=== PATIENT | male | born 1960 | race Caucasian/White ===

== ENCOUNTER → 2016-07-30 | Outpatient (CLI) | payer OTHER ==
[2016-07-30 16:19] LABS: Bilirubin, Delta 0.3 mg/dL (0.0-0.2); Total Bilirubin 0.5 mg/dL (0.2-1.3); Total Protein 7.7 g/dL (6.3-8.2)
== END | disposition home or self-care (01) ==
LOC: LABWHC1 15:23
PROVIDERS: ATTEND Internal Medicine
DX: R94.5 Abnormal results of liver function studies (principal)
CPT/HCPCS: 36415; 80076

== ENCOUNTER 2016-08-09 18:14 | Inpatient (IN) | payer OTHER ==
[2016-08-09] MEDS ORDERED: SODIUM CHLORIDE 0.9% 1,000 ML IV STA (18:54)
[2016-08-09] MEDS ORDERED: HYDROmorphone 1 MG/ML 1 ML SYRINGE IVP STA (18:54)
[2016-08-09] MEDS ORDERED: SODIUM CHLORIDE 0.9% 500 ML IV STA (18:54)
[2016-08-09] MEDS ORDERED: PANTOPRAZOLE 40 MG/10 ML VIAL IVP STA (18:54)
[2016-08-09] MEDS ORDERED: ONDANSETRON 4 MG/2 ML VIAL IVP STA (18:54)
--- NOTE | 2016-08-09 19:02 | ED ---
General Adult HPI - General Chief complaint: Abdominal Pain Stated complaint: vomiting Time Seen by Provider: 08/09/16 18:41 Source: patient, family, RN notes reviewed Mode of arrival: ambulatory Limitations: no limitations - History of Present Illness Initial comments: Chief complaint and history of present illness; this is a 55-year-old male here with his . Patient reports having abdominal cramping and pain for 3 or 4 days. Initially had nausea vomiting 2 days ago and no nausea vomiting for the last 2 days. But decreased appetite he has not had a bowel movement for 4 days. He has been taking medications to help him go but nothing is happened he has had cramps he has passed some gas. Patient normally has 1-2 bowel movements per day typically loose. - Related Data Home Medications Medication Instructions Recorded Confirmed Hydrochlorothiazide [Hydrodiuril] 25 mg PO DAILY 12/08/13 08/09/16 ALPRAZolam [ALPRAZolam] 0.25 mg PO TID PRN 07/17/14 08/09/16 Ondansetron Odt [Zofran ODT] 4 mg PO Q4H PRN 07/17/14 08/09/16 Cyclobenzaprine [Flexeril] 10 mg PO TID PRN 08/09/16 08/09/16 Ibuprofen [Motrin] 200 - 400 mg PO Q6HR PRN 08/09/16 08/09/16 Ketorolac [Toradol] 1 dose IM ONCE PRN 08/09/16 08/09/16 Allergies Allergy/AdvReac Type Severity Reaction Status Date / Time acetaminophen [From [place]] AdvReac Nausea Verified 08/09/16 19:07 hydrocodone [From [place]] AdvReac Nausea Verified 08/09/16 19:07 Review of Systems ROS Statement: Those systems with pertinent positive or pertinent negative responses have been documented in the HPI. Review of systems no visual acuity changes headache chest pain or shortness of breath. The patient has crampy abdominal pain. No back pain. Nausea vomiting 2 days ago and none since then. No bowel movement for the past 4 days. No trouble urinating but decreased input as D decreased output. No complaints of any weaknesses or neuro deficits. All systems reviewed. Past medical problems significant for hypertension. He had 14 inches of his colon removed 3 years ago for colon cancer. He was followed by 6 months of chemotherapy. No recurrence to date. Also history of kidney stones. No back pain difficulty urinating. Surgeries include partial colon resection, abdominal hernia repair, and appendectomy. Patient's family history sister had tongue cancer. Patient has ALLERGIES to hydrocodone. Nonsmoker nondrinker. ROS Other: All systems not noted in ROS Statement are negative. Past Medical History Past Medical History: Cancer, Hypertension Additional Past Medical History / Comment(s): HX COLON CA, INCISIONAL HERNIA, History of Any Multi-Drug Resistant Organisms: None Reported Past Surgical History: Appendectomy, Bowel Resection Additional Past Surgical History / Comment(s): RIGHT SIDE PORT A CATH Past Anesthesia/Blood Transfusion Reactions: No Reported Reaction Past Psychological History: Anxiety Smoking Status: Never smoker Past Alcohol Use History: None Reported Past Drug Use History: None Reported - Past Family History Sister(s) Family Medical History: Cancer Additional Family Medical History / Comment(s): TONGUE General Exam - General Exam Comments Initial Comments: General: The patient is awake and alert, complaining of on again off again abdominal cramping no bowel movement for 4 days. Vital signs show temperature 97.4 pulse 98 history rate 16 pulse ox 96% room air blood pressure 140/82. Mildly elevated systolic diastolic noted patient will be seen by his family doctor in the next week. Eye: Pupils are equal, round and reactive to light, extra-ocular movements are intact ; there is normal conjunctiva bilaterally. No signs of icterus. Ears, nose, mouth and throat: There are moist mucous membranes and no oral lesions. Neck: The neck is supple, there is no tenderness. Cardiovascular: There is a regular rate and rhythm. No murmur, rub or gallop is appreciated. Respiratory: Lungs are clear to auscultation, respirations are non-labored, breath sounds are equal. No wheezes, stridor, rales, or rhonchi. Gastrointestinal: Evidence of a surgical scar ventrally. 2 palpable hernias to the abdominal wall. Hypoactive bowel sounds. No masses palpable. Back: There is no tenderness to palpation in the midline. There is no obvious deformity. No rashes noted. Musculoskeletal: Normal ROM, no tenderness, There is no pedal edema. There is no calf tenderness or swelling. Sensation intact. Pulses equal bilaterally 2+. Neurological: No neuro deficits Skin: Skin is warm and dry and no rashes or lesions are noted. Psychiatric: Cooperative, appropriate mood & affect, normal judgment. Limitations: no limitations Course Vital Signs 08/09/16 08/09/16 08/09/16 18:27 20:35 22:00 Temperature 97.4 F L Pulse Rate 98 81 72 Respiratory 16 16 16 Rate Blood Pressure 140/82 136/74 134/71 O2 Sat by Pulse 96 96 96 Oximetry 08/09/16 23:51 Temperature Pulse Rate 80 Respiratory 16 Rate Blood Pressure 149/85 O2 Sat by Pulse 95 Oximetry Medical Decision Making - Medical Decision Making Medical decision making the patient's white count 9.2 hemoglobin 14 hematocrit of 43, urine clean no signs of infection. Amylase and lipase are normal limits. Potassium is 4.3 to BUN 19 creatinine 1.22 with a GFR greater than 60. Total bilirubin is elevated 1.6, AST ALT both elevated twice normal reports he has had elevated liver enzymes in the past. X-ray of the abdomen was done and reviewed by radiologist his impression is there is some mildly dilated loops of small bowel in the mid abdomen with fluid levels. Large bowel gas pattern is normal. There is no sign of free air. Lung bases are clear. There are no pathologic calcifications over the kidneys. Impression; mildly dilated small bowel is nonspecific and could relate partial mechanical obstruction or small bowel ileus. No free air. As read by Dr. Solares Ultrasound of the right upper quadrant was done and reviewed by radiologist his final impression is negative right upper quadrant abdominal sonogram. No gallstones or dilated ducts. No hydronephrosis seen in the right kidney. As read by Dr. Solares Labs and CAT scan report were read and reviewed with Dr. Dr. Robins on-call for Dr. Woods. Patient be admitted Dr. Woods with consultation from Dr. Garcia. Patient will be kept nothing by mouth this evening kept comfortable with analgesics as needed. And hydrated. - Lab Data Result diagrams: 08/09/16 19:10 08/09/16 19:10 Lab Results 08/09/16 08/09/16 08/09/16 Range/Units 19:10 19:10 19:10 WBC 9.7 (3.8-10.6) k/uL RBC 5.50 (4.30-5.90) m/uL Hgb 14.7 (13.0-17.5) gm/dL Hct 43.5 (39.0-53.0) % MCV 79.0 L (80.0-100.0) fL MCH 26.8 (25.0-35.0) pg MCHC 33.9 (31.0-37.0) g/dL RDW 14.0 (11.5-15.5) % Plt Count 181 (150-450) k/uL Neutrophils % 78 % Lymphocytes % 12 % Monocytes % 7 % Eosinophils % 3 % Basophils % 0 % Neutrophils # 7.5 (1.3-7.7) k/uL Lymphocytes # 1.1 (1.0-4.8) k/uL Monocytes # 0.6 (0-1.0) k/uL Eosinophils # 0.3 (0-0.7) k/uL Basophils # 0.0 (0-0.2) k/uL Sodium 141 (137-145) mmol/L Potassium 4.3 (3.5-5.1) mmol/L Chloride 101 (98-107) mmol/L Carbon Dioxide 27 (22-30) mmol/L Anion Gap 13 mmol/L BUN 19 (9-20) mg/dL Creatinine 1.22 (0.66-1.25) mg/dL Est GFR (MDRD) Af Amer >60 (>60 ml/min/1.73 sqM) Est GFR (MDRD) Non-Af >60 (>60 ml/min/1.73 sqM) Glucose 104 H (74-99) mg/dL Plasma Lactic Acid Amandeep 1.4 (0.7-2.0) mmol/L Calcium 9.1 (8.4-10.2) mg/dL Total Bilirubin 1.4 H (0.2-1.3) mg/dL AST 127 H (17-59) U/L ALT 140 H (21-72) U/L Alkaline Phosphatase 89 (38-126) U/L Total Protein 7.5 (6.3-8.2) g/dL Albumin 4.2 (3.5-5.0) g/dL Amylase <30 L (30-110) U/L Lipase 42 (23-300) U/L Urine Color Urine Appearance (Clear) Urine pH (5.0-8.0) Ur Specific [place] (1.001-1.035) Urine Protein (Negative) Urine Glucose (UA) (Negative) Urine Ketones (Negative) Urine Blood (Negative) Urine Nitrate (Negative) Urine Bilirubin (Negative) Urine Urobilinogen (<2.0) mg/dL Ur Leukocyte Esterase (Negative) 08/09/16 Range/Units 19:19 WBC (3.8-10.6) k/uL RBC (4.30-5.90) m/uL Hgb (13.0-17.5) gm/dL Hct (39.0-53.0) % MCV (80.0-100.0) fL MCH (25.0-35.0) pg MCHC (31.0-37.0) g/dL RDW (11.5-15.5) % Plt Count (150-450) k/uL Neutrophils % % Lymphocytes % % Monocytes % % Eosinophils % % Basophils % % Neutrophils # (1.3-7.7) k/uL Lymphocytes # (1.0-4.8) k/uL Monocytes # (0-1.0) k/uL Eosinophils # (0-0.7) k/uL Basophils # (0-0.2) k/uL Sodium (137-145) mmol/L Potassium (3.5-5.1) mmol/L Chloride (98-107) mmol/L Carbon Dioxide (22-30) mmol/L Anion Gap mmol/L BUN (9-20) mg/dL Creatinine (0.66-1.25) mg/dL Est GFR (MDRD) Af Amer (>60 ml/min/1.73 sqM) Est GFR (MDRD) Non-Af (>60 ml/min/1.73 sqM) Glucose (74-99) mg/dL Plasma Lactic Acid Amandeep (0.7-2.0) mmol/L Calcium (8.4-10.2) mg/dL Total Bilirubin (0.2-1.3) mg/dL AST (17-59) U/L ALT (21-72) U/L Alkaline Phosphatase (38-126) U/L Total Protein (6.3-8.2) g/dL Albumin (3.5-5.0) g/dL Amylase (30-110) U/L Lipase (23-300) U/L Urine Color Yellow Urine Appearance Clear (Clear) Urine pH 5.5 (5.0-8.0) Ur Specific [place] 1.006 (1.001-1.035) Urine Protein Negative (Negative) Urine Glucose (UA) Negative (Negative) Urine Ketones Negative (Negative) Urine Blood Negative (Negative) Urine Nitrate Negative (Negative) Urine Bilirubin Negative (Negative) Urine Urobilinogen 2.0 (<2.0) mg/dL Ur Leukocyte Esterase Negative (Negative) Disposition Clinical Impression: Incarcerated umbilical hernia Disposition: ADMITTED IP TO THIS HOSP Condition: Stable
[2016-08-09 19:29] LABS: Basophils % (A) 0 %; CH 27.5; Eosinophils # (A) 0.3 k/uL (0-0.7); Eosinophils % (A) 3 %; HCT 43.5 % (39.0-53.0); HDW 3.12; HGB 14.7 gm/dL (13.0-17.5); Luc # (Auto) 0.09; Luc % (Auto) 1; Lymphocytes # (A) 1.1 k/uL (1.0-4.8); Lymphocytes % (A) 12 %; MCH 26.8 pg (25.0-35.0); MCHC 33.9 g/dL (31.0-37.0); Mean Platelet Volume 7.5; Monocytes # (A) 0.6 k/uL (0-1.0); Monocytes % (A) 7 %; Neutrophils # (A) 7.5 k/uL (1.3-7.7); Neutrophils % (A) 78 %; WBC 9.7 k/uL (3.8-10.6); WBC (Perox) 9.76
[2016-08-09 19:39] LABS: Appearance,Urine Clear (Clear); Bilirubin,Urine Negative (Negative); Glucose,Urine (UA) Negative (Negative); Ketones,Urine Negative (Negative); Leukocyte Esterase,Urine Negative (Negative); Nitrite,Urine Negative (Negative); PH, Urine 5.5 (5.0-8.0); Protein,Urine Negative (Negative); Specific Gravity,Urine 1.006 (1.001-1.035); UA Billing (MACRO vs. MICRO) CHEM
[2016-08-09 19:43] LABS: ALT 140 U/L (21-72); AST 127 U/L (17-59); Alkaline Phosphatase 89 U/L (38-126); Amylase <30 U/L (30-110); Anion Gap 13 mmol/L; Blood Urea Nitrogen 19 mg/dL (9-20); Calcium 9.1 mg/dL (8.4-10.2); Carbon Dioxide 27 mmol/L (22-30); Chloride 101 mmol/L (98-107); Glucose 104 mg/dL (74-99); Non-African American GFR(MDRD) >60 (>60 ml/min/1.73 sqM); Potassium 4.3 mmol/L (3.5-5.1); Sodium 141 mmol/L (137-145); Total Bilirubin 1.4 mg/dL (0.2-1.3); Total Protein 7.5 g/dL (6.3-8.2)
--- NOTE | 2016-08-09 20:00 | XR ---
EXAMINATION TYPE: XR abdomen 2V DATE OF EXAM: 08/09/2016 7:45 PM COMPARISON: 10/19/2014 HISTORY: Vomiting TECHNIQUE: 2 views FINDINGS: There are some mildly dilated loops of small bowel in the mid abdomen with fluid levels. La rge bowel gas pattern is normal. There is no sign of free air. Lung bases are clear. There are no pat hologic calcifications over the kidneys. IMPRESSION: Mildly dilated small bowel is nonspecific and could relate to partial mechanical obstruct ion or small bowel ileus. No free air.
[2016-08-09] MEDS ORDERED: IOHEXOL 350 MG/ML 25 ML BOTTLE (ORAL USE) PO PRN (20:52)
[2016-08-09] MEDS ORDERED: RX INFO: IV CONTRAST WAS GIVEN 1 EACH MISC MISCELLANE PRN (20:52)
--- NOTE | 2016-08-09 21:16 | US ---
EXAMINATION TYPE: US abdomen limited DATE OF EXAM: 08/09/2016 8:40 PM COMPARISON: CT in pacs CLINICAL HISTORY: nausea vomiting, elevated bilirubin and liver enzy. Abdomen pain and N/V/D x 4 days , obese patient EXAM MEASUREMENTS: Liver Length: 20.0 cm Gallbladder Wall: 0.3 cm CBD: 0.3 cm Right Kidney: 12.5 x 6.2 x 6.6 cm TECHNOLOGIST IMPRESSION: Pancreas: obscured by overlying bowel gas Liver: enlarged at 20.0cm, visualized portions appear slightly heterogeneous with increased echogeni city throughout, scanned intercostally, limited by rib shadowing Gallbladder: visualized portions appear wnl, scanned intercostally, limited by rib shadowing Evidence for sonographic Aceves's sign: no CBD: visualized portions wnl, limited by overlying bowel gas Right Kidney: visualized portions wnl, limited by rib shadowing and overlying bowel gas IMPRESSION: Negative right upper quadrant abdominal sonogram. No gallstones or dilated ducts. No hydr onephrosis seen in the right kidney.
--- NOTE | 2016-08-09 23:37 | CT ---
EXAMINATION TYPE: CT abdomen pelvis w con DATE OF EXAM: 08/09/2016 10:53 PM COMPARISON: 10/22/2015 HISTORY: abd pain and constipation, history of colon CA CT DLP: 2018.80 mGycm Automated exposure control for dose reduction was used. TECHNIQUE: Helical acquisition of images was performed from the lung bases through the pelvis. CONTRAST: Performed with Oral Contrast and with IV Contrast, patient injected with 100 mL of Omnipaque 300. FINDINGS: The lung bases are clear. There is no pleural effusion. The liver spleen pancreas gallbladder appear normal. Bile ducts are not dilated. There is no adrenal mass. Kidneys show satisfactory contrast opac ification. There is no hydronephrosis. There is a 2 mm calcification in the lower pole right kidney. There is no retroperitoneal adenopathy. There is an umbilical hernia that contains omental fat and also a loop of small bowel. There are mult iple dilated small bowel loops with fluid. These measure up to 3.4 cm. The hernia appears to be the t ransition point. Large bowel appears normal without sign of obstruction. The bladder distends smoothly. There is no evidence of a pelvic mass. There are prostatic calcificati ons. I see no bony destructive process. IMPRESSION: THERE IS AN INCARCERATED LOOP OF SMALL BOWEL WITH DILATED SMALL BOWEL CONSISTENT WITH A MECHANICAL SM ALL BOWEL OBSTRUCTION THAT IS NEW COMPARED TO LAST CT SCAN. VENTRAL HERNIA.
[2016-08-10] MEDS ORDERED: KETOROLAC 30 MG/ML 1 ML VIAL IVP STA (00:06)
[2016-08-10] MEDS ORDERED: NALOXONE 0.4 MG/ML 1 ML VIAL IV PRN (00:26)
[2016-08-10] MEDS ORDERED: HYDROmorphone 1 MG/ML 1 ML SYRINGE IVP STA (00:40)
[2016-08-10] MEDS: SODIUM CHLORIDE 0.9% 1,000 ML IV SCH ×2 (00:50→08:05)
[2016-08-10] MEDS: KETOROLAC 30 MG/ML 1 ML VIAL IVP PRN (04:20)
[2016-08-10] MEDS: HYDROmorphone 1 MG/ML 1 ML SYRINGE IVP PRN ×5 (04:47→23:04)
[2016-08-10] MEDS: PANTOPRAZOLE 40 MG/10 ML VIAL IV SCH (08:58)
[2016-08-10] MEDS: POTASSIUM CHLORIDE IV SCH ×4 (12:34→23:04)
[2016-08-10] MEDS: NACL IV SCH ×4 (12:34→23:04)
[2016-08-10] MEDS: DEXTROSE IV SCH ×4 (12:34→23:04)
--- NOTE | 2016-08-10 12:42 | CONS ---
DATE OF CONSULTATION: This is a 55-year-old white male who was admitted by Dr. Robins and Dr. Razo was asked to see the patient in consultation as he is the patient's primary care physician. I saw the patient for Dr. Razo as I am covering him this weekend. The patient was brought to the emergency room with complains of nausea, vomiting, and abdominal pain and constipation for the past 3 days and this was progressively getting worse. Patient was getting abdominal cramps and there was no blood in the vomitus. He was able to pass gas, but was constipated for about 3 days. In the emergency room, his CBC showed a WBC count of 9.7 and hemoglobin 14.7, and platelet count on 181,000. Sodium 141, potassium 4.3, creatinine 1.22 and BUN 19, glucose 104. AST was slightly elevated, which was 127. ALT also slightly elevated, which was 140. Serum amylase and lipase are within normal limits. Urinalysis was negative. X-ray of the abdomen showed a mild dilated bowel small bowel loops and a CT of the abdomen showed incarcerated ventral hernia. Ultrasound of the abdomen was essentially negative. Patient was admitted to the hospital for further evaluation and treatment. His past medical history reveals that he is known to have hypertensive cardiovascular disease and also has a history of carcinoma of the colon and he has had partial colon resection about 14 inches of colon removed 3 years ago and following this he has had adjuvant chemotherapy for about 6 months. He also has history of incisional hernia repair in the past. He hypertensive cardiovascular disease and also history of kidney stones. His current medications include: 1. HydroDIURIL 25 mg daily. 2. Xanax 0.25 mg p.o. t.i.d. p.r.n. 3. Also he has been on Motrin p.r.n. 4. Flexeril 10 mg t.i.d. p.r.n. HE IS ALLERGIC TO [place], WHICH MAKES HIM NAUSEATED. He does not smoke and he does not drink alcohol. FAMILY HISTORY: On sister had a cancer of the tongue otherwise family history noncontributory. REVIEW OF SYSTEMS: Patient denies any headache. Appetite has been poor lately and also he has nausea, vomiting, and constipation and abdominal cramps. He denies any chest pain. He has no cough. He has no polyuria or dysuria. He has no neurological symptoms. Physical examination reveals a 55-year-old white male moderately obese. He is alert and oriented. He is in no acute distress. He is receiving IV Dilaudid on a p.r.n. basis for pain control. There is no jaundice. There is no generalized lymphadenopathy. There are no petechiae or bruises. His temperature 97.4, pulse 88 per minute and respiration 16, blood pressure 148/84. Examination of the ENT negative. Neck is supple. There is no jugular venous distention. There is no goiter. There is no carotid bruit. Heart is in sinus rhythm. Lungs are clear to auscultation and percussion. ABDOMEN: Soft and slightly distended. There is evidence of ventral hernia and there is bowel sounds hyperactive in the hernia site. There is no mass palpable. Examination of the lower extremities revealed no pitting edema. Neurologic examination does not reveal any localizing signs IMPRESSION: 1. Nausea, vomiting, abdominal cramps and constipation. 2. Incarcerated ventral hernia. 3. Past history of colon cancer status post partial colon resection and postop postoperative adjuvant chemotherapy. 4. Hypertensive cardiovascular disease. Patient's vital signs are stable. There are no acute cardiorespiratory problems. CBC and CMP and EKG unremarkable. He is medically cleared for surgery. Thank you for asking me to see this patient in consultation. Dr. Razo will be back to work tomorrow and he will resume care of the patient for his medical problems.
--- NOTE | 2016-08-10 16:38 | P.GSHP ---
History of Present Illness H&P Date: 08/10/16 Chief Complaint: Abdominal pain and constipation The patient states she's developed some midabdominal discomfort crampy in nature associated with nausea and vomiting and a lot of which resolved about 2 days ago. However he hadn't had a bowel movement for about 5 days. I took laxatives without improvement. She really did not felt any definite lump or mass. ventral incisional hernia. Had colon resection for malignancy several years ago followed by chemotherapy. He had a computed tomography scan which showed an incarcerated ventral incisional hernia with a loop of small bowel in it. Not particularly edematous. Ultrasound was negative for gallstones. Past history: As above. Hypertension. Appendectomy. Social history patient is . Alcohol socially. Review of systems otherwise negative. No chest pain no urinary symptoms no blood in the stool. No OUTREACH SPECIALIST problems. Physical exam the patient is awake alert in no distress comfortable cheerful. States his abdominal discomfort is markedly improved. His temperature is normal. Vitals are normal. Color and hydration are good. Heart regular rhythm no murmurs. Lungs are clear. Abdomen is soft. Not distended. Has a midline scar. His ventral incisional hernia just above the umbilicus. Soft tissue fullness and swelling mild tenderness but no guarding or rebound. Irreducible. Fairly nontender now. Extremities normal. OUTREACH SPECIALIST intact. Impression incarcerated ventral incisional hernia stable. No evidence of acute obstruction or strangulation at this time. Recommendation. Recommend a off the incarcerated ventral incisional hernia which will be scheduled for tomorrow with Dr. Woods patient understands and agrees. Past Medical History Past Medical History: Cancer, Hypertension Additional Past Medical History / Comment(s): HX COLON CA, INCISIONAL HERNIA, History of Any Multi-Drug Resistant Organisms: None Reported Past Surgical History: Appendectomy, Bowel Resection Additional Past Surgical History / Comment(s): RIGHT SIDE PORT A CATH. Removed Past Anesthesia/Blood Transfusion Reactions: No Reported Reaction Past Psychological History: Anxiety Smoking Status: Never smoker Past Alcohol Use History: None Reported Past Drug Use History: None Reported - Past Family History Father History Unknown: Yes Mother History Unknown: Yes Sister(s) Family Medical History: Cancer Additional Family Medical History / Comment(s): TONGUE Medications and Allergies Home Medications Medication Instructions Recorded Confirmed Type Hydrochlorothiazide [Hydrodiuril] 25 mg PO DAILY 12/08/13 08/09/16 History ALPRAZolam [ALPRAZolam] 0.25 mg PO TID PRN 07/17/14 08/09/16 History Ondansetron Odt [Zofran ODT] 4 mg PO Q4H PRN 07/17/14 08/09/16 History Allergies Allergy/AdvReac Type Severity Reaction Status Date / Time hydrocodone [From [place]] AdvReac Nausea Verified 08/09/16 19:07 Surgical - Exam Vital Signs Temp Pulse Resp BP Pulse Ox 97.4 F L 98 16 140/82 96 08/09/16 18:27 08/09/16 18:27 08/09/16 18:27 08/09/16 18:27 08/09/16 18:27 Results - Labs 08/09/16 19:10 08/09/16 19:10
[2016-08-10] MEDS: ONDANSETRON 4 MG/2 ML VIAL IVP PRN (18:27)
[2016-08-10] MEDS: HEPARIN SODIUM,PORCINE 5,000 UNIT/ML 1 ML VIAL SQ SCH (21:40)
[2016-08-11] MEDS: HYDROmorphone 1 MG/ML 1 ML SYRINGE IVP PRN ×5 (02:37→23:55)
[2016-08-11 07:56] LABS: Basophils % (A) 1 %; CH 27.2; CHCM 33.2; Eosinophils # (A) 0.2 k/uL (0-0.7); Eosinophils % (A) 3 %; HCT 40.5 % (39.0-53.0); HDW 3.13; HGB 13.1 gm/dL (13.0-17.5); Luc # (Auto) 0.09; Luc % (Auto) 2; Lymphocytes # (A) 1.4 k/uL (1.0-4.8); Lymphocytes % (A) 25 %; MCH 26.7 pg (25.0-35.0); MCHC 32.5 g/dL (31.0-37.0); MCV 82.2 fL (80.0-100.0); Mean Platelet Volume 6.7; Monocytes # (A) 0.4 k/uL (0-1.0); Monocytes % (A) 6 %; Neutrophils # (A) 3.7 k/uL (1.3-7.7); Neutrophils % (A) 64 %; RBC 4.92 m/uL (4.30-5.90); RDW 14.4 % (11.5-15.5); WBC 5.8 k/uL (3.8-10.6); WBC (Perox) 5.96
--- NOTE | 2016-08-11 08:05 | P.PN ---
Progress Note - Text The patient is a 55-year-old gentleman who presented 2 days ago to the emergency room with continued abdominal discomfort and nausea and vomiting along with lack of bowel movements. Patient is had a previous colon cancer resection in the past several years and CAT scan revealed an incarcerated ventral incisional hernia with a loop of bowel present. Patient does have history as stated above of previous colon cancer treated with chemotherapy along with a history of hypertension and obesity. Also hyperlipidemia. Patient has been evaluated by surgery. This morning he is still having some intermittent abdominal discomfort but generally controlled with analgesics. Still has not had any bowel movements. Intermittent nausea. Vital signs reveal a alert and cooperative gentleman in no acute distress. Temperature was 97.9 with a pulse of 74 and respirations nonlabored at 18. Blood pressure 115/75 and he is 97% saturated on room air. No carotid bruits. Lung and heart examination is clear and regular. Abdomen is generally soft without rebound guarding or masses detected. No edema. No neurological deficits noted. Laboratory values CBC was for the most part unremarkable with a white count of 9.7 and hemoglobin 14.7 and platelet count of 181. Chemistries did reveal elevated AST and ALTs of 127 and 140 respectively. Amylase and lipase were unremarkable. Glucose 104. Bilirubin slightly elevated at 1.4. Urinalysis negative. Urine culture no growth. Impressions and plans: Overall this 55-year-old gentleman with underlying history of hypertension and obesity generally appears cardiovascular-kaur stable for likely surgery for an incarcerated hernia. Discussed with patient and family at bedside this morning. Will await further surgical recommendations.
[2016-08-11 08:13] LABS: Anion Gap 10 mmol/L; Blood Urea Nitrogen 14 mg/dL (9-20); Calcium 8.4 mg/dL (8.4-10.2); Carbon Dioxide 25 mmol/L (22-30); Chloride 105 mmol/L (98-107); Glucose 97 mg/dL (74-99); Non-African American GFR(MDRD) >60 (>60 ml/min/1.73 sqM); Potassium 4.2 mmol/L (3.5-5.1); Sodium 140 mmol/L (137-145)
[2016-08-11] MEDS: HEPARIN SODIUM,PORCINE 5,000 UNIT/ML 1 ML VIAL SQ SCH ×2 (09:09→23:57)
[2016-08-11] MEDS: PANTOPRAZOLE 40 MG/10 ML VIAL IV SCH (09:09)
[2016-08-11] MEDS: NACL IV SCH ×4 (09:10→22:39)
[2016-08-11] MEDS: DEXTROSE IV SCH ×4 (09:10→22:39)
[2016-08-11] MEDS: POTASSIUM CHLORIDE IV SCH ×4 (09:10→22:39)
[2016-08-11] MEDS ORDERED: IV FLUID CONTINUATION 1,000 ML IV ONE (16:15)
[2016-08-11] MEDS ORDERED: ONDANSETRON 4 MG/2 ML VIAL IVP ONE (16:16)
[2016-08-11] MEDS ORDERED: DEXAMETHASONE SOD PHOS (MDV) 100 MG/10 ML VIAL IVP ONE (16:17)
--- NOTE | 2016-08-11 16:17 | P.PN ---
Subjective Principal diagnosis: Abdominal wall hernia Patient says his pain is improved. Per the H&P pain began last week. This was crampy in nature. Appetite is diminished. No bowel function. CAT scan shows bowel loops within the abdominal wall hernia. Objective - Vital Signs Vital signs: Vital Signs Temp 97.5 F L 08/11/16 15:46 Pulse 72 08/11/16 15:46 Resp 16 08/11/16 15:46 BP 148/90 08/11/16 15:46 Pulse Ox 92 L 08/11/16 15:46 Intake & Output 08/10/16 08/11/16 08/11/16 18:59 06:59 18:59 Other: Voiding Method Toilet Toilet # Voids 1 - Exam Abdomen: Soft, slightly obese, minimally tender, mildly distended, multiple fascial defects present from the mid epigastric down to the umbilical region. The site of previous incisional herniorrhaphy appears free of fascial defect at this time. There is a palpable mass within one of these hernias that I believe represents the bowel loops seen on CAT scan. This appears to be incarcerated. - Labs CBC & Chem 7: 08/11/16 07:31 08/11/16 07:28 Assessment and Plan (1) Incarcerated incisional hernia Narrative/Plan: Clinical scenario was discussed in detail with the patient. At this time would advise operative repair of this incarcerated incisional hernia. The potential for bowel resection and mesh placement was discussed. The risks of bleeding, infection, bowel injury, recurrence, wound infection, anesthesia-related comp locations were discussed. He understands and wishes to proceed. Status: Acute
[2016-08-11] MEDS ORDERED: PROPOFOL 10 MG/ML 20 ML VIAL IV ONE (16:32)
[2016-08-11] MEDS ORDERED: SUCCINYLCHOLINE CHLORIDE 100 MG/5 ML SYR IV ONE (16:32)
[2016-08-11] MEDS ORDERED: VECURONIUM 10 MG VIAL IV ONE (16:32)
[2016-08-11] MEDS ORDERED: LIDOCAINE 1% INJ 10MG/ML (20 ML MDV) ONE (16:32)
[2016-08-11] MEDS ORDERED: MIDAZOLAM 2 MG/2 ML VIAL ONE (16:32)
[2016-08-11] MEDS ORDERED: KETOROLAC 30 MG/ML 1 ML VIAL ONE (16:32)
[2016-08-11] MEDS ORDERED: fentaNYL (PF) 50 MCG/ML 2 ML AMP ONE (16:32)
[2016-08-11] MEDS ORDERED: HYDROmorphone (PF) 1 MG/ML ONE (16:32)
[2016-08-11] MEDS ORDERED: SODIUM CHLORIDE 0.9% 50 ML with ceFAZolin 3,000 MG IV ONE ×2 (17:00)
[2016-08-11] MEDS ORDERED: BUPIVACAINE (PF) 0.25% 30 ML VIAL SQ ONE (17:16)
[2016-08-11] MEDS ORDERED: LACTATED RINGERS 1,000 ML IV ONE (18:37)
[2016-08-11] MEDS: HYDROmorphone 1 MG/ML 1 ML SYRINGE IVP ONE ×3 (19:24→19:38)
--- NOTE | 2016-08-11 20:35 | P.OP ---
Date of Procedure: 08/11/16 Procedure(s) Performed: PREOPERATIVE DIAGNOSIS: Incarcerated incisional hernia POSTOPERATIVE DIAGNOSIS: Same PROCEDURE: 1. Repair incarcerated incisional hernia with mesh 2. Lysis of adhesions 3. Partial omentectomy SURGEON: Chuck EBL: 50 mL ANESTHESIA: General COMPLICATIONS: None OPERATIVE PROCEDURE: Patient place never table in supine position. The patient was placed under general anesthesia. A Paez catheter and oral gastric tube were placed. The abdomen was prepped and draped in the usual sterile fashion. The patient's midline incision was re-incised. Dissection through the subcutaneous fat took place using electrocautery. The patient's hernia defects were identified. The fascia was circumferentially dissected. The patient had 4 fairly large hernia defects with the largest measuring about 4 cm in diameter. These were all included into one large fascial opening. In doing so the hernia sacs were excised. A portion of the omentum required excision as well. Extensive lysis of adhesions to the undersurface of the abdominal wall took place. At the site of the incarcerated hernia there was a portion of bowel present as well as omentum that revealed chronic inflammatory changes. The hernia sac here was quite thickened. The bowel thankfully was viable. No serosal tears were identified. The omentum present was excised. I did later extend the incision into the infraumbilical location because of a defect there as well. A Ventrio 18 cm mesh was utilized. This was circumferentially secured to the fascia using trans-fascial 2-0 Nurolon and 0 Ethibond sutures. The secure strap open device was also utilized circumferentially. Exquisite care was taken to avoid injury to the adjacent small bowel loops. Once the mesh was securely in place the midline fascia was reapproximated using interrupted 0 Ethibond sutures. The subcutaneous tissues were closed using interrupted 20 and 3-0 Vicryl sutures after a drain was placed anterior to the fascial closure. This drain was brought out through a separate stab incision in the left lower quadrant. The skin was then reapproximated using kamilla. A sterile dressing was applied. DISPOSITION: Stable to recovery room
[2016-08-12] MEDS: PIPERACILLIN-TAZOBACTAM 3.375 GM in DEXTROSE/WATER 1 50ML.BAG IVPB SCH ×4 (00:03→23:40)
[2016-08-12] MEDS: HYDROmorphone 1 MG/ML 1 ML SYRINGE IVP PRN ×8 (02:27→19:36)
[2016-08-12] MEDS: DEXTROSE IV SCH ×4 (06:35→20:27)
[2016-08-12] MEDS: NACL IV SCH ×4 (06:35→20:27)
[2016-08-12] MEDS: POTASSIUM CHLORIDE IV SCH ×4 (06:35→20:27)
[2016-08-12] MEDS: PANTOPRAZOLE 40 MG/10 ML VIAL IV SCH (07:18)
[2016-08-12] MEDS: HEPARIN SODIUM,PORCINE 5,000 UNIT/ML 1 ML VIAL SQ SCH ×3 (07:18→23:40)
--- NOTE | 2016-08-12 08:27 | P.PN ---
Progress Note - Text The patient is a 55-year-old woman who underwent repair of his incarcerated incisional hernia with mesh placement along with lysis of adhesions and partial omentectomy by surgery yesterday, Dr. Woods. Presently he is resting in bed and appears overall comfortable. Alert and oriented. Denies any nausea or vomiting. No shortness of breath or chest pain. Vital signs reveal temperature 98.3 with a pulse of 96 and respirations 16. Blood pressure 128/79 and he is 96% saturated on 2 L. Lung and heart examination is clear and regular. No unusual distal edema. No focal neurological deficits. Lab values: White count is 5.8 with a hemoglobin 13.1 and a platelet count of 161. A basic metabolic panel was unremarkable with a normal potassium 4.2 and a GFR greater than 60. BUN of 14 and creatinine 1.08. Impressions and plan: Patient overall is doing well post surgery and at this point can be advanced as per surgery with activities and diet.
--- NOTE | 2016-08-12 14:11 | P.PN ---
Subjective Principal diagnosis: Abdominal wall hernia Patient doing a mild discomfort. Denies nausea vomiting. He is thirsty. No flatus. Objective - Vital Signs Vital signs: Vital Signs Temp 98.3 F 08/12/16 02:24 Pulse 96 08/12/16 02:24 Resp 16 08/12/16 04:00 BP 128/79 08/12/16 02:24 Pulse Ox 96 08/12/16 02:24 Intake & Output 08/11/16 08/12/16 08/12/16 18:59 06:59 18:59 Intake Total 2150 800 Output Total 850 1500 Balance 1300 -700 Intake: IV 1350 800 Dextrose 5%-0.45% NaCl 1, 300 000 ml @ 100 mls/hr IV . Q10H5M HARPREET with Potassium Chloride 15 meq Rx#: [id number] Intake, IV Titration 800 Amount Dextrose 5%-0.45% NaCl 1, 800 000 ml @ 100 mls/hr IV . Q10H5M HARPREET with Potassium Chloride 15 meq Rx#: [id number] Output: Drainage 50 Abdomen 50 Urine 800 1450 Uretheral (Paez) 1200 Estimated Blood Loss 50 Other: Voiding Method Toilet Indwelling Catheter Indwelling Catheter # Voids 2 - Exam Abdomen: Soft, nondistended, mild tenderness dressing intact - Labs CBC & Chem 7: 08/11/16 07:31 08/11/16 07:28 Assessment and Plan (1) Incarcerated incisional hernia Narrative/Plan: Gradually increase activity. Begin clear liquid diet. Remove Paez catheter. Status: Acute
[2016-08-12] MEDS: KETOROLAC 30 MG/ML 1 ML VIAL IVP PRN ×2 (15:00→21:14)
[2016-08-13] MEDS: HYDROmorphone 1 MG/ML 1 ML SYRINGE IVP PRN ×3 (01:13→18:58)
[2016-08-13] MEDS: NACL IV SCH ×6 (04:38→21:45)
[2016-08-13] MEDS: POTASSIUM CHLORIDE IV SCH ×6 (04:38→21:45)
[2016-08-13] MEDS: DEXTROSE IV SCH ×6 (04:38→21:45)
[2016-08-13] MEDS: ONDANSETRON 4 MG/2 ML VIAL IVP PRN (04:44)
[2016-08-13] MEDS: KETOROLAC 30 MG/ML 1 ML VIAL IVP PRN ×3 (05:24→18:58)
[2016-08-13 07:14] LABS: Basophils % (A) 0 %; CH 27.1; CHCM 33.4; Eosinophils # (A) 0.2 k/uL (0-0.7); Eosinophils % (A) 2 %; HCT 44.1 % (39.0-53.0); HDW 3.04; HGB 14.5 gm/dL (13.0-17.5); Luc # (Auto) 0.09; Luc % (Auto) 1; Lymphocytes # (A) 0.8 k/uL (1.0-4.8); Lymphocytes % (A) 9 %; MCH 26.7 pg (25.0-35.0); MCHC 32.8 g/dL (31.0-37.0); MCV 81.6 fL (80.0-100.0); Mean Platelet Volume 7.1; Monocytes # (A) 0.4 k/uL (0-1.0); Monocytes % (A) 5 %; Neutrophils # (A) 7.2 k/uL (1.3-7.7); Neutrophils % (A) 83 %; RBC 5.41 m/uL (4.30-5.90); RDW 14.1 % (11.5-15.5); WBC 8.7 k/uL (3.8-10.6); WBC (Perox) 9.55
--- NOTE | 2016-08-13 07:27 | P.PN ---
Progress Note - Text The patient is a 55-year-old gentleman who has undergone repair of incarcerated incisional hernia with mesh placement along with lysis of adhesions and partial omentectomy by Dr. Woods 2 days previous. Patient is alert lying up in bed. Denies any nausea or vomiting. No chest pain or shortness of breath. He has not had a bowel movement but is passing flatus. States he was up walking the halls yesterday. Vital signs reveal temperature of 97.7 with a pulse of 92 and respirations nonlabored at 16. Blood pressure 136/89 and he is 94% saturated on room air. Lung and heart exam was clear and regular. Abdomen has some incisional discomfort. Extremities have no unusual edema and compression pneumatic stockings in place. No neurological deficits. Laboratory values: CBC was basically unremarkable. White count 8.7 hemoglobin 14.5 and platelet count 189. Impressions and plans: Once again patient can be advanced as per surgery. Discharge to home when ready per surgery. Please call if any questions concerns or problems. He may resume his home medications upon discharge. Routine office follow-up. Patient likely has appointment.
[2016-08-13 07:35] LABS: Anion Gap 12 mmol/L; Blood Urea Nitrogen 14 mg/dL (9-20); Calcium 8.4 mg/dL (8.4-10.2); Carbon Dioxide 22 mmol/L (22-30); Chloride 104 mmol/L (98-107); Glucose 141 mg/dL (74-99); Non-African American GFR(MDRD) >60 (>60 ml/min/1.73 sqM); Potassium 4.3 mmol/L (3.5-5.1); Sodium 138 mmol/L (137-145)
[2016-08-13] MEDS: PIPERACILLIN-TAZOBACTAM 3.375 GM in DEXTROSE/WATER 1 50ML.BAG IVPB SCH ×3 (09:11→23:15)
[2016-08-13] MEDS: HEPARIN SODIUM,PORCINE 5,000 UNIT/ML 1 ML VIAL SQ SCH ×3 (09:11→23:15)
[2016-08-13] MEDS: PANTOPRAZOLE 40 MG/10 ML VIAL IV SCH (09:11)
[2016-08-13] MEDS ORDERED: ONDANSETRON 4 MG/2 ML VIAL IVP PRN (11:33)
--- NOTE | 2016-08-13 12:08 | P.PN ---
Subjective Principal diagnosis: Abdominal wall hernia Patient more nauseous today. Pain is improved. He was able to ambulate quite a bit yesterday and has been in the chair from that time. He had some flatus this morning. He is able to void on his own. No bowel movement yet. Labs appear normal. No tachycardia. Objective - Vital Signs Vital signs: Vital Signs Temp 97.3 F L 08/13/16 07:30 Pulse 95 08/13/16 07:30 Resp 16 08/13/16 07:30 BP 143/86 08/13/16 07:30 Pulse Ox 94 L 08/13/16 07:30 Intake & Output 08/12/16 08/13/16 08/13/16 18:59 06:59 18:59 Intake Total 800 800 Output Total 450 1150 Balance 350 -350 Weight 99.79 kg Intake: IV 800 800 Dextrose 5%-0.45% NaCl 1, 800 800 000 ml @ 100 mls/hr IV . Q10H5M HARPREET with Potassium Chloride 15 meq Rx#: [id number] Output: Drainage 40 Abdomen 40 Urine 450 1110 Uretheral (Paez) 450 Other: Voiding Method Indwelling Catheter Urinal - Exam Abdomen: Soft, mild distention, mild mid abdominal tenderness, incision clean and dry and - Labs CBC & Chem 7: 08/13/16 06:57 08/13/16 06:57 Labs: Abnormal Lab Results - Last 24 Hours (Table) 08/13/16 08/13/16 Range/Units 06:57 06:57 Lymphocytes # 0.8 L (1.0-4.8) k/uL Glucose 141 H (74-99) mg/dL Assessment and Plan (1) Incarcerated incisional hernia Narrative/Plan: Add Reglan for nausea. His frequency of Zofran. Continue Toradol for pain control. Continue ambulation. Sips of clears only at this time. Status: Acute
[2016-08-13] MEDS ORDERED: METOCLOPRAMIDE 5 MG/ML 2 ML VIAL ONE (12:38)
[2016-08-13] MEDS: BACITRACIN 500 UNIT/GM OINT 28.4 GM TUBE TOPICAL SCH (14:15)
[2016-08-13] MEDS: METOCLOPRAMIDE 5 MG/ML 2 ML VIAL IVP SCH ×2 (17:37→23:15)
[2016-08-14] MEDS: METOCLOPRAMIDE 5 MG/ML 2 ML VIAL IVP SCH ×4 (05:08→23:16)
[2016-08-14] MEDS: HYDROmorphone 1 MG/ML 1 ML SYRINGE IVP PRN ×6 (05:17→18:09)
[2016-08-14 08:11] LABS: Basophils % (A) 1 %; CH 27.1; CHCM 32.9; Eosinophils # (A) 0.3 k/uL (0-0.7); Eosinophils % (A) 4 %; HCT 40.7 % (39.0-53.0); HDW 3.02; HGB 13.1 gm/dL (13.0-17.5); Luc # (Auto) 0.15; Luc % (Auto) 2; Lymphocytes # (A) 1.3 k/uL (1.0-4.8); Lymphocytes % (A) 19 %; MCH 26.7 pg (25.0-35.0); MCHC 32.2 g/dL (31.0-37.0); MCV 82.7 fL (80.0-100.0); Mean Platelet Volume 7.9; Monocytes # (A) 0.4 k/uL (0-1.0); Monocytes % (A) 6 %; Neutrophils % (A) 69 %; RBC 4.92 m/uL (4.30-5.90); RDW 14.2 % (11.5-15.5); WBC 7.2 k/uL (3.8-10.6); WBC (Perox) 7.64
[2016-08-14 08:20] LABS: Anion Gap 14 mmol/L; Blood Urea Nitrogen 11 mg/dL (9-20); Calcium 8.6 mg/dL (8.4-10.2); Carbon Dioxide 23 mmol/L (22-30); Chloride 105 mmol/L (98-107); Glucose 111 mg/dL (74-99); Non-African American GFR(MDRD) >60 (>60 ml/min/1.73 sqM); Potassium 3.9 mmol/L (3.5-5.1); Sodium 142 mmol/L (137-145)
[2016-08-14] MEDS: PIPERACILLIN-TAZOBACTAM 3.375 GM in DEXTROSE/WATER 1 50ML.BAG IVPB SCH ×3 (08:25→23:21)
[2016-08-14] MEDS: PANTOPRAZOLE 40 MG/10 ML VIAL IV SCH (08:29)
[2016-08-14] MEDS: HEPARIN SODIUM,PORCINE 5,000 UNIT/ML 1 ML VIAL SQ SCH ×3 (08:29→23:17)
[2016-08-14] MEDS: BACITRACIN 500 UNIT/GM OINT 28.4 GM TUBE TOPICAL SCH (08:29)
[2016-08-14 11:59] VITALS: BMI 29.7
[2016-08-14] MEDS: NACL IV SCH ×4 (12:34→20:08)
[2016-08-14] MEDS: DEXTROSE IV SCH ×4 (12:34→20:08)
[2016-08-14] MEDS: POTASSIUM CHLORIDE IV SCH ×4 (12:34→20:08)
--- NOTE | 2016-08-14 14:49 | P.PN ---
Subjective Principal diagnosis: Abdominal wall hernia Patient doing much better today. His nausea has resolved. He is tolerating a clear liquid diet. He is still having flatus. No bowel movement. Pain is improved as well. Labs and vital signs are normal. Objective - Vital Signs Vital signs: Vital Signs Temp 97.6 F 08/14/16 08:00 Pulse 84 08/14/16 08:00 Resp 16 08/14/16 08:00 BP 138/92 08/14/16 08:00 Pulse Ox 96 08/14/16 08:00 Intake & Output 08/13/16 08/14/16 08/14/16 18:59 06:59 18:59 Intake Total 1040 600 740 Output Total 500 20 500 Balance 540 580 240 Weight 99.5 kg 99.5 kg Intake: IV 650 600 500 Dextrose 5%-0.45% NaCl 1, 650 600 500 000 ml @ 100 mls/hr IV . Q10H5M HARPREET with Potassium Chloride 15 meq Rx#: [id number] Intake, IV Titration 50 Amount Piperacillin-Tazobactam 3 50 .375 gm In Dextrose/Water 1 50ml.bag @ 12.5 mls/hr IVPB Q8HR HARPREET Rx#: [id number] Oral 340 240 Output: Drainage 20 Abdomen 20 Urine 500 500 Other: Voiding Method Urinal # Voids 1 1 - Exam Abdomen: Soft, nondistended, mild incisional tenderness - Labs CBC & Chem 7: 08/14/16 07:46 08/14/16 07:46 Labs: Abnormal Lab Results - Last 24 Hours (Table) 08/14/16 Range/Units 07:46 Glucose 111 H (74-99) mg/dL Assessment and Plan (1) Incarcerated incisional hernia Narrative/Plan: Advance diet. Continue ambulation. Possible discharge tomorrow afternoon. Status: Acute
[2016-08-14 18:34] VITALS: RESP 16
[2016-08-14] MEDS: KETOROLAC 30 MG/ML 1 ML VIAL IVP PRN (19:58)
[2016-08-15] MEDS: HYDROmorphone 1 MG/ML 1 ML SYRINGE IVP PRN (01:31)
[2016-08-15] MEDS: METOCLOPRAMIDE 5 MG/ML 2 ML VIAL IVP SCH ×2 (05:02→11:22)
[2016-08-15] MEDS: NACL IV SCH ×4 (05:14→06:24)
[2016-08-15] MEDS: POTASSIUM CHLORIDE IV SCH ×4 (05:14→06:24)
[2016-08-15] MEDS: DEXTROSE IV SCH ×4 (05:14→06:24)
[2016-08-15 07:06] LABS: Basophils # (A) 0.1 k/uL (0-0.2); Basophils % (A) 1 %; CH 26.9; CHCM 32.8; Eosinophils # (A) 0.4 k/uL (0-0.7); Eosinophils % (A) 6 %; HCT 40.3 % (39.0-53.0); HDW 3.05; HGB 12.9 gm/dL (13.0-17.5); Luc # (Auto) 0.13; Luc % (Auto) 2; Lymphocytes # (A) 1.5 k/uL (1.0-4.8); Lymphocytes % (A) 23 %; MCH 26.4 pg (25.0-35.0); MCV 82.5 fL (80.0-100.0); Mean Platelet Volume 6.8; Monocytes # (A) 0.3 k/uL (0-1.0); Monocytes % (A) 5 %; Neutrophils # (A) 4.1 k/uL (1.3-7.7); Neutrophils % (A) 64 %; RBC 4.89 m/uL (4.30-5.90); RDW 14.2 % (11.5-15.5); WBC 6.4 k/uL (3.8-10.6)
[2016-08-15 07:18] VITALS: BP 142/87; TEMP 97.6
[2016-08-15 07:21] LABS: Anion Gap 12 mmol/L; Blood Urea Nitrogen 11 mg/dL (9-20); Calcium 8.9 mg/dL (8.4-10.2); Carbon Dioxide 27 mmol/L (22-30); Chloride 103 mmol/L (98-107); Glucose 101 mg/dL (74-99); Non-African American GFR(MDRD) >60 (>60 ml/min/1.73 sqM); Potassium 4.6 mmol/L (3.5-5.1); Sodium 142 mmol/L (137-145)
[2016-08-15] MEDS: PANTOPRAZOLE 40 MG/10 ML VIAL IV SCH (09:44)
[2016-08-15] MEDS: HEPARIN SODIUM,PORCINE 5,000 UNIT/ML 1 ML VIAL SQ SCH (09:44)
[2016-08-15] MEDS: BACITRACIN 500 UNIT/GM OINT 28.4 GM TUBE TOPICAL SCH (09:44)
[2016-08-15] MEDS: PIPERACILLIN-TAZOBACTAM 3.375 GM in DEXTROSE/WATER 1 50ML.BAG IVPB SCH (09:45)
[2016-08-15 11:43] VITALS: PULSE 78
[2016-08-15] MEDS ORDERED: traMADol 50 MG TAB PO PRN (11:58)
--- NOTE | 2016-08-15 17:29 | P.DS ---
Providers Date of admission: 08/10/16 08:42 Expected date of discharge: 08/15/16 Attending physician: Sukumar Woods Primary care physician: Rodrigue Razo - Discharge Diagnosis(es) (1) Incarcerated incisional hernia Patient was admitted through the emergency department with abdominal pain. He had a history consistent with bowel obstruction. He was taken to the operative room after a CAT scan showed a incarcerated incisional hernia. The patient's found have mostly omental fat present within the hernia however the small bowel beneath the fascia was being twisted in such a fashion as to created partial obstruction. He underwent operative repair. He has done fairly well postop. His diet has been gradually advancing. He is now tolerating his diet. He is passing flatus. Pain is well-controlled. SWETHA drain is draining serosanguineous fluid. Plan is for the patient be discharged home today. Patient follow up me in the office in one week. Current Visit: Yes Status: Acute Patient Condition at Discharge: Stable Plan - Discharge Summary New Discharge Prescriptions: traMADol HCl [Ultram] 50 mg PO Q6H PRN #40 tab PRN Reason: Pain Discharge Medication List Hydrochlorothiazide [Hydrodiuril] 25 mg PO DAILY 12/08/13 [History] ALPRAZolam [ALPRAZolam] 0.25 mg PO TID PRN 07/17/14 [History] Ondansetron Odt [Zofran ODT] 4 mg PO Q4H PRN 07/17/14 [History] Prochlorperazine [Compazine] 10 mg PO Q6H PRN 08/10/16 [History] traMADol HCl [Ultram] 50 mg PO Q6H PRN #40 tab 08/15/16 [Rx] Follow up Appointment(s)/Referral(s): Rodrigue Razo MD [Primary Care Provider] - 1-2 days Sukumar Woods MD [Medical Doctor] - 08/20/16
== END 2016-08-15 19:26 | disposition home or self-care (01) | DRG 355 ==
LOC: EC 18:14 → 3OBS 08-10 00:26 → OBSVTOIN 08-10 08:42 → 3SUR 08-10 10:04
PROVIDERS: ADMIT Surgery; ATTEND Surgery
PROC: 0JN80ZZ Release Abdomen Subcutaneous Tissue and Fascia, Open Approach (ICD-10-PCS; principal; 2016-08-10)
PROC: 0DBS0ZZ (ICD-10-PCS; principal; 2016-08-10)
PROC: 0WUF0JZ Supplement Abdominal Wall with Synthetic Substitute, Open Approach (ICD-10-PCS; principal; 2016-08-10)
DX: K43.0 Incisional hernia with obstruction, without gangrene (principal); I11.9 Hypertensive heart disease without heart failure; K66.0 Peritoneal adhesions (postprocedural) (postinfection); F41.9 Anxiety disorder, unspecified; E78.5 Hyperlipidemia, unspecified; E66.9 Obesity, unspecified; Z68.29 Body mass index [BMI] 29.0-29.9, adult; Z79.899 Other long term (current) drug therapy; Z85.038 Personal history of other malignant neoplasm of large intestine; Z92.21 Personal history of antineoplastic chemotherapy; Z87.442 Personal history of urinary calculi; Z80.8 Family history of malignant neoplasm of other organs or systems; Z90.49 Acquired absence of other specified parts of digestive tract; Z88.5 Allergy status to narcotic agent; Z98.890 Other specified postprocedural states
CPT/HCPCS: 36415; 74020; 74177; 76705; 80048; 80053; 81003; 82150; 83605; 83690; 85025; 87086; 88302; 88305; 96361; 96374; 96375; 96376; 99285

== ENCOUNTER → 2016-09-18 | Outpatient (CLI) | payer OTHER ==
[2016-09-18 09:47] LABS: CH 27.5; CHCM 34.8; HCT 40.1 % (39.0-53.0); HDW 3.43; HGB 14.1 gm/dL (13.0-17.5); MCH 27.8 pg (25.0-35.0); MCHC 35.1 g/dL (31.0-37.0); MCV 79.2 fL (80.0-100.0); Mean Platelet Volume 7.9; Poikilocytosis Slight; RBC 5.07 m/uL (4.30-5.90); RDW 14.2 % (11.5-15.5); WBC 7.9 k/uL (3.8-10.6)
[2016-09-18 13:14] LABS: ALT 50 U/L (21-72); AST 39 U/L (17-59); Alkaline Phosphatase 88 U/L (38-126); Anion Gap 11 mmol/L; Blood Urea Nitrogen 12 mg/dL (9-20); Carbon Dioxide 26 mmol/L (22-30); Chloride 106 mmol/L (98-107); Cholesterol 177 mg/dL (<200); Glucose 98 mg/dL (74-99); HDL Cholesterol 26 mg/dL (40-60); Non-African American GFR(MDRD) >60 (>60 ml/min/1.73 sqM); Potassium 4.4 mmol/L (3.5-5.1); Sodium 143 mmol/L (137-145); Total Bilirubin 0.6 mg/dL (0.2-1.3); Total Protein 7.6 g/dL (6.3-8.2); Triglycerides 392 mg/dL (<150)
[2016-09-18 13:15] LABS: Prostate Specific Antigen 0.69 ng/mL (0.00-4.00)
== END | disposition home or self-care (01) ==
LOC: LABWHC1 09:14
PROVIDERS: ATTEND Internal Medicine
DX: E87.8 Other disorders of electrolyte and fluid balance, not elsewhere classified (principal); R53.83 Other fatigue; E87.4 Mixed disorder of acid-base balance; N40.0 Benign prostatic hyperplasia without lower urinary tract symptoms
CPT/HCPCS: 36415; 80053; 80061; 82378; 84153; 85027

== ENCOUNTER → 2016-10-22 | Outpatient (CLI) | payer OTHER ==
--- NOTE | 2016-10-22 12:18 | CT ---
EXAMINATION TYPE: CT ChestAbdPelvis w con DATE OF EXAM: 10/22/2016 11:46 AM COMPARISON: CT abdomen and pelvis August 09, 2016. HISTORY: Colon CA CT DLP: 2739.9 mGycm. Automated Exposure Control for Dose Reduction was Utilized. CONTRAST: CT scan of the thorax, abdomen and pelvis is performed with IV Contrast, patient injected with 100 mL of Omnipaque 300. FINDINGS: LUNGS: The lungs are grossly clear, there is no concerning parenchymal mass or nodule identified. T here is no pleural effusion or pneumothorax seen. The tracheobronchial tree is patent. MEDIASTINUM: There are no greater than 1 cm hilar or mediastinal lymph nodes. No cardiomegaly or pe ricardial effusion is seen. OTHER: No additional significant abnormality is seen. LIVER/GB: Liver remains low dense suggesting diffuse fatty infiltration. PANCREAS: No significant abnormality is seen. SPLEEN: No significant abnormality is seen. ADRENALS: No significant abnormality is seen. KIDNEYS: No significant abnormality is seen. BOWEL: Oral contrast reaches level of the cecum. There is no suspicious small or large bowel dilatati on. GENITAL ORGANS: Central zone calcifications are seen in normal size prostate gland. LYMPH NODES: No greater than 1cm abdominal or pelvic lymph nodes are appreciated. There are subcentim eter prominent right lower quadrant mesenteric lymph nodes. OSSEOUS STRUCTURES: Multilevel spurring in the thoracolumbar spine is present. OTHER: Linear density over anterior abdominal wall is suspected product of prior ventral wall hernia repair surgery in interval since prior. Vertical scarring is present. IMPRESSION: No suspicious mass or adenopathy is seen to suggest metastatic malignancy.
== END | disposition home or self-care (01) ==
LOC: RADCTMAIN 09:47
PROVIDERS: ATTEND Internal Medicine Hematology & Oncology
DX: C18.9 Malignant neoplasm of colon, unspecified (principal)
CPT/HCPCS: 71260; 74177; Q9967

== ENCOUNTER → 2017-01-02 | Outpatient (CLI) | payer OTHER ==
[2017-01-02 10:32] LABS: ALT 77 U/L (21-72); AST 45 U/L (17-59); Alkaline Phosphatase 81 U/L (38-126); Anion Gap 12 mmol/L; Blood Urea Nitrogen 14 mg/dL (9-20); Calcium 9.4 mg/dL (8.4-10.2); Carbon Dioxide 26 mmol/L (22-30); Chloride 102 mmol/L (98-107); Glucose 90 mg/dL (74-99); Non-African American GFR(MDRD) >60 (>60 ml/min/1.73 sqM); Potassium 4.7 mmol/L (3.5-5.1); Sodium 140 mmol/L (137-145); Total Bilirubin 0.5 mg/dL (0.2-1.3); Total Protein 7.4 g/dL (6.3-8.2); Uric Acid 7.4 mg/dL (3.5-8.5)
[2017-01-02 11:52] LABS: Hepatitis C Virus IgG Ab Negative (Negative); Hepatitis C Virus IgG Index 0.05
[2017-01-02 12:31] LABS: Mis test result (Blood) Not Indicated
[2017-01-02 12:32] LABS: Mis test requested (Blood) Hep C Reflex Testing
== END | disposition home or self-care (01) ==
LOC: LABWHC1 08:13
PROVIDERS: ATTEND Internal Medicine
DX: D64.9 Anemia, unspecified (principal); E87.8 Other disorders of electrolyte and fluid balance, not elsewhere classified
CPT/HCPCS: 36415; 80053; 84550; 86803

== ENCOUNTER → 2017-04-04 | Outpatient (CLI) | payer OTHER ==
[2017-04-04 09:49] LABS: ALT 110 U/L (21-72); AST 88 U/L (17-59); Alkaline Phosphatase 88 U/L (38-126); Anion Gap 11 mmol/L; Blood Urea Nitrogen 18 mg/dL (9-20); Calcium 9.5 mg/dL (8.4-10.2); Carbon Dioxide 28 mmol/L (22-30); Chloride 103 mmol/L (98-107); Cholesterol 223 mg/dL (<200); Glucose 101 mg/dL (74-99); HDL Cholesterol 39 mg/dL (40-60); Non-African American GFR(MDRD) >60 (>60 ml/min/1.73 sqM); Potassium 4.4 mmol/L (3.5-5.1); Sodium 142 mmol/L (137-145); Total Bilirubin 0.6 mg/dL (0.2-1.3); Total Protein 7.8 g/dL (6.3-8.2)
== END | disposition home or self-care (01) ==
LOC: LABWHC1 08:58
PROVIDERS: ATTEND Internal Medicine
DX: Z13.220 Encounter for screening for lipoid disorders (principal); Z13.9 Encounter for screening, unspecified
CPT/HCPCS: 36415; 80053; 80061

== ENCOUNTER → 2017-10-09 | Outpatient (CLI) | payer BC ==
[2017-10-09 09:27] LABS: HCT 43.8 % (39.0-53.0); HGB 14.4 gm/dL (13.0-17.5); MCHC 32.8 g/dL (31.0-37.0); MCV 79.1 fL (80.0-100.0); Mean Platelet Volume 7.6; Platelet Count 213 k/uL (150-450); RBC 5.54 m/uL (4.30-5.90); RDW 14.3 % (11.5-15.5); WBC 7.3 k/uL (3.8-10.6)
[2017-10-09 11:15] LABS: ALT 49 U/L (21-72); AST 33 U/L (17-59); Albumin 4.1 g/dL (3.5-5.0); Alkaline Phosphatase 84 U/L (38-126); Anion Gap 13 mmol/L; Blood Urea Nitrogen 14 mg/dL (9-20); Calcium 9.5 mg/dL (8.4-10.2); Carbon Dioxide 29 mmol/L (22-30); Chloride 102 mmol/L (98-107); Cholesterol 179 mg/dL (<200); Glucose 94 mg/dL (74-99); HDL Cholesterol 31 mg/dL (40-60); LDL Cholesterol,Calculated 96 mg/dL (0-99); Potassium 5.1 mmol/L (3.5-5.1); Sodium 144 mmol/L (137-145); Total Bilirubin 0.5 mg/dL (0.2-1.3); Total Protein 7.7 g/dL (6.3-8.2); Triglycerides 262 mg/dL (<150)
[2017-10-09 11:42] LABS: Prostate Specific Antigen 0.87 ng/mL (0.00-4.00)
== END | disposition home or self-care (01) ==
LOC: LABWHC1 08:35
PROVIDERS: ATTEND Internal Medicine
DX: E78.4 Other hyperlipidemia (principal); E87.8 Other disorders of electrolyte and fluid balance, not elsewhere classified; N40.0 Benign prostatic hyperplasia without lower urinary tract symptoms; R53.83 Other fatigue; Z12.5 Encounter for screening for malignant neoplasm of prostate
CPT/HCPCS: 36415; 80053; 80061; 84153; 85027

== ENCOUNTER 2018-01-08 11:32 | Day surgery (SDC) | payer BC ==
[2018-01-05 13:24] VITALS: BMI 35.2
[~2018-01-08 11:32] MED LIST: LACTATED RINGERS 1,000 ML IV SCH
[2018-01-08] MEDS ORDERED: LIDOCAINE 1% 20 ML VIAL (10MG/ML) FOR IV START INTRADERMA ONE (12:17)
[2018-01-08 12:22] VITALS: TEMP 97.8
[2018-01-08] MEDS ORDERED: KETAMINE 10 MG/ML 20 ML VIAL ONE (12:32)
[2018-01-08] MEDS ORDERED: PROPOFOL 10 MG/ML 20 ML VIAL IV ONE (12:32)
--- NOTE | 2018-01-08 12:35 | P.GSHP ---
History of Present Illness H&P Date: 01/08/18 Chief Complaint: Colon cancer screening Patient here today for colonoscopy. Last colonoscopy 3-1/2 years ago. Patient has a personal history of colon cancer involving the descending colon. He is asymptomatic at this time. Past Medical History Past Medical History: Cancer, GERD/Reflux, Hypertension Additional Past Medical History / Comment(s): HX COLON Cancer, gout, History of Any Multi-Drug Resistant Organisms: None Reported Past Surgical History: Appendectomy, Bowel Resection Additional Past Surgical History / Comment(s): PORT A CATH/later removed Past Anesthesia/Blood Transfusion Reactions: No Reported Reaction Smoking Status: Never smoker - Past Family History Father History Unknown: Yes Mother History Unknown: Yes Sister(s) Family Medical History: Cancer Additional Family Medical History / Comment(s): TONGUE Medications and Allergies Home Medications Medication Instructions Recorded Confirmed Type Hydrochlorothiazide [Hydrodiuril] 25 mg PO DAILY 12/08/13 01/08/18 History ALPRAZolam 0.25 mg PO TID PRN 07/17/14 01/08/18 History traMADol HCl [Ultram] 50 mg PO Q6H PRN #40 tab 08/15/16 01/08/18 Rx Lisinopril [Zestril] 5 mg PO DAILY 01/05/18 01/08/18 History Allergies Allergy/AdvReac Type Severity Reaction Status Date / Time hydrocodone [From [place]] AdvReac constipatio Verified 01/08/18 12:11 n Surgical - Exam Vital Signs Temp Pulse Resp BP Pulse Ox 97.8 F 83 16 145/97 97 01/08/18 12:20 01/08/18 12:20 01/08/18 12:20 01/08/18 12:20 01/08/18 12:20 Physical exam: General: Well-developed, well-nourished HEENT: Normocephalic, sclerae nonicteric Abdomen: Nontender, nondistended Extremities: No edema Neuro: Alert and oriented Assessment and Plan (1) Colon cancer screening Narrative/Plan: Will proceed with colonoscopy at this time. Current Visit: Yes Status: Acute Code(s): Z12.11 - ENCOUNTER FOR SCREENING FOR MALIGNANT NEOPLASM OF COLON SNOMED Code(s): 237429821
--- NOTE | 2018-01-08 12:58 | P.PCN ---
Date of Procedure: 01/08/18 Procedure(s) Performed: PREOPERATIVE DIAGNOSIS: Colon cancer screening POSTOPERATIVE DIAGNOSIS: Sigmoid colon polyp, ascending colon polyp PROCEDURE: Colonoscopy with snare polypectomy ANESTHESIA: MAC SURGEON: Sukumar Woods M.D. SPECIMENS: Polyps ENDOSCOPIC PROCEDURE: The patient was placed on the endoscopy table in the left decubitus position. The Olympus colonoscope was inserted into the anus and passed under direct visualization to the base of the cecum. The appendiceal orifice was visualized. From that point the scope was slowly withdrawn inspecting all surfaces carefully. There were no neoplastic inflammatory or polypoid lesions throughout the cecum. In the ascending colon a small polyp was removed using the snare with cautery technique. The remainder of the ascending transverse and descending colon appeared normal. The anastomosis appeared widely patent at a proximally 40 cm. At 18 cm a 1-1.5 cm pedunculated polyp was identified and removed using the snare with cautery technique. The remainder of the sigmoid and rectum appeared normal. There was no visible diverticulosis. Digital rectal examination was normal. The patient was taken to the recovery room in stable condition per anesthesia guidelines. RECOMMENDATIONS: Await biopsy results. Recommend follow-up colonoscopy 3 years.
[2018-01-08 13:04] VITALS: RESP 18
[2018-01-08 13:22] VITALS: BP 139/87; PULSE 80
== END 2018-01-08 13:40 | disposition home or self-care (01) ==
LOC: ORWHC2ENDO 11:32
PROVIDERS: ATTEND Surgery
DX: Z12.11 Encounter for screening for malignant neoplasm of colon (principal); D12.5 Benign neoplasm of sigmoid colon; K63.5 Polyp of colon; I10 Essential (primary) hypertension; K21.9 Gastro-esophageal reflux disease without esophagitis; F39 Unspecified mood [affective] disorder; Z88.5 Allergy status to narcotic agent; Z79.899 Other long term (current) drug therapy; Z85.038 Personal history of other malignant neoplasm of large intestine; Z90.49 Acquired absence of other specified parts of digestive tract; Z98.0 Intestinal bypass and anastomosis status; Z80.8 Family history of malignant neoplasm of other organs or systems
CPT/HCPCS: 45385; 88305; J2704

== ENCOUNTER → 2018-04-05 | Outpatient (CLI) | payer BC ==
[2018-04-05 10:16] LABS: ALT 158 U/L (21-72); AST 119 U/L (17-59); Albumin 4.3 g/dL (3.5-5.0); Alkaline Phosphatase 78 U/L (38-126); Anion Gap 10 mmol/L; Blood Urea Nitrogen 17 mg/dL (9-20); Carbon Dioxide 26 mmol/L (22-30); Chloride 102 mmol/L (98-107); Cholesterol 213 mg/dL (<200); Glucose 99 mg/dL (74-99); HDL Cholesterol 33 mg/dL (40-60); LDL Cholesterol,Calculated 139 mg/dL (0-99); Potassium 4.4 mmol/L (3.5-5.1); Sodium 138 mmol/L (137-145); Total Bilirubin 0.4 mg/dL (0.2-1.3); Total Protein 7.7 g/dL (6.3-8.2); Triglycerides 203 mg/dL (<150)
[2018-04-05 10:23] LABS: HCT 45.7 % (39.0-53.0); HGB 14.8 gm/dL (13.0-17.5); MCH 26.1 pg (25.0-35.0); MCHC 32.4 g/dL (31.0-37.0); MCV 80.5 fL (80.0-100.0); Mean Platelet Volume 7.6; Platelet Count 192 k/uL (150-450); RBC 5.68 m/uL (4.30-5.90); RDW 14.6 % (11.5-15.5); WBC 5.4 k/uL (3.8-10.6)
== END | disposition home or self-care (01) ==
LOC: LABWHC1 08:56
PROVIDERS: ATTEND Internal Medicine
DX: C18.9 Malignant neoplasm of colon, unspecified (principal); E87.8 Other disorders of electrolyte and fluid balance, not elsewhere classified; E78.4 Other hyperlipidemia
CPT/HCPCS: 36415; 80053; 80061; 85027

== ENCOUNTER → 2018-10-16 | Outpatient (CLI) | payer BC ==
[2018-10-16 09:41] LABS: HCT 42.3 % (39.0-53.0); HGB 14.5 gm/dL (13.0-17.5); MCH 26.6 pg (25.0-35.0); MCHC 34.2 g/dL (31.0-37.0); MCV 77.8 fL (80.0-100.0); Mean Platelet Volume 7.7; Platelet Count 199 k/uL (150-450); RBC 5.44 m/uL (4.30-5.90); WBC 6.6 k/uL (3.8-10.6)
[2018-10-16 16:58] LABS: Albumin 4.4 g/dL (3.80-4.90); Albumin/Globulin Ratio 1.83 (1.60-3.17); Anion Gap 10.2 mmol/L (4.00-12.00); Calcium 9.4 mg/dL (8.7-10.3); Carbon Dioxide 25.8 mmol/L (21.6-31.8); Globulin 2.4 g/dL (1.6-3.3); Potassium 4.3 mmol/L (3.5-5.5); Total Bilirubin 0.5 mg/dL (0.2-1.2); Total Protein 6.8 g/dL (6.2-8.2)
== END | disposition home or self-care (01) ==
LOC: LABWHC1 09:09
PROVIDERS: ATTEND Internal Medicine
DX: E87.8 Other disorders of electrolyte and fluid balance, not elsewhere classified (principal); R53.83 Other fatigue; C18.9 Malignant neoplasm of colon, unspecified; E78.41 Elevated Lipoprotein(a); N40.0 Benign prostatic hyperplasia without lower urinary tract symptoms
CPT/HCPCS: 36415; 80053; 80061; 82378; 84153; 85027

== ENCOUNTER 2018-10-29 20:39 | Emergency (ER) | payer BC ==
[2018-10-29 20:46] VITALS: BP 138/89; PULSE 102; RESP 18; TEMP 97.5
[2018-10-29] MEDS ORDERED: LIDOCAINE 1% INJ 10MG/ML (20 ML MDV) SQ ONE (20:59)
[2018-10-29] MEDS ORDERED: AMOXIC-POT CLAV 875MG STARTER 2 EACH TABLET PO STA (20:59)
[2018-10-29] MEDS ORDERED: DIPH,PERTUS(ACELL)TETVAC-LF 0.5 ML VIAL IM ONE (20:59)
--- NOTE | 2018-10-29 21:16 | ED ---
Animal Bite HPI - General Chief Complaint: Animal Bite Stated Complaint: Dog Bite to face Time Seen by Provider: 10/29/18 20:47 Source: patient, family Mode of arrival: ambulatory Limitations: no limitations - History of Present Illness Initial Comments: 57-year-old male presenting today for chief complaint of right upper lip laceration. Patient states she was bit by his 12 pound dog in the face. Patient has a small skin tear of the lower right side of the lip, but complains of laceration of the upper lip. Denies through and through injury. Patient denies any falls head injury or other areas of biting or scratching. Patient is unsure of his last tetanus. Patient denies any antibiotic ALLERGIES. Patient states that the dog's vaccinations are up-to-date. Denies any abnormal behaviors. Remaining review of systems negative. - Related Data Home Medications Medication Instructions Recorded Confirmed Hydrochlorothiazide [Hydrodiuril] 25 mg PO DAILY 12/08/13 01/08/18 Lisinopril [Zestril] 5 mg PO DAILY 01/05/18 01/08/18 Allergies Allergy/AdvReac Type Severity Reaction Status Date / Time hydrocodone [From [place]] AdvReac constipatio Verified 10/29/18 21:15 n Review of Systems ROS Statement: Those systems with pertinent positive or pertinent negative responses have been documented in the HPI. ROS Other: All systems not noted in ROS Statement are negative. Past Medical History Past Medical History: Cancer, GERD/Reflux, Hypertension Additional Past Medical History / Comment(s): HX COLON Cancer, gout, History of Any Multi-Drug Resistant Organisms: None Reported Past Surgical History: Appendectomy, Bowel Resection, Hernia Repair Additional Past Surgical History / Comment(s): PORT A CATH/later removed Past Anesthesia/Blood Transfusion Reactions: No Reported Reaction Past Psychological History: No Psychological Hx Reported Smoking Status: Never smoker Past Alcohol Use History: None Reported Past Drug Use History: None Reported - Past Family History Father History Unknown: Yes Mother History Unknown: Yes Sister(s) Family Medical History: Cancer Additional Family Medical History / Comment(s): TONGUE General Exam - General Exam Comments Initial Comments: General: The patient is awake and alert, in no distress, and does not appear acutely ill. Eye: Pupils are equal, round and reactive to light, extra-ocular movements are intact. No nystagmus. There is normal conjunctiva bilaterally. No signs of icterus. Ears, nose, mouth and throat: There are moist mucous membranes and no oral lesions. Cardiovascular: There is a regular rate and rhythm. No murmur, rub or gallop is appreciated. Respiratory: Lungs are clear to auscultation, respirations are non-labored, breath sounds are equal. No wheezes, stridor, rales, or rhonchi. Musculoskeletal: Normal ROM, no tenderness. Strength 5/5. Sensation intact. Pulses equal bilaterally 2+. Neurological: A&O x 3. CN II-XII intact, There are no obvious motor or sensory deficits. Coordination appears grossly intact. Speech is normal. Skin: Skin is warm and dry and no rashes. 1cm laceration involving slightly the butch border of the right upper lip, no through and through injury. Small abrasion/skin tear of the right lower lip ~2cm. Psychiatric: Cooperative, appropriate mood & affect, normal judgment. Limitations: no limitations Course Vital Signs 10/29/18 20:42 Temperature 97.5 F L Pulse Rate 102 H Respiratory 18 Rate Blood Pressure 138/89 O2 Sat by Pulse 95 Oximetry Procedures - Laceration Laceration #1 Consent Obtained: verbal consent Indication: laceration Site: face, lip Size (cm): 1 Description: linear, involves butch border Depth: simple, single layer Anesthetic Used: lidocaine 1% Anesthesia Technique: local infiltration Amount (mls): 1 Pre-repair: wound explored, irrigated extensively, deep structures intact Type of Sutures: nylon Size of Sutures: 6-0 Number of Sutures: 3 Technique: simple, interrupted Patient Tolerated Procedure: well, no complications Medical Decision Making - Medical Decision Making 57-year-old male presenting for an oblique to face. Given facial involvement involvement of the vermilion border decision was made to close wound. Wound edges were approximated using 3 6. 0 nylon sutures. Wound edges approximate well and vermilion border was aligned. No through and through injury. Patient is small superficial skin tear of the right lower lip. There is ecchymosis and mild soft tissue swelling of the upper and lower portion of the right side of lips. Patient tetanus is updated. Patient was educated on the importance of antibiotic compliance, sinus symptoms of infection and return parameters. I instructed patient to return in 4 days given facial laceration near mucous membranes--healing anticipated to be rapid. Patient is agreeable with all care plan instruction as well as discharge. All questions were answered to the best my ability. Patient is discharged appeared well after discussed the case with him provider Dr. Lopez Disposition Clinical Impression: Dog bite, Facial laceration Disposition: HOME SELF-CARE Condition: Good Instructions (If sedation given, give patient instructions): Animal Bite (ED), Care For Your Stitches (ED) Additional Instructions: Please use oral and topical medication as discussed. Please follow-up in 4 days for suture removal, here in the ER. Please return to emergency room if the symptoms increase or worsen or for any other concerns, drainage, redness, fever. Is patient prescribed a controlled substance at d/c from ED?: No Referrals: Rodrigue Razo MD [Primary Care Provider] - 1-2 days Time of Disposition: 21:15
== END 2018-10-29 21:44 | disposition home or self-care (01) ==
LOC: EC 20:39
DX: S01.511A Laceration without foreign body of lip, initial encounter (principal); S00.531A Contusion of lip, initial encounter; I10 Essential (primary) hypertension; Z88.5 Allergy status to narcotic agent; Z79.899 Other long term (current) drug therapy; Z85.038 Personal history of other malignant neoplasm of large intestine; Z90.49 Acquired absence of other specified parts of digestive tract; Z23 Encounter for immunization; W54.0XXA Bitten by dog, initial encounter
CPT/HCPCS: 90715; 99283; 90471; 12011; J2001

== ENCOUNTER → 2019-04-23 | Outpatient (CLI) | payer BC ==
[2019-04-23 09:11] LABS: Basophils # (A) 0.1 k/uL (0-0.2); Basophils % (A) 1 %; Eosinophils # (A) 0.2 k/uL (0-0.7); Eosinophils % (A) 3 %; HCT 43.8 % (39.0-53.0); HGB 14.7 gm/dL (13.0-17.5); Lymphocytes # (A) 1.7 k/uL (1.0-4.8); Lymphocytes % (A) 24 %; MCH 27.2 pg (25.0-35.0); MCHC 33.5 g/dL (31.0-37.0); MCV 81.2 fL (80.0-100.0); Mean Platelet Volume 6.5; Monocytes # (A) 0.4 k/uL (0-1.0); Monocytes % (A) 5 %; Neutrophils # (A) 4.9 k/uL (1.3-7.7); Neutrophils % (A) 66 %; Platelet Count 217 k/uL (150-450); RDW 13.8 % (11.5-15.5); WBC 7.4 k/uL (3.8-10.6)
[2019-04-23 16:45] LABS: African American GFR (CKD) 110.3 (60.0-200.0); Albumin 4.4 g/dL (3.80-4.90); Albumin/Globulin Ratio 1.76 (1.60-3.17); Anion Gap 6.2 mmol/L (4.00-12.00); BUN/Creat Ratio 18.89 Ratio (12.00-20.00); Calcium 9.4 mg/dL (8.7-10.3); Carbon Dioxide 28.8 mmol/L (21.6-31.8); Globulin 2.5 g/dL (1.6-3.3); LDL Cholesterol,Calculated 107.4 mg/dL (0.0-131.0); Potassium 4.4 mmol/L (3.5-5.5); Total Bilirubin 0.4 mg/dL (0.2-1.2); Total Protein 6.9 g/dL (6.2-8.2); Uric Acid 8.6 mg/dL (3.7-8.7); VLDL Calculation 56.6 mg/dL (5.00-40.00)
== END | disposition home or self-care (01) ==
LOC: LABWHC1 08:36
PROVIDERS: ATTEND Nurse Practitioner Family
DX: I10 Essential (primary) hypertension (principal); E78.5 Hyperlipidemia, unspecified; E87.8 Other disorders of electrolyte and fluid balance, not elsewhere classified; D64.9 Anemia, unspecified; M10.9 Gout, unspecified; R79.9 Abnormal finding of blood chemistry, unspecified
CPT/HCPCS: 36415; 80053; 80061; 82306; 84443; 84550; 85025

== ENCOUNTER → 2019-08-06 | Outpatient (CLI) | payer BC ==
[2019-08-06 09:21] LABS: Basophils # (A) 0.1 k/uL (0-0.2); Basophils % (A) 1 %; Eosinophils # (A) 0.2 k/uL (0-0.7); Eosinophils % (A) 2 %; HCT 45.4 % (39.0-53.0); HGB 14.8 gm/dL (13.0-17.5); Lymphocytes # (A) 1.9 k/uL (1.0-4.8); Lymphocytes % (A) 24 %; MCH 26.2 pg (25.0-35.0); MCHC 32.5 g/dL (31.0-37.0); MCV 80.4 fL (80.0-100.0); Mean Platelet Volume 7.6; Monocytes # (A) 0.4 k/uL (0-1.0); Monocytes % (A) 5 %; Neutrophils # (A) 5.3 k/uL (1.3-7.7); Neutrophils % (A) 66 %; Platelet Count 225 k/uL (150-450); RBC 5.65 m/uL (4.30-5.90); RDW 13.9 % (11.5-15.5)
[2019-08-06 16:51] LABS: African American GFR (CKD) 97.1 (60.0-200.0); Albumin 4.6 g/dL (3.80-4.90); Albumin/Globulin Ratio 1.92 (1.60-3.17); Anion Gap 8.3 mmol/L (4.00-12.00); Calcium 9.4 mg/dL (8.7-10.3); Carbon Dioxide 27.7 mmol/L (21.6-31.8); Chol/HDL Ratio 5.15; Globulin 2.4 g/dL (1.6-3.3); LDL Cholesterol,Calculated 129.4 mg/dL (0.0-131.0); Non-African American GFR(CKD) 83.8 (60.0-200.0); Potassium 4.6 mmol/L (3.5-5.5); Total Bilirubin 0.6 mg/dL (0.2-1.2); VLDL Calculation 40.6 mg/dL (5.00-40.00)
== END | disposition home or self-care (01) ==
LOC: LABWHC1 08:31
PROVIDERS: ATTEND Nurse Practitioner Family
DX: I10 Essential (primary) hypertension (principal); R53.83 Other fatigue; R35.0 Frequency of micturition; D64.9 Anemia, unspecified; R79.9 Abnormal finding of blood chemistry, unspecified; E78.49 Other hyperlipidemia
CPT/HCPCS: 36415; 80053; 80061; 84153; 85025

== ENCOUNTER 2020-04-02 02:56 | Emergency (ER) | payer BC ==
[2020-04-02] MEDS ORDERED: SODIUM CHLORIDE 0.9% 1,000 ML IV STA (02:58)
[2020-04-02 03:30] LABS: Appearance,Urine Clear (Clear); Bilirubin,Urine Negative (Negative); Blood,Urine Negative (Negative); Color,Urine Light Yellow; Glucose,Urine (UA) Negative (Negative); Ketones,Urine Negative (Negative); Leukocyte Esterase,Urine Negative (Negative); Nitrite,Urine Negative (Negative); Protein,Urine Negative (Negative); Urobilinogen,Urine <2.0 mg/dL (<2.0)
[2020-04-02 03:32] LABS: Basophils # (A) 0.1 k/uL (0-0.2); Basophils % (A) 0 %; Eosinophils # (A) 0.2 k/uL (0-0.7); Eosinophils % (A) 2 %; HCT 43.3 % (39.0-53.0); HGB 14.5 gm/dL (13.0-17.5); Lymphocytes # (A) 1.3 k/uL (1.0-4.8); Lymphocytes % (A) 11 %; MCH 26.7 pg (25.0-35.0); MCHC 33.4 g/dL (31.0-37.0); Mean Platelet Volume 7.3; Monocytes # (A) 0.4 k/uL (0-1.0); Monocytes % (A) 3 %; Neutrophils # (A) 9.9 k/uL (1.3-7.7); Neutrophils % (A) 83 %; Platelet Count 209 k/uL (150-450); RBC 5.41 m/uL (4.30-5.90); RDW 14.2 % (11.5-15.5); WBC 11.9 k/uL (3.8-10.6)
--- NOTE | 2020-04-02 03:33 | XR ---
EXAMINATION TYPE: XR KUB DATE OF EXAM: 04/02/2020 COMPARISON: 08/09/2016 HISTORY: Abdominal pain TECHNIQUE: 3 views upright FINDINGS: There is no sign of intestinal obstruction or pneumoperitoneum. Fecal pattern is normal. Portia ng bases are clear. There are no pathologic calcifications. IMPRESSION: Nonacute abdomen. There is clearing of the small bowel fluid levels in dilated small shnaa l compared to old exam.
[2020-04-02 03:40] LABS: ALT 27 U/L (4-49); AST 32 U/L (17-59); African American GFR (CKD) >90 (>60 ml/min/1.73 sqM); Albumin 4.4 g/dL (3.5-5.0); Alkaline Phosphatase 81 U/L (38-126); Anion Gap 10 mmol/L; Blood Urea Nitrogen 12 mg/dL (9-20); Calcium 9.2 mg/dL (8.4-10.2); Carbon Dioxide 26 mmol/L (22-30); Chloride 100 mmol/L (98-107); Glucose 143 mg/dL (74-99); Non-African American GFR(CKD) >90 (>60 ml/min/1.73 sqM); Potassium 4.2 mmol/L (3.5-5.1); Sodium 136 mmol/L (137-145); Total Bilirubin 0.5 mg/dL (0.2-1.3); Total Protein 7.5 g/dL (6.3-8.2)
[2020-04-02] MEDS ORDERED: MORPHINE SULFATE 4 MG/ML SYRINGE IVP STA (03:47)
[2020-04-02] MEDS ORDERED: ONDANSETRON 4 MG/2 ML VIAL IVP STA (03:47)
--- NOTE | 2020-04-02 03:50 | ED ---
Abdominal Pain HPI - General Chief Complaint: Abdominal Pain Stated Complaint: poss kidney stone Time Seen by Provider: 04/02/20 02:58 Source: patient Mode of arrival: ambulatory Limitations: no limitations - History of Present Illness Initial Comments: Parker is a 59-year-old male with extensive past medical history most significant for: Cancer and history of diverticulitis. Patient presents the ER today for evaluation of right lower quadrant abdominal pain that began suddenly around 8:30 PM. Patient reports he took one of his Xanax which didn't help at all with the pain. Pain persisted throughout the night became unbearable. Patient reports he has a history of being told he had kidney stones but never requiring any intervention. Patient hasn't noticed any hematuria or dysuria or urinary frequency. Eyes any fevers chills nausea vomiting or change in bowel or bladder habits. Patient is status post appendectomy. - Related Data Home Medications Medication Instructions Recorded Confirmed hydroCHLOROthiazide [Hydrodiuril] 25 mg PO DAILY 12/08/13 10/29/18 lisinopriL [Zestril] 5 mg PO DAILY 01/05/18 10/29/18 Previous Rx's Medication Instructions Recorded Amoxicillin/Potassium Clav 1 tab PO Q12HR 7 Days #14 tab 10/29/18 [Augmentin 875-125 Tablet] Acetaminophen-Codeine 300-30mg 1 tab PO Q4H PRN 3 Days #18 tablet 04/02/20 [Tylenol w/codeine #3] Ondansetron Odt [Zofran Odt] 4 mg PO Q8HR PRN #12 tab 04/02/20 Tamsulosin HCl [Flomax] 0.4 mg PO DAILY #14 capsule 04/02/20 Allergies Allergy/AdvReac Type Severity Reaction Status Date / Time hydrocodone [From [place]] AdvReac constipatio Verified 04/02/20 03:02 n Review of Systems ROS Statement: Those systems with pertinent positive or pertinent negative responses have been documented in the HPI. ROS Other: All systems not noted in ROS Statement are negative. Past Medical History Past Medical History: Cancer, GERD/Reflux, Hypertension Additional Past Medical History / Comment(s): HX COLON Cancer, gout, History of Any Multi-Drug Resistant Organisms: None Reported Past Surgical History: Appendectomy, Bowel Resection, Hernia Repair Additional Past Surgical History / Comment(s): PORT A CATH/later removed Past Anesthesia/Blood Transfusion Reactions: No Reported Reaction Past Psychological History: No Psychological Hx Reported Smoking Status: Never smoker Past Alcohol Use History: None Reported Past Drug Use History: None Reported - Past Family History Father History Unknown: Yes Mother History Unknown: Yes Sister(s) Family Medical History: Cancer Additional Family Medical History / Comment(s): TONGUE General Exam - General Exam Comments Initial Comments: Physical Exam GENERAL: Patient is well-developed and well-nourished. Appears moderately distressed by discomfort, HENT: Normocephalic, Atraumatic. EYES: PERRL, EOMI PULMONARY: Unlabored respirations. CARDIOVASCULAR: RRR Warm and well perfused extremities ABDOMEN: Mild tenderness to palpation in the right lower quadrant Mild tenderness to percussion of the flanks bilaterally SKIN: No rashes or bruising : Deferred NEUROLOGIC: Alert and oriented Normal speech Normal gait MUSCULOSKELETAL: Moving all extremities with no apparent injury PSYCHIATRIC: No SI/HI Limitations: no limitations Course Vital Signs 04/02/20 04/02/20 04/02/20 02:59 04:16 05:00 Temperature 97.8 F Pulse Rate 95 81 88 Respiratory 18 18 19 Rate Blood Pressure 165/75 137/95 157/96 O2 Sat by Pulse 96 95 96 Oximetry Medical Decision Making - Medical Decision Making The patient was seen and evaluated history is obtained from the patient Patient with hours of right lower quadrant abdominal pain with radiation towards the pelvis no change in bowel or bladder habits Patient has a history of colon cancer, diverticulitis as well as kidney stones Review of medical record reveals no evidence of kidney stones on CT scans obtained in 2016 in 2017 which are the most recent CBC CMP and urinalysis are unremarkable with no hematuria noted Computed tomography scan with contrast was obtained and resulted with evidence of an obstructing right-sided renal calculi, patient had minimal pain improvement with morphine and was treated with a dose of Toradol Patient reported some improvement with toradol, small dose of dilaudid will be given prior to discharge. Patient discharged on Tylenol #3, Zofran and Flomax. Return parameters discussed, patient discharged home in stable condition. - Lab Data Result diagrams: 04/02/20 03:17 04/02/20 03:17 Lab Results 04/02/20 04/02/20 04/02/20 Range/Units 03:17 03:17 03:17 WBC 11.9 H (3.8-10.6) k/uL RBC 5.41 (4.30-5.90) m/uL Hgb 14.5 (13.0-17.5) gm/dL Hct 43.3 (39.0-53.0) % MCV 80.0 (80.0-100.0) fL MCH 26.7 (25.0-35.0) pg MCHC 33.4 (31.0-37.0) g/dL RDW 14.2 (11.5-15.5) % Plt Count 209 (150-450) k/uL Neutrophils % 83 % Lymphocytes % 11 % Monocytes % 3 % Eosinophils % 2 % Basophils % 0 % Neutrophils # 9.9 H (1.3-7.7) k/uL Lymphocytes # 1.3 (1.0-4.8) k/uL Monocytes # 0.4 (0-1.0) k/uL Eosinophils # 0.2 (0-0.7) k/uL Basophils # 0.1 (0-0.2) k/uL Sodium 136 L (137-145) mmol/L Potassium 4.2 (3.5-5.1) mmol/L Chloride 100 (98-107) mmol/L Carbon Dioxide 26 (22-30) mmol/L Anion Gap 10 mmol/L BUN 12 (9-20) mg/dL Creatinine 0.78 (0.66-1.25) mg/dL Est GFR (CKD-EPI)AfAm >90 (>60 ml/min/1.73 sqM) Est GFR (CKD-EPI)NonAf >90 (>60 ml/min/1.73 sqM) Glucose 143 H (74-99) mg/dL Calcium 9.2 (8.4-10.2) mg/dL Total Bilirubin 0.5 (0.2-1.3) mg/dL AST 32 (17-59) U/L ALT 27 (4-49) U/L Alkaline Phosphatase 81 (38-126) U/L Total Protein 7.5 (6.3-8.2) g/dL Albumin 4.4 (3.5-5.0) g/dL Urine Color Light Yellow Urine Appearance Clear (Clear) Urine pH 7.0 (5.0-8.0) Ur Specific [place] 1.010 (1.001-1.035) Urine Protein Negative (Negative) Urine Glucose (UA) Negative (Negative) Urine Ketones Negative (Negative) Urine Blood Negative (Negative) Urine Nitrite Negative (Negative) Urine Bilirubin Negative (Negative) Urine Urobilinogen <2.0 (<2.0) mg/dL Ur Leukocyte Esterase Negative (Negative) Disposition Clinical Impression: Right kidney stone Disposition: HOME SELF-CARE Condition: Stable Additional Instructions: As we discussed you have a 6mm kidney stone in the ureter (tube from kidney to bladder) this size stone will likely pass on its own, you will be discharged with pain medications, nausea medication and flomax which may help the stone pass Drink plenty of fluids Return to the ER for any worsening pain or development of new or concerning symptoms Prescriptions: Tamsulosin HCl [Flomax] 0.4 mg PO DAILY #14 capsule Acetaminophen-Codeine 300-30mg [Tylenol w/codeine #3] 1 tab PO Q4H PRN 3 Days #18 tablet PRN Reason: Pain Ondansetron Odt [Zofran Odt] 4 mg PO Q8HR PRN #12 tab PRN Reason: Nausea Is patient prescribed a controlled substance at d/c from ED?: Yes When asked, does pt state using other controlled substances?: No If prescribed controlled substance>3 days was MAPS reviewed?: Prescribed <3 Days If opioid is for acute pain is fill amount 7 days or less?: Yes If Rx opioid, was Start Talking consent form obtained?: Yes Referrals: Rodrigue Razo MD [Primary Care Provider] - 1-2 days
--- NOTE | 2020-04-02 04:45 | CT ---
EXAMINATION TYPE: CT abdomen pelvis w con DATE OF EXAM: 04/02/2020 COMPARISON: 10/22/2016 HISTORY: pain CT DLP: 2644.4 mGycm Automated exposure control for dose reduction was used. CONTRAST: Performed with IV Contrast, patient injected with 100 mL of Isovue 300. Lung bases are clear. There is no pleural effusion. Liver spleen stomach pancreas gallbladder appear normal. Bile ducts are not dilated. There is no adrenal mass. There is 6 mm calculus posterior left kidney. There is 3 mm calculus latera l left kidney. There is 3 mm calculus posterior right kidney. There is right-sided hydronephrosis. Th ere is obstructing 6 mm calculus in the proximal right ureter. There is no retroperitoneal adenopathy. Bladder distends smoothly. There is no inguinal hernia. There is no free fluid in the pelvis. There is prostatic calcification. Delayed images show delayed right side pyelogram. Appendix is not definitely seen. There is no sign of thickened appendix. There is no mesenteric edema. There is no ascites or free air. There is no bowel obstruction. Lumbar vertebra have normal spacing and alignment. Posterior elements are intact. Bony pelvis is intact. The hip joints appear intact. IMPRESSION: Bilateral renal calculi. Obstructing calculus proximal right ureter with right-sided hydronephrosis. Obstruction is new compared to old exam. Intrarenal calculi are essentially new compared to old exam.
[2020-04-02] MEDS ORDERED: KETOROLAC 15 MG/ML 1 ML VIAL IVP STA (04:54)
[2020-04-02] MEDS ORDERED: HYDROmorphone 1 MG/ML 1 ML SYRINGE IVP STA (05:57)
[2020-04-02 06:55] VITALS: BP 144/91; PULSE 84; RESP 18; TEMP 97.9
== END 2020-04-02 06:54 | disposition home or self-care (01) ==
LOC: EC 02:56
DX: N20.0 Calculus of kidney (principal); I10 Essential (primary) hypertension; Z79.899 Other long term (current) drug therapy; Z88.5 Allergy status to narcotic agent; Z80.8 Family history of malignant neoplasm of other organs or systems; Z85.038 Personal history of other malignant neoplasm of large intestine; Z90.49 Acquired absence of other specified parts of digestive tract
CPT/HCPCS: 36415; 80053; 85025; 81003; 74018; 74177; 99284; 96374; 96375 ×3; 96361 ×2; J2270; J2405; J1170; J1885; Q9967

== ENCOUNTER 2020-04-03 13:46 | Emergency (ER) | payer BC ==
[2020-04-03 13:51] VITALS: RESP 18
[2020-04-03] MEDS ORDERED: KETOROLAC 15 MG/ML 1 ML VIAL IVP STA (14:03)
[2020-04-03] MEDS ORDERED: ONDANSETRON 4 MG/2 ML VIAL IVP STA (14:03)
--- NOTE | 2020-04-03 14:14 | ED ---
Nausea/Vomiting/Diarrhea HPI - General Chief complaint: Nausea/Vomiting/Diarrhea Stated complaint: kidney stone Time Seen by Provider: 04/03/20 14:00 Source: patient Mode of arrival: wheelchair Limitations: no limitations - History of Present Illness Initial comments: 59-year-old male presenting today for chief complaint of nausea vomiting. Patient states she was just diagnosed with a kidney stone the right side and has had some intermittent right flank pain. Patient states his symptoms were controlled upon discharge yesterday. He denies any new fever or chills. Patient denies a difficulty urinating or noting hematuria. Patient states that he is unable to keep down the Zofran he was prescribed for the pain medications secondary to the vomiting, and thus presented to the emergency department for symptomatically control. Patient denies any specific increasing pain. Patient denies chest pain, SOB, or blood in vomit. Patient appears nontoxic. He does appear uncomfortable. Patient states that toradol seemed to help. - Related Data Home Medications Medication Instructions Recorded Confirmed hydroCHLOROthiazide [Hydrodiuril] 25 mg PO DAILY 12/08/13 10/29/18 lisinopriL [Zestril] 5 mg PO DAILY 01/05/18 10/29/18 Previous Rx's Medication Instructions Recorded Amoxicillin/Potassium Clav 1 tab PO Q12HR 7 Days #14 tab 10/29/18 [Augmentin 875-125 Tablet] Acetaminophen-Codeine 300-30mg 1 tab PO Q4H PRN 3 Days #18 tablet 04/02/20 [Tylenol w/codeine #3] Ondansetron Odt [Zofran Odt] 4 mg PO Q8HR PRN #12 tab 04/02/20 Tamsulosin HCl [Flomax] 0.4 mg PO DAILY #14 capsule 04/02/20 Ketorolac [Toradol] 10 mg PO Q8HR 3 Days #9 tab 04/03/20 Allergies Allergy/AdvReac Type Severity Reaction Status Date / Time hydrocodone [From [place]] AdvReac constipatio Verified 04/03/20 13:52 n Review of Systems ROS Statement: Those systems with pertinent positive or pertinent negative responses have been documented in the HPI. ROS Other: All systems not noted in ROS Statement are negative. Past Medical History Past Medical History: Cancer, GERD/Reflux, Hypertension Additional Past Medical History / Comment(s): HX COLON Cancer, gout, History of Any Multi-Drug Resistant Organisms: None Reported Past Surgical History: Appendectomy, Bowel Resection, Hernia Repair Additional Past Surgical History / Comment(s): PORT A CATH/later removed Past Anesthesia/Blood Transfusion Reactions: No Reported Reaction Past Psychological History: No Psychological Hx Reported Smoking Status: Never smoker Past Alcohol Use History: None Reported Past Drug Use History: None Reported - Past Family History Father History Unknown: Yes Mother History Unknown: Yes Sister(s) Family Medical History: Cancer Additional Family Medical History / Comment(s): TONGUE General Exam - General Exam Comments Initial Comments: General: The patient is awake and alert, in no distress Eye: +3 mm pupils are equal, round and reactive to light, extra-ocular movements are intact. No nystagmus. There is normal conjunctiva bilaterally. No signs of icterus. Cardiovascular: There is a regular rate and rhythm. No murmur, rub or gallop is appreciated. Respiratory: Lungs are clear to auscultation, respirations are non-labored, breath sounds are equal. No wheezes, stridor, rales, or rhonchi. Gastrointestinal: Soft, non-distended, non-tender abdomen without masses or organomegaly noted. There is no rebound or guarding present. No CVA tenderness. Musculoskeletal: Normal ROM, no tenderness. Strength 5/5. Sensation intact. Radial pulses equal bilaterally 2+. Neurological: A&O x 3. CN II-XII intact grossly, There are no obvious motor or sensory deficits. Coordination appears grossly intact. Speech is normal. Skin: Skin is warm and dry and no rashes or lesions are noted. Psychiatric: Cooperative, appropriate mood & affect, normal judgment. Limitations: no limitations Course Vital Signs 04/03/20 04/03/20 13:47 14:52 Temperature 97.7 F Pulse Rate 98 85 Respiratory 18 18 Rate Blood Pressure 151/91 125/81 O2 Sat by Pulse 99 96 Oximetry - Reevaluation(s) Reevaluation #1: on re-evaluation patient requesting discharge pain controlled. no vomiting. remains afebrile. no signs of infection upon evaluation of the UA. 04/03/20 14:50 Medical Decision Making - Medical Decision Making Labs, urine, CT reviewed from yesterday. Stoen present. Patient did not appear to have septic stone. Afebrile here and at home. Symptoms controlled. Patient will be discharged with short course of toradol and urology f/u. Patient and beside are agreeable to care plan as is attending provider Dr perdue. - Lab Data Result diagrams: 04/03/20 14:18 04/03/20 14:18 Lab Results 04/03/20 04/03/20 Range/Units 14:18 14:18 WBC 16.1 H (3.8-10.6) k/uL RBC 5.46 (4.30-5.90) m/uL Hgb 14.3 (13.0-17.5) gm/dL Hct 43.0 (39.0-53.0) % MCV 78.9 L (80.0-100.0) fL MCH 26.2 (25.0-35.0) pg MCHC 33.2 (31.0-37.0) g/dL RDW 14.1 (11.5-15.5) % Plt Count 238 (150-450) k/uL Neutrophils % 87 % Lymphocytes % 7 % Monocytes % 5 % Eosinophils % 1 % Basophils % 0 % Neutrophils # 14.0 H (1.3-7.7) k/uL Lymphocytes # 1.0 (1.0-4.8) k/uL Monocytes # 0.8 (0-1.0) k/uL Eosinophils # 0.2 (0-0.7) k/uL Basophils # 0.0 (0-0.2) k/uL Sodium 131 L (137-145) mmol/L Potassium 4.1 (3.5-5.1) mmol/L Chloride 96 L (98-107) mmol/L Carbon Dioxide 22 (22-30) mmol/L Anion Gap 13 mmol/L BUN 16 (9-20) mg/dL Creatinine 1.18 (0.66-1.25) mg/dL Est GFR (CKD-EPI)AfAm 79 (>60 ml/min/1.73 sqM) Est GFR (CKD-EPI)NonAf 68 (>60 ml/min/1.73 sqM) Glucose 138 H (74-99) mg/dL Calcium 9.3 (8.4-10.2) mg/dL Total Bilirubin 0.7 (0.2-1.3) mg/dL AST 33 (17-59) U/L ALT 25 (4-49) U/L Alkaline Phosphatase 77 (38-126) U/L Total Protein 7.8 (6.3-8.2) g/dL Albumin 4.6 (3.5-5.0) g/dL Disposition Clinical Impression: Kidney stone on right side, Flank pain, Nausea, Leukocytosis Disposition: HOME SELF-CARE Condition: Good Instructions (If sedation given, give patient instructions): Kidney Stones (ED) Additional Instructions: Please use medication as discussed, do not take toradol with steroids or other NSAIDs like alleve, ibuprofen, naproxen as they could cause gastric ulcers. Please follow-up with urology as discussed. Please return to emergency room if the symptoms increase or worsen or for any other concerns. Prescriptions: Ketorolac [Toradol] 10 mg PO Q8HR 3 Days #9 tab Is patient prescribed a controlled substance at d/c from ED?: No Referrals: Nonstaff,Physician [Primary Care Provider] - 1-2 days Time of Disposition: 15:01
[2020-04-03 14:35] LABS: Basophils % (A) 0 %; Eosinophils # (A) 0.2 k/uL (0-0.7); Eosinophils % (A) 1 %; HGB 14.3 gm/dL (13.0-17.5); Lymphocytes % (A) 7 %; MCH 26.2 pg (25.0-35.0); MCHC 33.2 g/dL (31.0-37.0); MCV 78.9 fL (80.0-100.0); Mean Platelet Volume 7.4; Monocytes # (A) 0.8 k/uL (0-1.0); Monocytes % (A) 5 %; Neutrophils % (A) 87 %; Platelet Count 238 k/uL (150-450); RBC 5.46 m/uL (4.30-5.90); RDW 14.1 % (11.5-15.5); WBC 16.1 k/uL (3.8-10.6)
[2020-04-03 14:45] LABS: Albumin 4.6 g/dL (3.5-5.0); Calcium 9.3 mg/dL (8.4-10.2); Potassium 4.1 mmol/L (3.5-5.1); Total Bilirubin 0.7 mg/dL (0.2-1.3); Total Protein 7.8 g/dL (6.3-8.2)
[2020-04-03 15:08] VITALS: BP 122/80; PULSE 89; TEMP 98.2
== END 2020-04-03 15:09 | disposition home or self-care (01) ==
LOC: EC 13:46
DX: N20.0 Calculus of kidney (principal); D72.829 Elevated white blood cell count, unspecified; I10 Essential (primary) hypertension; M10.9 Gout, unspecified; Z88.5 Allergy status to narcotic agent; Z79.899 Other long term (current) drug therapy; Z90.49 Acquired absence of other specified parts of digestive tract; Z98.890 Other specified postprocedural states; Z85.038 Personal history of other malignant neoplasm of large intestine
CPT/HCPCS: 36415; 80053; 85025; 96374; 96375; 99284; J2405; J1885

== ENCOUNTER 2020-04-17 08:42 | Inpatient (IN) | payer BC ==
[2020-04-17] MEDS ORDERED: KETOROLAC 15 MG/ML 1 ML VIAL IVP STA (09:03)
[2020-04-17] MEDS ORDERED: SODIUM CHLORIDE 0.9% 500 ML 500 ML IV STA (09:03)
[2020-04-17] MEDS ORDERED: SODIUM CHLORIDE 0.9% 1,000 ML IV STA (09:03)
--- NOTE | 2020-04-17 09:06 | ED ---
Male Urogenital HPI - General Chief complaint: Urogenital Stated complaint: KIDNEY STONE Time Seen by Provider: 04/17/20 08:54 Source: patient, family, RN notes reviewed Mode of arrival: ambulatory Limitations: no limitations - History of Present Illness Initial comments: This is a 59-year-old male with a history kidney stones who states he's been fighting a kidney stone on the right side for 2 weeks. He has a 6 mm stone that apparently traveled from the kidney area down to the bladder but now he has right flank pain and there is concern for second stone. He states the pain is generally well 5/10 severity but will get as severe as 8 or 9/10 he does come in waves. No fevers chills or sweats he has had nausea vomiting however. Some right testicular pain reported. He did contact his urologist was instructed to come the emergency department. MD Complaint: testicle pain, other - Related Data Home Medications Medication Instructions Recorded Confirmed hydroCHLOROthiazide [Hydrodiuril] 25 mg PO DAILY 12/08/13 04/17/20 lisinopriL [Zestril] 5 mg PO DAILY 01/05/18 04/17/20 ALPRAZolam [Xanax] 0.25 mg PO DAILY PRN 04/17/20 04/17/20 Ketorolac [Toradol] 10 mg PO Q6H PRN 04/17/20 04/17/20 Previous Rx's Medication Instructions Recorded Ondansetron Odt [Zofran Odt] 4 mg PO Q8HR PRN #12 tab 04/02/20 Tamsulosin HCl [Flomax] 0.4 mg PO DAILY #14 capsule 04/02/20 Allergies Allergy/AdvReac Type Severity Reaction Status Date / Time codeine AdvReac Nausea & Verified 04/17/20 10:00 [From Tylenol-Codeine #3] Vomiting hydrocodone [From [place]] AdvReac constipatio Verified 04/17/20 10:00 n Review of Systems ROS Statement: Those systems with pertinent positive or pertinent negative responses have been documented in the HPI. ROS Other: All systems not noted in ROS Statement are negative. Past Medical History Past Medical History: Cancer, GERD/Reflux, Hypertension Additional Past Medical History / Comment(s): HX COLON Cancer, gout, History of Any Multi-Drug Resistant Organisms: None Reported Past Surgical History: Appendectomy, Bowel Resection, Hernia Repair Additional Past Surgical History / Comment(s): PORT A CATH/later removed Past Anesthesia/Blood Transfusion Reactions: No Reported Reaction Past Psychological History: No Psychological Hx Reported Smoking Status: Never smoker Past Alcohol Use History: None Reported Past Drug Use History: None Reported - Past Family History Father History Unknown: Yes Mother History Unknown: Yes Sister(s) Family Medical History: Cancer Additional Family Medical History / Comment(s): TONGUE General Exam - General Exam Comments Initial Comments: This is a well-developed well-nourished awake alert oriented times 3 male Limitations: no limitations General appearance: alert, anxious, in distress Head exam: Present: atraumatic, normocephalic, normal inspection Eye exam: Present: normal appearance, PERRL, EOMI. Absent: scleral icterus, conjunctival injection, periorbital swelling ENT exam: Present: normal exam, mucous membranes moist Neck exam: Present: normal inspection. Absent: tenderness, meningismus, lymphadenopathy Respiratory exam: Present: normal lung sounds bilaterally. Absent: respiratory distress, wheezes, rales, rhonchi, stridor Cardiovascular Exam: Present: regular rate, normal rhythm, normal heart sounds. Absent: systolic murmur, diastolic murmur, rubs, gallop, clicks GI/Abdominal exam: Present: soft, normal bowel sounds. Absent: distended, tenderness, guarding, rebound, rigid Rectal exam: Present: deferred Extremities exam: Present: normal inspection, full ROM, normal capillary refill. Absent: tenderness, pedal edema, joint swelling, calf tenderness Back exam: Present: normal inspection, CVA tenderness (R) (Post right flank tenderness palpation) Neurological exam: Present: alert, oriented X3, CN II-XII intact Psychiatric exam: Present: normal affect, normal mood Skin exam: Present: warm, dry, intact, normal color. Absent: rash Course Vital Signs 04/17/20 08:49 Temperature 98 F Pulse Rate 94 Respiratory 18 Rate Blood Pressure 133/83 O2 Sat by Pulse 97 Oximetry Medical Decision Making - Medical Decision Making I did discuss findings with Dr. Lozada. Patient be admitted he has intractable pain discuss this with patient family. - Lab Data Result diagrams: 04/17/20 09:20 04/17/20 09:20 Lab Results 10/06/20 10/06/20 Range/Units 09:20 09:20 WBC 14.6 H (3.8-10.6) k/uL RBC 5.41 (4.30-5.90) m/uL Hgb 14.4 (13.0-17.5) gm/dL Hct 43.5 (39.0-53.0) % MCV 80.3 (80.0-100.0) fL MCH 26.7 (25.0-35.0) pg MCHC 33.2 (31.0-37.0) g/dL RDW 13.8 (11.5-15.5) % Plt Count 262 (150-450) k/uL Neutrophils % 86 % Lymphocytes % 9 % Monocytes % 3 % Eosinophils % 2 % Basophils % 0 % Neutrophils # 12.5 H (1.3-7.7) k/uL Lymphocytes # 1.4 (1.0-4.8) k/uL Monocytes # 0.4 (0-1.0) k/uL Eosinophils # 0.2 (0-0.7) k/uL Basophils # 0.0 (0-0.2) k/uL Sodium 130 L (137-145) mmol/L Potassium 4.7 (3.5-5.1) mmol/L Chloride 93 L (98-107) mmol/L Carbon Dioxide 24 (22-30) mmol/L Anion Gap 13 mmol/L BUN 18 (9-20) mg/dL Creatinine 1.38 H (0.66-1.25) mg/dL Est GFR (CKD-EPI)AfAm 65 (>60 ml/min/1.73 sqM) Est GFR (CKD-EPI)NonAf 56 (>60 ml/min/1.73 sqM) Glucose 137 H (74-99) mg/dL Calcium 9.5 (8.4-10.2) mg/dL Total Bilirubin 1.0 (0.2-1.3) mg/dL AST 27 (17-59) U/L ALT 25 (4-49) U/L Alkaline Phosphatase 76 (38-126) U/L Total Protein 8.0 (6.3-8.2) g/dL Albumin 4.6 (3.5-5.0) g/dL - Radiology Data Radiology results: report reviewed (I did review the imaging and report evidence of a 5-6 mm persistent stone in the right proximal ureter with hydronephrosis also surrounding fluid to the proximal to mid right ureter.), image reviewed Disposition Clinical Impression: Renal colic on right side, Kidney stone on right side, Hydronephrosis, Intractable pain Disposition: ADMITTED IP TO THIS HOSP Condition: Fair Referrals: Chante Talavera MD [Primary Care Provider] - 1-2 days
[2020-04-17] MEDS ORDERED: ONDANSETRON 4 MG/2 ML VIAL IVP STA (09:20)
[2020-04-17 09:37] LABS: Basophils % (A) 0 %; Eosinophils # (A) 0.2 k/uL (0-0.7); Eosinophils % (A) 2 %; HCT 43.5 % (39.0-53.0); HGB 14.4 gm/dL (13.0-17.5); Lymphocytes # (A) 1.4 k/uL (1.0-4.8); Lymphocytes % (A) 9 %; MCH 26.7 pg (25.0-35.0); MCHC 33.2 g/dL (31.0-37.0); MCV 80.3 fL (80.0-100.0); Mean Platelet Volume 7.4; Monocytes # (A) 0.4 k/uL (0-1.0); Monocytes % (A) 3 %; Neutrophils # (A) 12.5 k/uL (1.3-7.7); Neutrophils % (A) 86 %; Platelet Count 262 k/uL (150-450); RBC 5.41 m/uL (4.30-5.90); RDW 13.8 % (11.5-15.5); WBC 14.6 k/uL (3.8-10.6)
--- NOTE | 2020-04-17 09:43 | XR ---
EXAMINATION TYPE: XR KUB portable DATE OF EXAM: 04/17/2020 9:36 AM CLINICAL HISTORY: Kidney stone, right-sided flank pain. TECHNIQUE: 3 Upright KUB images of the abdomen are obtained. COMPARISON: CT abdomen and pelvis April 02, 2020. FINDINGS: Gas is seen in nondistended stomach bubble. Some paucity of bowel gas. Gas is seen in nondi stended small and large bowel loops. Small bilateral renal calculi on CT less well seen on plain films due to patient's body habitus and s mall size. There is persistent 5 to 6 mm calculus upper pole of the left kidney near the L1-L2 disc s pace level. No pneumoperitoneum. Lung bases are clear. Multilevel spurring of spine redemonstrated. IMPRESSION: As above.
[2020-04-17 09:47] LABS: Albumin 4.6 g/dL (3.5-5.0); Calcium 9.5 mg/dL (8.4-10.2)
[2020-04-17 09:48] LABS: Potassium 4.7 mmol/L (3.5-5.1)
[2020-04-17] MEDS: KETOROLAC 15 MG/ML 1 ML VIAL IVP STA (11:00)
--- NOTE | 2020-04-17 11:10 | CT ---
EXAMINATION TYPE: CT abdomen pelvis wo con DATE OF EXAM: 04/17/2020 HISTORY: right flank pain CT DLP: 1677 mGycm. Automated Exposure Control for Dose Reduction was Utilized. TECHNIQUE: CT scan of the abdomen and pelvis is performed without oral or IV contrast. COMPARISON: CT abdomen and pelvis April 02, 2020 and older CTs FINDINGS: Within the limitations of a non-contrast study, the following observations are made. LUNG BASES: No significant abnormality is appreciated. LIVER/GB: Visualized liver is heterogeneously hypodense consistent with diffuse fatty infiltration. PANCREAS: No significant abnormality is seen. SPLEEN: No significant abnormality is seen. ADRENALS: No significant abnormality is seen. KIDNEYS: There are roughly 4-6 nonobstructing left-sided renal calculi up to 7 mm in size upper pole level axial image 49 on current study. There is single 3-4 mm nonobstructing calculus mid pole level right kidney. There is 5 to 6 mm obstructing calculus proximal right ureter extends 92 causing mild-t o-moderate right-sided hydronephrosis. There is mild to moderate nonspecific perinephric and periuret eral fluid. No intraluminal calculus in bladder. BOWEL: Surgical sutures from bowel anastomosis left colon level of the left mid abdomen coronal image 49. Focal fecal prominence at this level. No suspicious overall small or large bowel dilatation. GENITAL ORGANS: Central zone calcifications in prostate measures upper limits of normal in size. LYMPH NODES: No greater than 1cm abdominal or pelvic lymph nodes are appreciated. OSSEOUS STRUCTURES: Moderate multilevel spurring in the spine. Moderate axial joint space loss both h ips. OTHER: No significant additional abnormality is seen. IMPRESSION: Persistent 5 to 6 mm obstructing calculus right proximal ureter causing [id number] right-sided hydronephrosis. New nonspecific ill-defined fluid surrounding proximal to mid right urete r.
[2020-04-17] MEDS ORDERED: fentaNYL (PF) 50 MCG/ML 2 ML AMP IV STA (12:10)
[2020-04-17 12:24] LABS: Appearance,Urine Clear (Clear); Bilirubin,Urine Negative (Negative); Blood,Urine Small (Negative); Color,Urine Yellow; Glucose,Urine (UA) Negative (Negative); Ketones,Urine Negative (Negative); Leukocyte Esterase,Urine Negative (Negative); Mucus,Urine Rare /hpf; Nitrite,Urine Negative (Negative); PH, Urine 6.5 (5.0-8.0); Protein,Urine Negative (Negative); RBC,Urine 11 /hpf (0-5); Specific Gravity,Urine 1.014 (1.001-1.035); Urobilinogen,Urine <2.0 mg/dL (<2.0); WBC,Urine 1 /hpf (0-5)
[2020-04-17] MEDS ORDERED: NALOXONE 0.4 MG/ML 1 ML VIAL IV PRN (12:26)
[2020-04-17] MEDS ORDERED: ONDANSETRON 4 MG/2 ML VIAL IVP PRN (12:26)
[2020-04-17] MEDS ORDERED: ALPRAZolam 0.25 MG TAB PO PRN (12:33)
[2020-04-17] MEDS: SODIUM CHLORIDE 0.9% 1,000 ML IV SCH ×2 (13:54→17:28)
[2020-04-17] MEDS: hydroCHLOROthiazide 25 MG TAB PO SCH (14:18)
[2020-04-17] MEDS: lisinopriL 5 MG TAB PO SCH (14:18)
[2020-04-17] MEDS: KETOROLAC 15 MG/ML 1 ML VIAL IVP PRN ×2 (17:25→23:41)
--- NOTE | 2020-04-17 20:22 | P.GSHP ---
History of Present Illness H&P Date: 04/17/20 Chief Complaint: Left ureteral calculus with pain and hydronephosis The patient is a 59-year-old male with a history of urolithiasis who has had intermittent right flank and right lower quadrant pain for approximately [address] scan of the abdomen and pelvis on 04/02/2020 identified a 4.5 x 5.6 mm calculus in the mid right ureter with mild to moderate hydronephrosis. The patient discussed treatment options with Dr. Back and elected for further observation. Since that time his pain has increased. He says that his pain ranges from 6-9 in intensity. Last night it was associated with nausea and vomiting. He presented to the emergency room where a CT scan was repeated. The calculus does not appear to have migrated in the last 2 weeks. Due to the persistent pain and nausea the patient was admitted for further evaluation and probable treatment of the calculus. In addition to the right ureteral calculus the patient has a 2 mm nonobstructing calculus in the mid pole of the right kidney and 3 nonobstructive calculi in the left kidney. The patient denies any fever or chills. He has no history of urinary tract infection. - Constitutional Constitutional: Denies chills, Denies fever - Cardiovascular Cardiovascular: Denies chest pain, Denies shortness of breath - Respiratory Respiratory: Denies cough, Denies wheezing - Gastrointestinal Gastrointestinal: Reports as per HPI, Reports heartburn - Genitourinary (Male) Genitourinary: Denies dysuria, Denies hematuria Past Medical History Past Medical History: Cancer, GERD/Reflux, Hypertension Additional Past Medical History / Comment(s): HX COLON Cancer, gout, kidney stones History of Any Multi-Drug Resistant Organisms: None Reported Past Surgical History: Appendectomy, Bowel Resection (Descending colon), Hernia Repair Additional Past Surgical History / Comment(s): PORT A CATH/later removed Past Anesthesia/Blood Transfusion Reactions: No Reported Reaction Past Psychological History: No Psychological Hx Reported Smoking Status: Never smoker Past Alcohol Use History: None Reported Past Drug Use History: None Reported - Past Family History Father History Unknown: Yes Mother History Unknown: Yes Sister(s) Family Medical History: Cancer Additional Family Medical History / Comment(s): TONGUE Medications and Allergies Home Medications Medication Instructions Recorded Confirmed Type hydroCHLOROthiazide [Hydrodiuril] 25 mg PO DAILY 12/08/13 04/17/20 History lisinopriL [Zestril] 5 mg PO DAILY 01/05/18 04/17/20 History Ondansetron Odt [Zofran Odt] 4 mg PO Q8HR PRN #12 tab 04/02/20 04/17/20 Rx Tamsulosin HCl [Flomax] 0.4 mg PO DAILY #14 capsule 04/02/20 04/17/20 Rx ALPRAZolam [Xanax] 0.25 mg PO DAILY PRN 04/17/20 04/17/20 History Ketorolac [Toradol] 10 mg PO Q6H PRN 04/17/20 04/17/20 History Allergies Allergy/AdvReac Type Severity Reaction Status Date / Time codeine AdvReac Nausea & Verified 04/17/20 10:00 [From Tylenol-Codeine #3] Vomiting hydrocodone [From [place]] AdvReac constipatio Verified 04/17/20 10:00 n Surgical - Exam Vital Signs Temp Pulse Resp BP Pulse Ox 98 F 94 18 133/83 97 04/17/20 08:49 04/17/20 08:49 04/17/20 08:49 04/17/20 08:49 04/17/20 08:49 - General well developed, well nourished, moderate pain - ENT no hearing loss - Neck no masses, no lymphadectomy - Respiratory normal respiratory effort - Abdomen Abdomen: soft, non tender, no guarding Hernia: none - Genitourinary normal penis with no external lesions Results - Labs 04/17/20 09:20 04/17/20 09:20 Abnormal Lab Results - Last 24 Hours (Table) 04/17/20 04/17/20 04/17/20 Range/Units : 09: 09:20 WBC 14.6 H (3.8-10.6) k/uL Neutrophils # 12.5 H (1.3-7.7) k/uL Sodium 130 L (137-145) mmol/L Chloride 93 L (98-107) mmol/L Creatinine 1.38 H (0.66-1.25) mg/dL Glucose 137 H (74-99) mg/dL Urine Blood Small H (Negative) Urine RBC 11 H (0-5) /hpf Urine Mucus Rare H (None) /hpf Diabetes panel 04/17/20 Range/Units 09:20 Sodium 130 L (137-145) mmol/L Potassium 4.7 (3.5-5.1) mmol/L Chloride 93 L (98-107) mmol/L Carbon Dioxide 24 (22-30) mmol/L BUN 18 (9-20) mg/dL Creatinine 1.38 H (0.66-1.25) mg/dL Glucose 137 H (74-99) mg/dL Calcium 9.5 (8.4-10.2) mg/dL AST 27 (17-59) U/L ALT 25 (4-49) U/L Alkaline Phosphatase 76 (38-126) U/L Total Protein 8.0 (6.3-8.2) g/dL Albumin 4.6 (3.5-5.0) g/dL Calcium panel 04/17/20 Range/Units 09:20 Calcium 9.5 (8.4-10.2) mg/dL Albumin 4.6 (3.5-5.0) g/dL Pituitary panel 04/17/20 Range/Units 09:20 Sodium 130 L (137-145) mmol/L Potassium 4.7 (3.5-5.1) mmol/L Chloride 93 L (98-107) mmol/L Carbon Dioxide 24 (22-30) mmol/L BUN 18 (9-20) mg/dL Creatinine 1.38 H (0.66-1.25) mg/dL Glucose 137 H (74-99) mg/dL Calcium 9.5 (8.4-10.2) mg/dL Adrenal panel 04/17/20 Range/Units 09:20 Sodium 130 L (137-145) mmol/L Potassium 4.7 (3.5-5.1) mmol/L Chloride 93 L (98-107) mmol/L Carbon Dioxide 24 (22-30) mmol/L BUN 18 (9-20) mg/dL Creatinine 1.38 H (0.66-1.25) mg/dL Glucose 137 H (74-99) mg/dL Calcium 9.5 (8.4-10.2) mg/dL Total Bilirubin 1.0 (0.2-1.3) mg/dL AST 27 (17-59) U/L ALT 25 (4-49) U/L Alkaline Phosphatase 76 (38-126) U/L Total Protein 8.0 (6.3-8.2) g/dL Albumin 4.6 (3.5-5.0) g/dL Assessment and Plan (1) Hydronephrosis with obstructing calculus Narrative/Plan: The patient's pain and slight elevation of creatinine appear to be secondary to a partially obstructive mid right ureteral calculus. The calculus has not migrated in the last 2 weeks and in view of the persistent pain, nausea and vomiting I discussed treatment via ureteroscopy with lithotripsy. Procedure will be performed either by myself or Dr. Zuniga tomorrow. Patient is aware of the operative risks which included possible placement of a double-J catheter postop. Current Visit: Yes Status: Acute Code(s): N13.2 - HYDRONEPHROSIS WITH RENAL AND URETERAL CALCULOUS OBSTRUCTION SNOMED Code(s): 71220060
[2020-04-17] MEDS ORDERED: bisacodyL 10 MG SUPP RECTAL STA (20:36)
[2020-04-18] MEDS: SODIUM CHLORIDE 0.9% 1,000 ML IV SCH ×3 (03:59→19:51)
[2020-04-18] MEDS: lisinopriL 5 MG TAB PO SCH (08:36)
[2020-04-18] MEDS: hydroCHLOROthiazide 25 MG TAB PO SCH (08:36)
[2020-04-18] MEDS ORDERED: TAMSULOSIN 0.4 MG CAP.ER.24H PO SCH (09:00)
[2020-04-18] MEDS ORDERED: hydroCHLOROthiazide 25 MG TAB PO SCH (09:00)
[2020-04-18] MEDS ORDERED: lisinopriL 5 MG TAB PO SCH (09:00)
[2020-04-18] MEDS ORDERED: LACTATED RINGERS 1,000 ML IV ONE (15:02)
[2020-04-18] MEDS ORDERED: ONDANSETRON 4 MG/2 ML VIAL IVP ONE (15:13)
[2020-04-18] MEDS ORDERED: DEXAMETHASONE SOD PHOSPHATE 4 MG/ML 1 ML VIAL IVP ONE (15:13)
[2020-04-18] MEDS ORDERED: WATER FOR INJECTION, STERILE 10 ML VIAL IV ONE (16:41)
[2020-04-18] MEDS ORDERED: ePHEDrine SULFATE/0.9% NACL/PF 50 MG/5 ML SYRINGE IV ONE (16:41)
[2020-04-18] MEDS ORDERED: LIDOCAINE 1% INJ 10MG/ML (20 ML MDV) ONE (16:41)
[2020-04-18] MEDS ORDERED: PROPOFOL 10 MG/ML 20 ML VIAL IV ONE (16:41)
[2020-04-18] MEDS ORDERED: PHENYLEPHRINE-0.9% NACL SYG 1 MG/10 ML SYRINGE ONE (16:41)
[2020-04-18] MEDS ORDERED: SUCCINYLCHOLINE CHLORIDE 100 MG/5 ML SYR IV ONE (16:41)
[2020-04-18] MEDS ORDERED: MIDAZOLAM 2 MG/2 ML VIAL ONE (16:41)
[2020-04-18] MEDS ORDERED: fentaNYL (PF) 50 MCG/ML 2 ML AMP ONE (16:41)
[2020-04-18] MEDS ORDERED: SODIUM CHLORIDE 0.9% 50 ML with ceFAZolin 1,000 MG IV ONE ×4 (17:08)
--- NOTE | 2020-04-18 18:01 | P.OP ---
Date of Procedure: 04/18/20 Preoperative Diagnosis: Right ureteral calculus Postoperative Diagnosis: Right ureteral calculus Procedure(s) Performed: Cystoscopy with right ureteroscopy, lithotripsy and placement of right double-J catheter Anesthesia: RODNEY Surgeon: Per Lozada Estimated Blood Loss (ml): 0 Pathology: other (Fragments of right ureteral calculus) Condition: stable Disposition: PACU Indications for Procedure: The patient is a 59-year-old male with right flank pain secondary to a 4.5 x 5.5 mm mid right ureteral calculus which has been located in the same location for several weeks. Due to the persistent pain the patient was admitted. After reviewing treatment options the patient has elected to proceed with right ureteroscopy with lithotripsy. Description of Procedure: The patient was taken to the operating suite and placed in the supine position on the fluoroscopy table. General anesthesia via orotracheal intubation was instituted. The patient was positioned in the dorsal lithotomy position with his legs suspended from padded Arnaud stirrups. Pneumatic compression stockings were applied to the lower legs. The genitalia was prepped with Betadine soap, painted with Betadine solution and draped in a sterile fashion. The penile and prostatic urethra traversed under direct vision using the 17-Beninese cystoscope sheath and 30 lens. The anterior urethra was unremarkable. Prostatic urethra showed evidence of mild lateral lobe enlargement. The bladder was examined. Both ureteral orifices were of normal location. The bladder was free of tumor, foreign body and calculus. A 0.035 straight Glidewire was advanced through the right ureteral orifice and beyond the calculus would was located at the L5 level. The cystoscope was withdrawn. I then attempted to advance the flexible ureteroscope over the Glidewire and into the right ureter but it would not pass beyond the ureteral meatus. The right ureteral meatus was then dilated using an 11-Beninese obturator from the 13-Beninese ureteral reentry sheath. The flexible ureteroscope was again passed over the Glidewire but would still not pass into the distal ureter. The 13-Beninese ureteral reentry sheath with obturator was advanced over the Glidewire and under fluoroscopic guidance positioned so that the proximal and of the reentry sheath was at the pelvic brim. Ureteroscopy was performed using the flexible ureteroscope. The calculus was identified in the right mid ureter as it had migrated slightly during positioning of the reentry sheath. The calculus was then broken down into multiple smaller fragments using the 275 fiber and the holmium laser at a setting of 40 cps and 400 mJ. The calculus fragments were then removed from the ureter using a 1.9-Beninese nitinol stone basket. Ureteroscope was advanced up into the kidney. A small fragment was identified in a midpole calyx. The remainder the calyces were examined and no other calculi or fragments were noted. The ureteroscope was withdrawn. The Glidewire was reintroduced through the ureteral reentry sheath and the reentry sheath was removed. The 21-Beninese cystoscope sheath with 30 lens was then backloaded over the Glidewire and reintroduced into the bladder. A 26 centimeter by 6-Beninese double-J catheter was then advanced over the Glidewire and positioned fluoroscopically so that the proximal end coiled in the region of the renal pelvis and the distal and coiled in the bladder cystoscope was removed and the procedure was terminated. Patient tolerated the procedure well and left the operating room awake and in satisfactory condition. The double-J catheter will be removed in approximately 1 week. The patient will be discharged later today provided he is comfortable.
[2020-04-18] MEDS ORDERED: HYDROmorphone 0.5 MG/0.5 ML SYRINGE IVP ONE (18:10)
[2020-04-18] MEDS: KETOROLAC 15 MG/ML 1 ML VIAL IVP STA (18:10)
[2020-04-18 20:03] VITALS: RESP 18; TEMP 98
[2020-04-18 21:10] VITALS: BP 129/81; PULSE 99
--- NOTE | 2020-04-19 07:40 | FL ---
Fluoroscopy INDICATION: Pain FINDINGS: Fluoroscopy time: 28 seconds. Images obtained: 1. IMPRESSIONS: 1. Documentation of fluoroscopy.
== END 2020-04-18 21:18 | disposition home or self-care (01) | DRG 661 ==
LOC: EC 08:42 → 6NMEDSUR 12:26
PROVIDERS: ADMIT Urology; ATTEND Urology
PROC: 0TC68ZZ Extirpation of Matter from Right Ureter, Via Natural or Artificial Opening Endoscopic (ICD-10-PCS; principal; 2020-04-18 11:20)
PROC: 0T768DZ Dilation of Right Ureter with Intraluminal Device, Via Natural or Artificial Opening Endoscopic (ICD-10-PCS; principal; 2020-04-18 11:20)
DX: N13.2 Hydronephrosis with renal and ureteral calculous obstruction (principal); I10 Essential (primary) hypertension; K21.9 Gastro-esophageal reflux disease without esophagitis; N50.811 Right testicular pain; Z79.899 Other long term (current) drug therapy; Z87.442 Personal history of urinary calculi; Z85.038 Personal history of other malignant neoplasm of large intestine; Z90.49 Acquired absence of other specified parts of digestive tract; Z87.19 Personal history of other diseases of the digestive system; Z87.39 Personal history of other diseases of the musculoskeletal system and connective tissue; Z98.890 Other specified postprocedural states; Z88.5 Allergy status to narcotic agent; Z80.8 Family history of malignant neoplasm of other organs or systems
CPT/HCPCS: 36415; 74018; 74176; 80053; 81001; 82365; 85025; 96361; 96374; 96375; 96376; 99285

== ENCOUNTER → 2020-05-24 | Outpatient (CLI) | payer BC ==
--- NOTE | 2020-05-24 20:08 | US ---
EXAMINATION TYPE: US kidneys/renal and bladder DATE OF EXAM: 05/24/2020 COMPARISON: CT 04/17/2020 CLINICAL HISTORY: 59-year-old male [id number] R HYDRONEPHROSIS history of stones [id number] ago.. TECHNIQUE: Multiple sonographic images of the kidneys and bladder are obtained. FINDINGS: Regional Economist notes: Limited by body habitus. EXAM MEASUREMENTS: Right Kidney: 11.0 x 6.5 x 4.3 cm Left Kidney: 12.5 x 6.1 x 4.5 cm Kidneys: No hydronephrosis on either side. Bladder: wnl Bilateral Jets seen: Yes IMPRESSION: No hydronephrosis. The right-sided hydronephrosis seen on the 04/17/2020 CT appears to have resolved.
== END | disposition home or self-care (01) ==
LOC: RADUSWWP 16:06
PROVIDERS: ATTEND Urology
DX: N13.2 Hydronephrosis with renal and ureteral calculous obstruction (principal); Z88.5 Allergy status to narcotic agent; Z88.6 Allergy status to analgesic agent
CPT/HCPCS: 76770

== ENCOUNTER 2021-08-06 08:28 | Day surgery (SDC) | payer BC ==
[2021-07-30 16:16] VITALS: BMI 38.3
[2021-08-06 08:54] VITALS: TEMP 96
[2021-08-06] MEDS ORDERED: LIDOCAINE 1% (10MG/ML) FOR IV START INTRADERMA ONE (09:05)
[2021-08-06] MEDS ORDERED: PROPOFOL 10 MG/ML 20 ML VIAL IV ONE (09:08)
[2021-08-06] MEDS ORDERED: LIDOCAINE 1% INJ 10MG/ML (20 ML MDV) ONE (09:08)
--- NOTE | 2021-08-06 09:18 | P.GSHP ---
History of Present Illness H&P Date: 08/06/21 Chief Complaint: Blood in stool 60-year-old male known to our service. Patient had previous left colectomy for colon cancer. Patient's last colonoscopy 3.5 years ago. 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 Patient recently noticed some rectal bleeding. Otherwise doing well. Only had 1 episode of bleeding. Past Medical History Past Medical History: Cancer, GERD/Reflux, Hypertension Additional Past Medical History / Comment(s): HX Colon Cancer 2012, gout, kidney stones History of Any Multi-Drug Resistant Organisms: None Reported Past Surgical History: Appendectomy, Bowel Resection, Hernia Repair Additional Past Surgical History / Comment(s): Colonoscopy. Port-A-CATH/later removed Past Anesthesia/Blood Transfusion Reactions: No Reported Reaction Smoking Status: Never smoker - Past Family History Father History Unknown: Yes Mother History Unknown: Yes Sister(s) Family Medical History: Cancer Additional Family Medical History / Comment(s): TONGUE Medications and Allergies Home Medications Medication Instructions Recorded Confirmed Type hydroCHLOROthiazide [Hydrodiuril] 25 mg PO DAILY 12/08/13 07/30/21 History lisinopriL [Zestril] 5 mg PO DAILY 01/05/18 07/30/21 History ALPRAZolam [Xanax] 0.25 mg PO DAILY PRN 04/17/20 07/30/21 History Allopurinol [Zyloprim] 100 mg PO DAILY 07/30/21 07/30/21 History Iron 27 mg PO DAILY 07/30/21 07/30/21 History Imperial-3 Fatty Acids/Fish Oil [Fish 1 each PO DAILY 07/30/21 07/30/21 History Oil 1,000 mg Softgel] Allergies Allergy/AdvReac Type Severity Reaction Status Date / Time codeine AdvReac Nausea & Verified 08/06/21 08:51 [From Tylenol-Codeine #3] Vomiting hydrocodone [From [place]] AdvReac constipatio Verified 08/06/21 08:51 n Surgical - Exam Vital Signs Temp Pulse Resp BP Pulse Ox 96.0 F L 97 16 138/88 95 08/06/21 08:53 08/06/21 08:53 08/06/21 08:53 08/06/21 08:53 08/06/21 08:53 Physical exam: General: Well-developed, well-nourished HEENT: Normocephalic, sclerae nonicteric Abdomen: Nontender, nondistended Extremities: No edema Neuro: Alert and oriented Assessment and Plan (1) Blood in stool Narrative/Plan: Will proceed with colonoscopy at this time Current Visit: Yes Status: Acute Code(s): K92.1 - MELENA SNOMED Code(s): 611307256
--- NOTE | 2021-08-06 09:30 | P.PCN ---
Date of Procedure: 08/06/21 Procedure(s) Performed: PREOPERATIVE DIAGNOSIS: Blood in stool, history of colon cancer POSTOPERATIVE DIAGNOSIS: Normal exam PROCEDURE: Colonoscopy ANESTHESIA: MAC SURGEON: Sukumar Woods M.D. SPECIMENS: None ENDOSCOPIC PROCEDURE: The patient was placed on the endoscopy table in the left decubitus position. The Olympus colonoscope was inserted into the anus and passed under direct visualization to the base of the cecum. The appendiceal orifice was visualized. From that point the scope was slowly withdrawn inspecting all surfaces carefully. There were no neoplastic inflammatory or polypoid lesions throughout the cecum, ascending, transverse, sigmoid and rectum. The previous colocolonic anastomosis at 45 cm this was widely patent. There was no visible diverticulosis. Digital rectal examination was normal. The patient was taken to the recovery room in stable condition per anesthesia guidelines. RECOMMENDATIONS: Resume diet. Follow-up colonoscopy 5 years.
[2021-08-06 09:35] VITALS: RESP 12
[2021-08-06 09:48] VITALS: BP 115/79; PULSE 95
== END 2021-08-06 10:08 | disposition home or self-care (01) ==
LOC: ORWHC2ENDO 08:28
PROVIDERS: ATTEND Surgery
DX: Z90.49 Acquired absence of other specified parts of digestive tract (principal); K21.9 Gastro-esophageal reflux disease without esophagitis; I10 Essential (primary) hypertension; Z85.038 Personal history of other malignant neoplasm of large intestine; Z87.442 Personal history of urinary calculi; Z98.890 Other specified postprocedural states; Z80.0 Family history of malignant neoplasm of digestive organs; Z79.899 Other long term (current) drug therapy; Z88.5 Allergy status to narcotic agent
CPT/HCPCS: 45378; J2001; J2704

== ENCOUNTER → 2022-03-29 | Outpatient (CLI) | payer BC ==
[2022-03-29 16:11] LABS: Chol/HDL Ratio 3.87 Ratio; LDL Cholesterol,Calculated 66.4 mg/dL (0.0-131.0)
[2022-03-29 16:12] LABS: ALT 17 U/L (10-49); AST 18 U/L (14-35); African American GFR (CKD) 113.4 (60.0-200.0); Albumin 4.5 g/dL (3.8-4.9); Albumin/Globulin Ratio 1.69 (1.60-3.17); Alkaline Phosphatase 102 U/L (41-126); BUN/Creat Ratio 19.42 Ratio (12.00-20.00); Blood Urea Nitrogen 15.5 mg/dL (9.0-27.0); Calcium 9.2 mg/dL (8.7-10.3); Carbon Dioxide 24.5 mmol/L (20.0-27.5); Chloride 104 mmol/L (96-109); Globulin 2.7 g/dL (1.6-3.3); Glucose 96 mg/dL (70-110); Non-African American GFR(CKD) 97.9 (60.0-200.0); Potassium 4.4 mmol/L (3.5-5.5); Sodium 141 mmol/L (135-145); Total Protein 7.2 g/dL (6.2-8.2)
== END | disposition home or self-care (01) ==
LOC: LABWHC1 08:41
PROVIDERS: ATTEND Internal Medicine
DX: E78.5 Hyperlipidemia, unspecified (principal); R73.03 Prediabetes
CPT/HCPCS: 36415; 80053; 80061; 83036

== ENCOUNTER → 2022-10-04 | Outpatient (CLI) | payer BC ==
[2022-10-04 16:28] LABS: Basophils # (A) 0.07 X 10*3/uL (0.00-0.10); Basophils % (A) 0.9 %; Eosinophils % (A) 1.2 %; HCT 46.5 % (39.6-50.0); HGB 14.8 g/dL (13.0-17.0); Immature Grans, Automated 0.5 %; Lymphocytes # (A) 2.05 X 10*3/uL (0.90-5.00); Lymphocytes % (A) 25.4 %; MCH 26.5 pg (27.0-32.0); MCHC 31.8 g/dL (32.0-37.0); MCV 83.3 fL (80.0-97.0); Mean Platelet Volume 11.1 fL (9.5-12.2); Monocytes # (A) 0.48 X 10*3/uL (0.20-1.00); NRBC Per 100 WBC 0 /100 WBCS (0.0-0.0); Neutrophils # (A) 5.32 X 10*3/uL (1.80-7.70); Platelet Count 218 X 10*3/uL (140-440); RBC 5.58 X 10*6/uL (4.40-5.60); RDW 14.7 % (11.5-14.5); WBC 8.06 X 10*3/uL (4.50-10.00)
[2022-10-04 17:55] LABS: ALT 19 U/L (10-49); AST 19 U/L (14-35); African American GFR (CKD) 110.6 (60.0-200.0); Albumin 4.7 g/dL (3.8-4.9); Albumin/Globulin Ratio 1.64 (1.60-3.17); Alkaline Phosphatase 101 U/L (41-126); BUN/Creat Ratio 16.37 Ratio (12.00-20.00); Blood Urea Nitrogen 13.9 mg/dL (9.0-27.0); Calcium 9.5 mg/dL (8.7-10.3); Carbon Dioxide 27.6 mmol/L (20.0-27.5); Chloride 98 mmol/L (96-109); Chol/HDL Ratio 3.96 Ratio; Globulin 2.8 g/dL (1.6-3.3); Glucose 106 mg/dL (70-110); LDL Cholesterol,Calculated 69.4 mg/dL (0.0-131.0); Non-African American GFR(CKD) 95.4 (60.0-200.0); Potassium 4.5 mmol/L (3.5-5.5); Sodium 138 mmol/L (135-145); Total Protein 7.5 g/dL (6.2-8.2); Uric Acid 6.6 mg/dL (3.7-8.7)
== END | disposition home or self-care (01) ==
LOC: LABWHC1 08:06
PROVIDERS: ATTEND Internal Medicine
DX: Z00.00 Encounter for general adult medical examination without abnormal findings (principal); Z12.5 Encounter for screening for malignant neoplasm of prostate; Z11.59 Encounter for screening for other viral diseases; M10.9 Gout, unspecified; R73.03 Prediabetes
CPT/HCPCS: 86803; 80061; 80053; 84443; 84550; 85025; 83036; 36415; G0103

== ENCOUNTER 2022-11-21 23:34 | Inpatient (IN) | payer BC ==
[2022-11-22] MEDS ORDERED: SODIUM CHLORIDE 0.9% 1,000 ML IV STA ×2 (00:29→03:49)
[2022-11-22 00:44] LABS: Basophils % (A) 0 %; Eosinophils # (A) 0.1 k/uL (0-0.7); Eosinophils % (A) 0 %; HCT 37.1 % (39.0-53.0); HGB 12.7 gm/dL (13.0-17.5); Lymphocytes # (A) 0.9 k/uL (1.0-4.8); Lymphocytes % (A) 6 %; MCH 26.6 pg (25.0-35.0); MCHC 34.2 g/dL (31.0-37.0); MCV 77.8 fL (80.0-100.0); Mean Platelet Volume 8.5; Monocytes # (A) 0.8 k/uL (0-1.0); Monocytes % (A) 5 %; Neutrophils # (A) 13.4 k/uL (1.3-7.7); Neutrophils % (A) 87 %; Platelet Count 186 k/uL (150-450); Poikilocytosis Slight; RBC 4.77 m/uL (4.30-5.90); RDW 14.5 % (11.5-15.5); WBC 15.4 k/uL (3.8-10.6)
[2022-11-22] MEDS ORDERED: ONDANSETRON 4 MG/2 ML VIAL IVP STA (01:12)
--- NOTE | 2022-11-22 01:13 | ED ---
General Adult HPI - General Source: patient Mode of arrival: ambulatory Limitations: no limitations <Charlette Gracia - Last Filed: 11/22/22 04:22> <Kel Ramirez - Last Filed: 11/22/22 06:07> - General Chief complaint: Nausea/Vomiting/Diarrhea Stated complaint: FLU SYMPTOMS Time Seen by Provider: 11/22/22 00:28 - History of Present Illness Initial comments: Patient is a 62-year-old male who presents to the emergency department for nausea and vomiting. Patient states he has not been feeling well for the past 2 days. He reports productive cough with brown phlegm, exertional shortness of breath, chest tightness, nausea and vomiting. Patient states he had fever at 101F yesterday. He went to his primary care provider's office yesterday and was given an IM antibiotic dose and prescribed doxycycline BID without improvement. He denies history of cardiac disease. He is a nonsmoker. No history of asthma or COPD. No orthopnea, leg pain, swelling. No abdominal pain, diarrhea. (Charlette Gracia) - Related Data Home Medications Medication Instructions Recorded Confirmed hydroCHLOROthiazide [Hydrodiuril] 25 mg PO DAILY 12/08/13 07/30/21 lisinopriL [Zestril] 5 mg PO DAILY 01/05/18 07/30/21 ALPRAZolam [Xanax] 0.25 mg PO DAILY PRN 04/17/20 07/30/21 Iron 27 mg PO DAILY 07/30/21 07/30/21 [place]-3 Fatty Acids/Fish Oil [Fish 1 each PO DAILY 07/30/21 07/30/21 Oil 1,000 mg Softgel] allopurinoL [Zyloprim] 100 mg PO DAILY 07/30/21 07/30/21 Allergies Allergy/AdvReac Type Severity Reaction Status Date / Time codeine AdvReac Nausea & Verified 11/21/22 23:44 [From Tylenol-Codeine #3] Vomiting hydrocodone [From [place]] AdvReac constipatio Verified 11/21/22 23:44 n Review of Systems ROS Other: All systems not noted in ROS Statement are negative. <Charlette Gracia - Last Filed: 11/22/22 04:22> ROS Other: All systems not noted in ROS Statement are negative. <Kel Ramirez - Last Filed: 11/22/22 06:07> ROS Statement: Those systems with pertinent positive or pertinent negative responses have been documented in the HPI. Past Medical History Past Medical History: Cancer, Hypertension Additional Past Medical History / Comment(s): HX COLON Cancer, gout, kidney stones History of Any Multi-Drug Resistant Organisms: None Reported Past Surgical History: Bowel Resection Additional Past Surgical History / Comment(s): PORT A CATH/later removed , lithotripsy Past Anesthesia/Blood Transfusion Reactions: No Reported Reaction Past Psychological History: No Psychological Hx Reported Smoking Status: Never smoker Past Alcohol Use History: None Reported Past Drug Use History: None Reported - Past Family History Father History Unknown: Yes Mother History Unknown: Yes Sister(s) Family Medical History: Cancer Additional Family Medical History / Comment(s): TONGUE <Charlette Gracia - Last Filed: 11/22/22 04:22> General Exam Limitations: no limitations General appearance: alert, in no apparent distress Head exam: Present: atraumatic, normocephalic, normal inspection Respiratory exam: Present: decreased breath sounds (lower lung sanchez). Absent: normal lung sounds bilaterally, respiratory distress, wheezes, rales, rhonchi, stridor Cardiovascular Exam: Present: normal rhythm, tachycardia, normal heart sounds. Absent: regular rate, systolic murmur, diastolic murmur, rubs, gallop, clicks GI/Abdominal exam: Present: soft, normal bowel sounds. Absent: distended, tenderness, guarding, rebound, rigid Extremities exam: Present: normal inspection, full ROM, normal capillary refill. Absent: pedal edema, calf tenderness Neurological exam: Present: alert, oriented X3, CN II-XII intact Psychiatric exam: Present: normal affect, normal mood Skin exam: Present: warm, dry, intact, normal color. Absent: rash <Charlette Gracia - Last Filed: 11/22/22 04:22> Course Vital Signs 11/21/22 11/22/22 11/22/22 23:44 01:23 02:22 Temperature 98.3 F 98.2 F Pulse Rate 111 H 101 H 102 H Respiratory 22 18 16 Rate Blood Pressure 134/83 123/77 123/77 O2 Sat by Pulse 92 L 94 L Oximetry 11/22/22 11/22/22 11/22/22 02:30 02:40 02:50 Temperature Pulse Rate 0 L 98 104 H Respiratory 29 H 21 Rate Blood Pressure 114/66 114/66 114/66 O2 Sat by Pulse 94 L 94 L Oximetry 11/22/22 11/22/22 11/22/22 03:00 03:10 03:20 Temperature Pulse Rate 93 96 Respiratory 29 H Rate Blood Pressure 114/66 120/77 120/77 O2 Sat by Pulse 94 L 93 L 93 L Oximetry 11/22/22 11/22/22 11/22/22 03:30 03:40 03:50 Temperature Pulse Rate 98 97 98 Respiratory 26 H Rate Blood Pressure 120/77 120/77 120/77 O2 Sat by Pulse 92 L 93 L 93 L Oximetry 11/22/22 11/22/22 11/22/22 04:00 04:10 04:20 Temperature Pulse Rate 96 96 Respiratory Rate Blood Pressure 120/77 129/86 129/86 O2 Sat by Pulse 94 L 89 L 95 Oximetry 11/22/22 11/22/22 11/22/22 04:30 04:40 04:50 Temperature Pulse Rate 98 95 Respiratory 25 H 11 L Rate Blood Pressure 129/86 129/86 129/86 O2 Sat by Pulse 94 L 94 L Oximetry 11/22/22 11/22/22 05:00 05:10 Temperature Pulse Rate 98 94 Respiratory 8 L 18 Rate Blood Pressure 129/86 134/91 O2 Sat by Pulse 94 L 95 Oximetry Medical Decision Making - Lab Data Result diagrams: 11/22/22 00:38 11/22/22 00:38 <Charlette Gracia - Last Filed: 11/22/22 04:22> - Lab Data Result diagrams: 11/22/22 00:38 11/22/22 00:38 <Kel Ramirez - Last Filed: 11/22/22 06:07> - Medical Decision Making EKG taken at 01:04, intermitted by me Sinus tachycardia, nonspecific T-wave abnormality Ventricular rate 105, FL interval 128, QRS duration 102, QTC 422 Was pt. sent in by a medical professional or institution (, VAN, CHIEF TALENT OFFICER, urgent care, hospital, or assisted...) When possible be specific @ -[No] Did you speak to anyone other than the patient for history (EMS, parent, family, police, friend...)? What history was obtained from this source @ -[No] Did you review nursing and triage notes (agree or disagree)? Why? @ -[I reviewed and agree with nursing and triage notes] Were old charts reviewed (outside hosp., previous admission, EMS record, old EKG, old radiological studies, urgent care reports/EKG's, assisted records)? Report findings @ -[No old charts were reviewed] Differential Diagnosis (chest pain, altered mental status, abdominal pain women, abdominal pain men, vaginal bleeding, weakness, fever, dyspnea, syncope, headache, dizziness, GI bleed, back pain, seizure, CVA, palpatations, mental health)? @ -Differential Dyspnea: Coronary syndrome, arrhythmia, tamponade, asthma, COPD, pulmonary embolism, pneumonia, pneumothorax, pulmonary effusion, anaphylaxis, diabetic ketoacidosis, flailed chest, pulmonary contusion, diaphragmatic rupture, anemia, neuromuscular, this is not meant to be an all-inclusive list. EKG interpreted by me (3pts min.). @ -[As above] X-rays interpreted by me (1pt min.). @ -Yes, chest x-ray shows mild pulmonary edema CT interpreted by me (1pt min.). @ -[None done] U/S interpreted by me (1pt. min.). @ -[None done] What testing was considered but not performed or refused? (CT, X-rays, U/S, labs)? Why? @ -[None] What meds were considered but not given or refused? Why? @ -[None] Did you discuss the management of the patient with other professionals (professionals i.e. , PA, CHIEF TALENT OFFICER, lab, RT, psych nurse, social worker psychiatric, filling mixer, teacher, special technical operations officer, caser shoe parts)? Give summary @ -[No] Was smoking cessation discussed for >3mins.? @ -[No] Was critical care preformed (if so, how long)? @ -[No] Were there social determinants of health that impacted care today? How? (Homelessness, low income, unemployed, alcoholism, drug addiction, transportation, low edu. Level, literacy, decrease access to med. care, mcc, rehab)? @ -[No] Was there de-escalation of care discussed even if they declined (Discuss DNR or withdrawal of care, Hospice)? DNR status @ -[No] What co-morbidities impacted this encounter? (DM, HTN, Smoking, COPD, CAD, Cancer, CVA, ARF, Chemo, Hep., AIDS, mental health diagnosis, sleep apnea, morbid obesity)? @ -[None] Was patient admitted / discharged? Hospital course, mention meds given and rout e, prescriptions, significant lab abnormalities, going to OR and other pertinent info. @ -Admitted. Patient is hypoxic at 92% room air. He was placed on 2 L nasal cannula oxygen remained stable. No evidence of respiratory distress. Resting comfortably. Afebrile. Laboratory studies obtained. There is a leukocytosis of 15.4. There is mild hypokalemia 3.1. COVID-19, RSV, influenza not detected. Potassium supplemented. Chest x-ray shows mild pulmonary edema. Further lab oratory studies were obtained. Troponin and BNP within normal limits. Patient care given to Dr. Ramirez at 4:15. Undiagnosed new problem with uncertain prognosis? @ -[No] Drug Therapy requiring intensive monitoring for toxicity (Heparin, Nitro, Insulin, Cardizem)? @ -[No] Were any procedures done? @ -[No] Diagnosis/symptom? @ -[default] Acute, or Chronic, or Acute on Chronic? @ -[default] Uncomplicated (without systemic symptoms) or Complicated (systemic symptoms)? @ -[default] Side effects of treatment? @ -[No] Exacerbation, Progression, or Severe Exacerbation? @ -[No] Poses a threat to life or bodily function? How? (Chest pain, [place], CA, pneumonia, PE, COPD, DKA, ARF, appy, cholecystitis, CVA, Diverticulitis, Homicidal, Suicidal, threat to staff... and all critical care pts) @ -[No] (Charlette Gracia) Patient's laboratory results of d-dimer. Presents with hypoxic respiratory failure, suspected infectious etiology. Workup thus far is within acceptable limits, with patient having a mild leukocytosis concerning for infection, mild hypokalemia at 3.1 which will be replenished, as well as a undetectable troponin and BNP within acceptable limits. Vital signs are negative. D-dimer is pending and was found be positive and therefore CT angiogram to evaluate for PE was obtained. CT PE eventually returned negative for PE but does show multifocal pneumonia. Patient started on IV Rocephin and azithromycin. We will continue with nasal cannula oxygen at this time, and I updated the patient. He was in agreement this plan. He'll be made to the hospital in stable condition. Admitted under Dr. Booth of [facility] accepted the patient. Pulmonology consulted for the patient's hypoxic respiratory failure. Diagnosis/symptom? @ -Multifocal pneumonia, hypoxic respiratory failure Acute, or Chronic, or Acute on Chronic? @ -Acute Uncomplicated (without systemic symptoms) or Complicated (systemic symptoms)? @ -Complicated Side effects of treatment? @ -none Exacerbation, Progression, or Severe Exacerbation] @ -no Poses a threat to life or bodily function? @ -Yes (Kel Ramirez) - Lab Data Lab Results 11/22/22 11/22/22 11/22/22 Range/Units 00:38 00:38 00:38 WBC 15.4 H (3.8-10.6) k/uL RBC 4.77 (4.30-5.90) m/uL Hgb 12.7 L (13.0-17.5) gm/dL Hct 37.1 L (39.0-53.0) % MCV 77.8 L (80.0-100.0) fL MCH 26.6 (25.0-35.0) pg MCHC 34.2 (31.0-37.0) g/dL RDW 14.5 (11.5-15.5) % Plt Count 186 (150-450) k/uL MPV 8.5 Neutrophils % 87 % Lymphocytes % 6 % Monocytes % 5 % Eosinophils % 0 % Basophils % 0 % Neutrophils # 13.4 H (1.3-7.7) k/uL Lymphocytes # 0.9 L (1.0-4.8) k/uL Monocytes # 0.8 (0-1.0) k/uL Eosinophils # 0.1 (0-0.7) k/uL Basophils # 0.0 (0-0.2) k/uL Poikilocytosis Slight PT (9.0-12.0) sec INR (<1.2) APTT (22.0-30.0) sec D-Dimer (<0.60) mg/L FEU Sodium 131 L (137-145) mmol/L Potassium 3.1 L (3.5-5.1) mmol/L Chloride 93 L (98-107) mmol/L Carbon Dioxide 24 (22-30) mmol/L Anion Gap 14 mmol/L BUN 13 (9-20) mg/dL Creatinine 0.79 (0.66-1.25) mg/dL Est GFR (CKD-EPI)AfAm >90 (>60 ml/min/1.73 sqM) Est GFR (CKD-EPI)NonAf >90 (>60 ml/min/1.73 sqM) Glucose 148 H (74-99) mg/dL Calcium 8.3 L (8.4-10.2) mg/dL Total Bilirubin 1.1 (0.2-1.3) mg/dL AST 39 (17-59) U/L ALT 33 (4-49) U/L Alkaline Phosphatase 136 H (38-126) U/L Troponin I (0.000-0.034) ng/mL NT-Pro-B Natriuret Pep 294 pg/mL Total Protein 6.5 (6.3-8.2) g/dL Albumin 3.6 (3.5-5.0) g/dL Influenza Type A (PCR) (Not Detectd) Influenza Type B (PCR) (Not Detectd) RSV (PCR) (Not Detectd) SARS-CoV-2 (PCR) (Not Detectd) 11/22/22 11/22/22 11/22/22 Range/Units 01:22 03:00 03:00 WBC (3.8-10.6) k/uL RBC (4.30-5.90) m/uL Hgb (13.0-17.5) gm/dL Hct (39.0-53.0) % MCV (80.0-100.0) fL MCH (25.0-35.0) pg MCHC (31.0-37.0) g/dL RDW (11.5-15.5) % Plt Count (150-450) k/uL MPV Neutrophils % % Lymphocytes % % Monocytes % % Eosinophils % % Basophils % % Neutrophils # (1.3-7.7) k/uL Lymphocytes # (1.0-4.8) k/uL Monocytes # (0-1.0) k/uL Eosinophils # (0-0.7) k/uL Basophils # (0-0.2) k/uL Poikilocytosis PT 10.5 (9.0-12.0) sec INR 1.0 (<1.2) APTT 24.6 (22.0-30.0) sec D-Dimer (<0.60) mg/L FEU Sodium (137-145) mmol/L Potassium (3.5-5.1) mmol/L Chloride (98-107) mmol/L Carbon Dioxide (22-30) mmol/L Anion Gap mmol/L BUN (9-20) mg/dL Creatinine (0.66-1.25) mg/dL Est GFR (CKD-EPI)AfAm (>60 ml/min/1.73 sqM) Est GFR (CKD-EPI)NonAf (>60 ml/min/1.73 sqM) Glucose (74-99) mg/dL Calcium (8.4-10.2) mg/dL Total Bilirubin (0.2-1.3) mg/dL AST (17-59) U/L ALT (4-49) U/L Alkaline Phosphatase (38-126) U/L Troponin I <0.012 (0.000-0.034) ng/mL NT-Pro-B Natriuret Pep pg/mL Total Protein (6.3-8.2) g/dL Albumin (3.5-5.0) g/dL Influenza Type A (PCR) Not Detected (Not Detectd) Influenza Type B (PCR) Not Detected (Not Detectd) RSV (PCR) Not Detected (Not Detectd) SARS-CoV-2 (PCR) Not Detected (Not Detectd) 11/22/22 Range/Units 03:00 WBC (3.8-10.6) k/uL RBC (4.30-5.90) m/uL Hgb (13.0-17.5) gm/dL Hct (39.0-53.0) % MCV (80.0-100.0) fL MCH (25.0-35.0) pg MCHC (31.0-37.0) g/dL RDW (11.5-15.5) % Plt Count (150-450) k/uL MPV Neutrophils % % Lymphocytes % % Monocytes % % Eosinophils % % Basophils % % Neutrophils # (1.3-7.7) k/uL Lymphocytes # (1.0-4.8) k/uL Monocytes # (0-1.0) k/uL Eosinophils # (0-0.7) k/uL Basophils # (0-0.2) k/uL Poikilocytosis PT (9.0-12.0) sec INR (<1.2) APTT (22.0-30.0) sec D-Dimer 1.19 H (<0.60) mg/L FEU Sodium (137-145) mmol/L Potassium (3.5-5.1) mmol/L Chloride (98-107) mmol/L Carbon Dioxide (22-30) mmol/L Anion Gap mmol/L BUN (9-20) mg/dL Creatinine (0.66-1.25) mg/dL Est GFR (CKD-EPI)AfAm (>60 ml/min/1.73 sqM) Est GFR (CKD-EPI)NonAf (>60 ml/min/1.73 sqM) Glucose (74-99) mg/dL Calcium (8.4-10.2) mg/dL Total Bilirubin (0.2-1.3) mg/dL AST (17-59) U/L ALT (4-49) U/L Alkaline Phosphatase (38-126) U/L Troponin I (0.000-0.034) ng/mL NT-Pro-B Natriuret Pep pg/mL Total Protein (6.3-8.2) g/dL Albumin (3.5-5.0) g/dL Influenza Type A (PCR) (Not Detectd) Influenza Type B (PCR) (Not Detectd) RSV (PCR) (Not Detectd) SARS-CoV-2 (PCR) (Not Detectd) Disposition <Charlette Gracia - Last Filed: 11/22/22 04:22> Time of Disposition: 05:45 <Kel Ramirez - Last Filed: 11/22/22 06:07> Clinical Impression: Acute respiratory failure with hypoxia, Multifocal pneumonia Disposition: ADMITTED IP TO THIS HOSP Condition: Stable Referrals: Alvarez Peters MD [Primary Care Provider] - 1-2 days
[2022-11-22 01:22] LABS: ALT 33 U/L (4-49); AST 39 U/L (17-59); African American GFR (CKD) >90 (>60 ml/min/1.73 sqM); Albumin 3.6 g/dL (3.5-5.0); Alkaline Phosphatase 136 U/L (38-126); Anion Gap 14 mmol/L; Blood Urea Nitrogen 13 mg/dL (9-20); Calcium 8.3 mg/dL (8.4-10.2); Carbon Dioxide 24 mmol/L (22-30); Chloride 93 mmol/L (98-107); Glucose 148 mg/dL (74-99); Non-African American GFR(CKD) >90 (>60 ml/min/1.73 sqM); Potassium 3.1 mmol/L (3.5-5.1); Sodium 131 mmol/L (137-145); Total Bilirubin 1.1 mg/dL (0.2-1.3); Total Protein 6.5 g/dL (6.3-8.2)
[2022-11-22] MEDS ORDERED: POTASSIUM CHLORIDE ER 20 MEQ TAB.ER PO STA (01:54)
--- NOTE | 2022-11-22 02:25 | XR ---
EXAM: XR Chest, 2 Views CLINICAL HISTORY: ITS.REASON XR Reason: productive cough TECHNIQUE: Frontal and lateral views of the chest. COMPARISON: 12/09/2013 FINDINGS: Lungs: Elevated diaphragms, small lung volumes. Subsegmental atelectasis. Ill-defined bronchovascular markings. Pleural space: Unremarkable. No pneumothorax. Heart: Unremarkable. No cardiomegaly. Mediastinum: Unremarkable. Bones/joints: Unremarkable. IMPRESSION: Probable mild pulmonary edema.
[2022-11-22 03:20] LABS: Partial Thromboplastin Time 24.6 sec (22.0-30.0); Prothrombin Time 10.5 sec (9.0-12.0)
[2022-11-22] MEDS ORDERED: ONDANSETRON 4 MG/2 ML VIAL IVP PRN (04:03)
--- NOTE | 2022-11-22 05:59 | CT ---
EXAM: CT Angiography Chest With Intravenous Contrast CLINICAL HISTORY: ITS.REASON CT Reason: dyspnea, elevated dimer TECHNIQUE: Axial computed tomographic angiography images of the chest with intravenous contrast. CTDI is This CT exam was performed using one or more of the following dose reduction techniques: automated exposure control, adjustment of the mA and/or kV according to patient size, and/or use of iterative reconstruction technique. MIP reconstructed images were created and reviewed. COMPARISON: 10/22/2016 FINDINGS: Pulmonary arteries: Unremarkable. No pulmonary embolism. Aorta: No acute findings. No thoracic aortic aneurysm. Lungs: Dense multisegmental left lower lobe consolidation. Patchy scattered areas of airspace opacities. Pleural space: Unremarkable. No pleural effusion or pneumothorax seen. Heart: Unremarkable. No cardiomegaly. No significant pericardial effusion. No evidence of RV dysfunction. Mediastinum: Scattered mediastinal and hilar lymph nodes, including 18 mm left hilar lymph node. Bones/joints: No acute fracture. No dislocation. Soft tissues: Unremarkable. Lymph nodes: Unremarkable. No enlarged lymph nodes. Other findings: 46 mGy and DLP is 1182.8 mGy-cm. IMPRESSION: 1. No significant pulmonary embolism seen. 2. Probable multifocal pneumonia and reactive adenopathy.
[2022-11-22] MEDS ORDERED: AZITHROMYCIN 500 MG in SODIUM CHLORIDE 0.9% 250 ML IVPB STA (06:00)
[2022-11-22] MEDS ORDERED: NALOXONE 0.4 MG/ML 1 ML VIAL IV PRN (06:02)
[2022-11-22] MEDS ORDERED: AZITHROMYCIN 500 MG in SODIUM CHLORIDE 0.9% 250 ML IVPB ONE (06:04)
--- NOTE | 2022-11-22 06:32 | P.HPIM ---
History of Present Illness H&P Date: 11/22/22 Patient is a 62-year-old male with a PMH of stage II colon cancer status post resection and chemotherapy, and hypertension who presents to the emergency room with complaints of cough, fever, nausea, vomiting. The patient reports that the symptoms started this past Thursday and have persisted since then. He was seen at his PCPs office and received some antibiotic injection as per the at the bedside. The patient reports that his cough is productive of brownish phlegm and notes some pleuritic anterior chest discomfort due to excessive coughing. He reports subjective fever. ED documentation reviewed and case discussed with ED provider. CT angiogram of chest in the emergency room revealed multifocal pneumonia with reactive adenopathy with no evidence of PE. EKG revealed sinus tachycardia at [address]/T-wave changes are as reviewed by me. Laboratory evaluation was remarkable for leukocytosis of 15.4, hemoglobin 12.7, sodium 131, potassium 3.1, d-dimer 1.19, , troponin less than 0.012 with influenza, RSV, and coronavirus testing negative. Vital signs were reviewed with SpO2 92% on room air upon presentation with pulse 111. Review of systems: Pertinent positives and negatives as discussed in HPI, a complete review of systems was performed and all other systems are negative. Physical examination: Vital signs reviewed General: non toxic, no distress, appears at stated age, normal weight Derm: no unusual rashes/lesions, warm Head: atraumatic, normocephalic, symmetric Eyes: EOMI, no lid lag, anicteric sclera, pupils equal round reactive to light ENT: Nose and ears atraumatic Neck: No cervical lymphadenopathy, trachea midline, supple Mouth: no lip lesion, mucus membranes moist Cardiovascular: S1S2 reg, no murmur, positive dorsalis pedis pulse bilateral, no edema Lungs: Scattered coarse breath sounds, no rhonchi, no rales, no accessory muscle use Abdominal: soft, nontender to palpation, no guarding Ext: muscle strength 5 out of 5 in all 4 extremities grossly, no gross muscle atrophy, no contractures, Neuro: CN II-XI grossly intact, no gross focal neuro deficits Psych: Alert, oriented, appropriate affect Assessment: Sepsis secondary to community acquired pneumonia Hypokalemia Hypochloremic hyponatremia, likely due to ongoing nausea and vomiting Plan: Continue with antibiotics including ceftriaxone and azithromycin Replace potassium and monitor Continue with IV fluids normal saline 130 mL/hr F/u legionella testing Pulmonary consulted Follow-up blood cultures DVT prophylaxis: Heparin subcu The patient is admitted with an anticipated greater than 2 midnight stay for evaluation of pneumonia CODE STATUS: Full Code Discussed with: Patient Anticipated discharge place: Home Past Medical History Past Medical History: Cancer, Hypertension Additional Past Medical History / Comment(s): HX COLON Cancer, gout, kidney stones History of Any Multi-Drug Resistant Organisms: None Reported Past Surgical History: Bowel Resection Additional Past Surgical History / Comment(s): PORT A CATH/later removed , lithotripsy Past Anesthesia/Blood Transfusion Reactions: No Reported Reaction Past Psychological History: No Psychological Hx Reported Smoking Status: Never smoker Past Alcohol Use History: None Reported Past Drug Use History: None Reported - Past Family History Father History Unknown: Yes Mother History Unknown: Yes Sister(s) Family Medical History: Cancer Additional Family Medical History / Comment(s): TONGUE Medications and Allergies Home Medications Medication Instructions Recorded Confirmed Type hydroCHLOROthiazide [Hydrodiuril] 25 mg PO DAILY 12/08/13 07/30/21 History lisinopriL [Zestril] 5 mg PO DAILY 01/05/18 07/30/21 History ALPRAZolam [Xanax] 0.25 mg PO DAILY PRN 04/17/20 07/30/21 History Iron 27 mg PO DAILY 07/30/21 07/30/21 History [place]-3 Fatty Acids/Fish Oil [Fish 1 each PO DAILY 07/30/21 07/30/21 History Oil 1,000 mg Softgel] allopurinoL [Zyloprim] 100 mg PO DAILY 07/30/21 07/30/21 History Allergies Allergy/AdvReac Type Severity Reaction Status Date / Time codeine AdvReac Nausea & Verified 11/21/22 23:44 [From Tylenol-Codeine #3] Vomiting hydrocodone [From [place]] AdvReac constipatio Verified 11/21/22 23:44 n Physical Exam Vitals: Vital Signs Temp Pulse Resp BP Pulse Ox 11/22/22 05:10 94 18 134/91 95 11/22/22 05:00 98 8 L 129/86 94 L 11/22/22 04:50 95 11 L 129/86 94 L 11/22/22 04:40 98 25 H 129/86 94 L 11/22/22 04:30 129/86 11/22/22 04:20 129/86 95 11/22/22 04:10 96 129/86 89 L 11/22/22 04:00 96 120/77 94 L 11/22/22 03:50 98 26 H 120/77 93 L 11/22/22 03:40 97 120/77 93 L 11/22/22 03:30 98 120/77 92 L 11/22/22 03:20 96 120/77 93 L 11/22/22 03:10 93 120/77 93 L 11/22/22 03:00 29 H 114/66 94 L 11/22/22 02:50 104 H 114/66 94 L 11/22/22 02:40 98 21 114/66 94 L 11/22/22 02:30 0 L 29 H 114/66 11/22/22 02:22 102 H 16 123/77 11/22/22 01:23 98.2 F 101 H 18 123/77 94 L 11/21/22 23:44 98.3 F 111 H 22 134/83 92 L Intake and Output 11/21/22 11/21/22 11/22/22 14:59 22:59 06:59 Other: Weight 124.738 kg Results CBC & Chem 7: 11/22/22 00:38 11/22/22 00:38 Labs: Abnormal Lab Results - Last 24 Hours (Table) 11/22/22 11/22/22 11/22/22 Range/Units 00:38 00:38 03:00 WBC 15.4 H (3.8-10.6) k/uL Hgb 12.7 L (13.0-17.5) gm/dL Hct 37.1 L (39.0-53.0) % MCV 77.8 L (80.0-100.0) fL Neutrophils # 13.4 H (1.3-7.7) k/uL Lymphocytes # 0.9 L (1.0-4.8) k/uL D-Dimer 1.19 H (<0.60) mg/L FEU Sodium 131 L (137-145) mmol/L Potassium 3.1 L (3.5-5.1) mmol/L Chloride 93 L (98-107) mmol/L Glucose 148 H (74-99) mg/dL Calcium 8.3 L (8.4-10.2) mg/dL Alkaline Phosphatase 136 H (38-126) U/L
[2022-11-22] MEDS ORDERED: hydroCHLOROthiazide 25 MG TAB PO SCH (09:00)
[2022-11-22] MEDS: lisinopriL 5 MG TAB PO SCH ×2 (09:33→11:57)
[2022-11-22] MEDS: HEPARIN SODIUM,PORCINE/PF 5,000 UNIT/0.5 ML SYRINGE SQ SCH ×3 (09:35→23:53)
--- NOTE | 2022-11-22 12:42 | P.CNPUL ---
History of Present Illness Consult date: 11/22/22 Reason for consult: pneumonia History of present illness: A 62-year-old male patient, works for the school system, developed increased cough over the past 4-5 days. The patient has no previous history of lung disease. No asthma. No emphysema. No recurrent pneumonias. His cough progressively got worse and the patient had some brown sputum. No hemoptysis. Was having some pleuritic left posterior chest pain. He also felt feverish. He saw his primary care physician. He was given a dose of IM antibiotics in the office and following that he was started on doxycycline. However, his condition got worse and he ended up coming into the hospital for further workup. Chest x- ray was done. Computed tomography scan of the chest showed no central pulmonary embolism. There was patchy multifocal pneumonia and significant amount of consolidation of the left lower lung base more so posteriorly. No reported aspiration. The white cell count 15.4 with a hemoglobin 12.7 and a d-dimer is at 1.1. Sodium is at 131. Troponins at 0.01. Covid 19, influenza and RSV were negative. Pulse ox 92% on room air oxygen. The patient was started on Rocephin and Zithromax. Sputum cultures being collected. The patient also has history of colon cancer stage II postresection adjuvant chemotherapy. Review of Systems Constitutional: Reports fatigue, Reports fever Eyes: denies as per HPI, denies blurred vision, denies bulging eye, denies decreased vision, denies diplopia, denies discharge, denies dry eye, denies irritation, denies itching, denies pain, denies photophobia, denies loss of peripheral vision, denies loss of vision, denies tunnel vision/blind spots Ears: deny: decreased hearing, ear discharge, earache, tinnitus Ears, nose, mouth and throat: Reports as per HPI Breasts: absent: as per HPI, gynecomastia Cardiovascular: Reports as per HPI Respiratory: Reports cough Gastrointestinal: Reports as per HPI Genitourinary: Reports as per HPI Musculoskeletal: Reports as per HPI Musculoskeletal: absent: ankle pain, ankle stiffness, ankle swelling Integumentary: Reports as per HPI Neurological: Reports as per HPI Psychiatric: Reports as per HPI Endocrine: Reports as per HPI Hematologic/Lymphatic: Reports as per HPI Allergic/Immunologic: Reports as per HPI Past Medical History Past Medical History: Cancer, Hypertension Additional Past Medical History / Comment(s): HX COLON Cancer, gout, kidney stones History of Any Multi-Drug Resistant Organisms: None Reported Past Surgical History: Bowel Resection Additional Past Surgical History / Comment(s): PORT A CATH/later removed , lithotripsy Past Anesthesia/Blood Transfusion Reactions: No Reported Reaction Past Psychological History: No Psychological Hx Reported Smoking Status: Never smoker Past Alcohol Use History: None Reported Past Drug Use History: None Reported - Past Family History Father History Unknown: Yes Mother History Unknown: Yes Sister(s) Family Medical History: Cancer Additional Family Medical History / Comment(s): TONGUE Medications and Allergies Home Medications Medication Instructions Recorded Confirmed Type hydroCHLOROthiazide [Hydrodiuril] 25 mg PO DAILY 12/08/13 11/22/22 History lisinopriL [Zestril] 5 mg PO HS 01/05/18 11/22/22 History [place]-3 Fatty Acids/Fish Oil [Fish 1 cap PO DAILY 07/30/21 11/22/22 History Oil 1,000 mg Softgel] allopurinoL [Zyloprim] 100 mg PO DAILY 07/30/21 11/22/22 History Atorvastatin [Lipitor] 40 mg PO HS 11/22/22 11/22/22 History Doxycycline Monohydrate 100 mg PO BID 11/22/22 11/22/22 History Ferrous Gluconate 240 mg PO DAILY 11/22/22 11/22/22 History Ondansetron Odt [Zofran Odt] 4 mg PO Q8HR PRN 11/22/22 11/22/22 History Allergies Allergy/AdvReac Type Severity Reaction Status Date / Time codeine AdvReac Nausea & Verified 11/22/22 12:03 [From Tylenol-Codeine #3] Vomiting hydrocodone [From [place]] AdvReac constipatio Verified 11/22/22 12:03 n Physical Exam Vitals: Vital Signs Temp Pulse Resp BP Pulse Ox 11/22/22 05:10 94 18 134/91 95 11/22/22 05:00 98 8 L 129/86 94 L 11/22/22 04:50 95 11 L 129/86 94 L 11/22/22 04:40 98 25 H 129/86 94 L 11/22/22 04:30 129/86 11/22/22 04:20 129/86 95 11/22/22 04:10 96 129/86 89 L 11/22/22 04:00 96 120/77 94 L 11/22/22 03:50 98 26 H 120/77 93 L 11/22/22 03:40 97 120/77 93 L 11/22/22 03:30 98 120/77 92 L 11/22/22 03:20 96 120/77 93 L 11/22/22 03:10 93 120/77 93 L 11/22/22 03:00 29 H 114/66 94 L 11/22/22 02:50 104 H 114/66 94 L 11/22/22 02:40 98 21 114/66 94 L 11/22/22 02:30 0 L 29 H 114/66 11/22/22 02:22 102 H 16 123/77 11/22/22 01:23 98.2 F 101 H 18 123/77 94 L 11/21/22 23:44 98.3 F 111 H 22 134/83 92 L Intake and Output 11/21/22 11/22/22 11/22/22 22:59 06:59 14:59 Other: Weight 124.738 kg General: non toxic, no distress, appears at stated age, normal weight Derm: no unusual rashes/lesions, warm Head: atraumatic, normocephalic, symmetric Eyes: EOMI, no lid lag, anicteric sclera, pupils equal round reactive to light ENT: Nose and ears atraumatic Neck: No cervical lymphadenopathy, trachea midline, supple Mouth: no lip lesion, mucus membranes moist Cardiovascular: S1S2 reg, no murmur, positive dorsalis pedis pulse bilateral, no edema Lungs: Scattered coarse breath sounds, no rhonchi, no rales, no accessory muscle use Abdominal: soft, nontender to palpation, no guarding Ext: muscle strength 5 out of 5 in all 4 extremities grossly, no gross muscle atrophy, no contractures, Neuro: CN II-XI grossly intact, no gross focal neuro deficits Psych: Alert, oriented, appropriate affect Results - Laboratory Findings CBC and BMP: 11/22/22 00:38 11/22/22 00:38 PT/INR, D-dimer PT 10.5 sec (9.0-12.0) 11/22/22 03:00 INR 1.0 (<1.2) 11/22/22 03:00 D-Dimer 1.19 mg/L FEU (<0.60) H 11/22/22 03:00 Abnormal lab findings: Abnormal Labs 11/22/22 11/22/22 11/22/22 00:38 00:38 03:00 WBC 15.4 H Hgb 12.7 L Hct 37.1 L MCV 77.8 L Neutrophils # 13.4 H Lymphocytes # 0.9 L D-Dimer 1.19 H Sodium 131 L Potassium 3.1 L Chloride 93 L Glucose 148 H Calcium 8.3 L Alkaline Phosphatase 136 H - Diagnostic Findings CT scan - chest: image reviewed Assessment and Plan Plan: Acute community-acquired multifocal pneumonia worse in the left lower lobe. The patient has patchy infiltrate with significant consolidation of the left lung base Acute hypoxic respiratory failure secondary to above, currently on room air oxygen with a pulse ox of 92% Acute leukocytosis Cough secondary to above Hypovolemic hyponatremia probably related to some nausea and emesis that occurred prior to hospitalization History of colon cancer History of hypertension Plan Check pro calcitonin level Check Legionella urine antigen Check sputum Gram stain and culture Agree on IV Rocephin and Zithromax Supplemented oxygen if needed We'll continue monitoring the patient's oxygenation and repeat chest x-ray within next 24-48 hours We'll continue to follow. Heparin subcu portably prophylaxis. Blood culture was sent.
[2022-11-22] MEDS ORDERED: CYCLOBENZAPRINE 10 MG TAB PO PRN (17:50)
[2022-11-22] MEDS: KETOROLAC 15 MG/ML 1 ML VIAL IVP PRN (18:42)
[2022-11-22] MEDS: ATORVASTATIN 40 MG TAB PO SCH (21:46)
[2022-11-22] MEDS: ALPRAZolam 0.25 MG TAB PO PRN (21:50)
[2022-11-23] MEDS: HEPARIN SODIUM,PORCINE/PF 5,000 UNIT/0.5 ML SYRINGE SQ SCH ×2 (09:38→17:24)
[2022-11-23] MEDS: lisinopriL 5 MG TAB PO SCH (09:38)
[2022-11-23] MEDS: allopurinoL 100 MG TAB PO SCH (09:38)
[2022-11-23] MEDS: AZITHROMYCIN 500 MG in SODIUM CHLORIDE 0.9% 250 ML IVPB SCH ×2 (09:39→10:45)
[2022-11-23 10:39] LABS: African American GFR (CKD) >90 (>60 ml/min/1.73 sqM); Anion Gap 11 mmol/L; Blood Urea Nitrogen 14 mg/dL (9-20); Calcium 7.9 mg/dL (8.4-10.2); Carbon Dioxide 25 mmol/L (22-30); Chloride 101 mmol/L (98-107); Glucose 110 mg/dL (74-99); Non-African American GFR(CKD) >90 (>60 ml/min/1.73 sqM); Sodium 137 mmol/L (137-145)
[2022-11-23 10:45] LABS: Potassium 3.8 mmol/L (3.5-5.1)
--- NOTE | 2022-11-23 11:07 | P.PN ---
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 The patient has no previous history of lung disease. No asthma. No emphysema. No recurrent pneumonias. His cough progressively got worse and the patient had some brown sputum. No hemoptysis. Was having some pleuritic left posterior chest pain. He also felt feverish. He saw his primary care physician. He was given a dose of IM antibiotics in the office and following that he was started on doxycycline. However, his condition got worse and he ended up coming into the hospital for further workup. Chest x- ray was done. Computed tomography scan of the chest showed no central pulmonary embolism. There was patchy multifocal pneumonia and significant amount of consolidation of the left lower lung base more so posteriorly. No reported aspiration. The white cell count 15.4 with a hemoglobin 12.7 and a d-dimer is at 1.1. Sodium is at 131. Troponins at 0.01. Covid 19, influenza and RSV were negative. Pulse ox 92% on room air oxygen. The patient was started on Rocephin and Zithromax. Sputum cultures being collected. The patient also has history of colon cancer stage II postresection adjuvant chemotherapy. On today's evaluation of 11/23/2022, the patient is feeling much better and and his cough has subsided. He continues to have some discomfort along the left posterior chest area. He remains on Rocephin and Zithromax. Is afebrile. Sputum sample is collected and that is also still pending for now. His blood work shows a sodium level of 137, BUN is 40 with a creatinine of 0.7 and a pro- calcitonin level is at 0.75. Legionella urine antigen still pending. Objective - Vital Signs Vital signs: Vital Signs Temp 97.6 F 11/23/22 07:36 Pulse 78 11/23/22 07:36 Resp 18 11/23/22 07:36 BP 109/72 11/23/22 07:36 Pulse Ox 96 11/23/22 07:36 FiO2 Intake & Output 11/22/22 11/23/22 11/23/22 18:59 06:59 18:59 Weight 124.738 kg Other: Voiding Method Toilet Urinal # Voids 1 - Exam General: non toxic, no distress, appears at stated age, normal weight Derm: no unusual rashes/lesions, warm Head: atraumatic, normocephalic, symmetric Eyes: EOMI, no lid lag, anicteric sclera, pupils equal round reactive to light ENT: Nose and ears atraumatic Neck: No cervical lymphadenopathy, trachea midline, supple Mouth: no lip lesion, mucus membranes moist Cardiovascular: S1S2 reg, no murmur, positive dorsalis pedis pulse bilateral, no edema Lungs: Scattered coarse breath sounds, no rhonchi, no rales, no accessory muscle use Abdominal: soft, nontender to palpation, no guarding Ext: muscle strength 5 out of 5 in all 4 extremities grossly, no gross muscle atrophy, no contractures, Neuro: CN II-XI grossly intact, no gross focal neuro deficits Psych: Alert, oriented, appropriate affect - Labs CBC & Chem 7: 11/22/22 00:38 11/23/22 06:11 Labs: Abnormal Lab Results - Last 24 Hours (Table) 11/22/22 Range/Units 11:10 Procalcitonin 0.75 H (0.02-0.09) ng/mL Microbiology - Last 24 Hours (Table) 11/22/22 12:50 Gram Stain - Preliminary Sputum Sputum Culture - Preliminary Assessment and Plan Plan: Acute community-acquired multifocal pneumonia worse in the left lower lobe. The patient has patchy infiltrate with significant consolidation of the left lung base Acute hypoxic respiratory failure secondary to above, currently on room air oxygen with a pulse ox of 92% Acute leukocytosis Cough secondary to above Hypovolemic hyponatremia probably related to some nausea and emesis that occurred prior to hospitalization History of colon cancer History of hypertension Plan Clinically slightly improved compared to yesterday Check pro calcitonin level is at 0.75 Check Legionella urine antigen pending Check sputum Gram stain and culture, collected and is also still pending Agree on IV Rocephin and Zithromax Supplemented oxygen if needed Chest x-ray to be done tomorrow with PA and lateral views We'll continue to follow. Heparin subcu portably prophylaxis. Blood culture was sent.
[2022-11-23 12:26] LABS: Basophils # (A) 0.1 k/uL (0-0.2); Basophils % (A) 1 %; Eosinophils # (A) 0.1 k/uL (0-0.7); Eosinophils % (A) 1 %; HCT 39.9 % (39.0-53.0); HGB 13.1 gm/dL (13.0-17.5); Lymphocytes % (A) 9 %; MCH 27.1 pg (25.0-35.0); MCHC 32.7 g/dL (31.0-37.0); Mean Platelet Volume 10.4; Monocytes # (A) 0.8 k/uL (0-1.0); Monocytes % (A) 8 %; Neutrophils % (A) 80 %; Platelet Count 167 k/uL (150-450); RBC 4.82 m/uL (4.30-5.90); RDW 15.1 % (11.5-15.5); WBC 11.2 k/uL (3.8-10.6)
[2022-11-23 12:27] LABS: MCV 82.9 fL (80.0-100.0)
--- NOTE | 2022-11-23 13:50 | P.PN ---
Subjective Progress Note Date: 11/23/22 Patient is a 62-year-old male with a PMH of stage II colon cancer status post resection and chemotherapy, and hypertension who presents to the emergency room with complaints of cough, fever, nausea, vomiting. CT angiogram of chest in the emergency room revealed multifocal pneumonia with reactive adenopathy with no evidence of PE. EKG revealed sinus tachycardia at [address]/T-wave changes are as reviewed by me. Laboratory evaluation was remarkable for leukocytosis of 15.4, hemoglobin 12.7, sodium 131, potassium 3.1, d-dimer 1.19, , troponin less than 0.012 with influenza, RSV, and coronavirus testing negative. Vital signs were reviewed with SpO2 92% on room air upon presentation with pulse 111. Patient was started on Rocephin and azithromycin and admitted for treatment of pneumonia. 11/23 Patient was seen and examined. No acute events overnight. Patient reports shortness of breath especially with exertion. Symptoms have improved slightly from admission. Currently on 2 L nasal cannula. General: non toxic, no distress, appears at stated age Derm: warm, dry Head: atraumatic, normocephalic, symmetric Eyes: EOMI, no lid lag, anicteric sclera Cardiovascular: Good distal perfusion all 4 extremities Lungs: No accessory muscle use, speaking in full sentences Ext: no gross muscle atrophy, no edema, no contractures Neuro: no focal neuro deficits Psych: Alert, oriented, appropriate affect Acute hypoxic respiratory failure Sepsis secondary to community acquired pneumonia Elevated D-Dimer Resolved: Hypokalemia, Hypochloremic hyponatremia Based on my assessment of this patient, this patient meets a moderate complexity level of care. Patient has a new diagnosis of acute hypoxic respiratory failure secondary to community-acquired pneumonia with uncertain prognosis. He is currently on 2 L nasal cannula. Continued on Rocephin 1 g IV daily, azithromycin 500 mg IV daily . Toradol 50 mg IV every 6 hours as stated for pain. Sputum and blood culture ordered. Continue telemetry monitoring. Pulmonology on board. He is pending clinical improvement. Heparin SQ for DVT prophylaxis. I have reviewed the following planning consultant notes: Pulmonology note 11/23, continue present management, repeat chest x-ray tomorrow. I have reviewed the results of the following tests: CBC shows leukocytosis of 11.2. BMP shows glucose of 110, calcium of 7.9. Pro- calcitonin 0.75. Influenza, RSV, COVID-19 negative. Legionella antigen negative. I have ordered the following tests: Agree with chest x-ray ordered for tomorrow morning. I have discussed the care of this patient with the following independent historian: None. I have independently interpreted the following test below: None. I have discussed the management of this patient with the following physician: None. Objective - Vital Signs Vital signs: Vital Signs Temp 97.6 F 11/23/22 07:36 Pulse 78 11/23/22 07:36 Resp 18 11/23/22 08:00 BP 109/72 11/23/22 07:36 Pulse Ox 96 11/23/22 07:36 FiO2 Intake & Output 11/22/22 11/23/22 11/23/22 18:59 06:59 18:59 Weight 124.738 kg Other: Voiding Method Toilet Toilet Urinal Urinal # Voids 1 - Labs CBC & Chem 7: 11/23/22 06:11 11/23/22 06:11 Labs: Abnormal Lab Results - Last 24 Hours (Table) 11/22/22 11/23/22 11/23/22 Range/Units 11:10 06:11 06:11 WBC 11.2 H (3.8-10.6) k/uL Neutrophils # 9.0 H (1.3-7.7) k/uL Glucose 110 H (74-99) mg/dL Calcium 7.9 L (8.4-10.2) mg/dL Procalcitonin 0.75 H (0.02-0.09) ng/mL Microbiology - Last 24 Hours (Table) 11/22/22 12:50 Gram Stain - Preliminary Sputum Sputum Culture - Preliminary
[2022-11-23] MEDS: KETOROLAC 15 MG/ML 1 ML VIAL IVP PRN (17:25)
[2022-11-23] MEDS: ATORVASTATIN 40 MG TAB PO SCH (21:00)
[2022-11-23] MEDS: ALPRAZolam 0.25 MG TAB PO PRN (21:02)
[2022-11-24] MEDS: HEPARIN SODIUM,PORCINE/PF 5,000 UNIT/0.5 ML SYRINGE SQ SCH ×2 (00:10→08:21)
[2022-11-24 07:37] VITALS: RESP 18
[2022-11-24] MEDS: allopurinoL 100 MG TAB PO SCH (08:21)
[2022-11-24] MEDS: lisinopriL 5 MG TAB PO SCH (08:21)
[2022-11-24 11:37] VITALS: BP 122/75; PULSE 69; TEMP 98
--- NOTE | 2022-11-24 12:04 | P.PN ---
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 The patient has no previous history of lung disease. No asthma. No emphysema. No recurrent pneumonias. His cough progressively got worse and the patient had some brown sputum. No hemoptysis. Was having some pleuritic left posterior chest pain. He also felt feverish. He saw his primary care physician. He was given a dose of IM antibiotics in the office and following that he was started on doxycycline. However, his condition got worse and he ended up coming into the hospital for further workup. Chest x- ray was done. Computed tomography scan of the chest showed no central pulmonary embolism. There was patchy multifocal pneumonia and significant amount of consolidation of the left lower lung base more so posteriorly. No reported aspiration. The white cell count 15.4 with a hemoglobin 12.7 and a d-dimer is at 1.1. Sodium is at 131. Troponins at 0.01. Covid 19, influenza and RSV were negative. Pulse ox 92% on room air oxygen. The patient was started on Rocephin and Zithromax. Sputum cultures being collected. The patient also has history of colon cancer stage II postresection adjuvant chemotherapy. On today's evaluation of 11/23/2022, the patient is feeling much better and and his cough has subsided. He continues to have some discomfort along the left posterior chest area. He remains on Rocephin and Zithromax. Is afebrile. Sputum sample is collected and that is also still pending for now. His blood work shows a sodium level of 137, BUN is 40 with a creatinine of 0.7 and a pro- calcitonin level is at 0.75. Legionella urine antigen still pending. The patient is seen today 11/24/2022 in follow-up on the regular medical floor. He is currently sitting up in a chair at the bedside. Awake and alert in no acute distress. No worsening shortness of breath, cough or congestion. He is feeling quite a bit better. Chest x-ray reveals improved aeration and he is maintaining good O2 saturations in the 90s on room air. Urine legionella antigen was negative. He remains on ceftriaxone and azithromycin. Heparin for DVT prophylaxis. Objective - Vital Signs Vital signs: Vital Signs Temp 98 F 11/24/22 11:22 Pulse 69 11/24/22 11:22 Resp 18 11/24/22 11:22 BP 122/75 11/24/22 11:22 Pulse Ox 93 L 11/24/22 11:22 FiO2 Intake & Output 11/23/22 11/24/22 11/24/22 18:59 06:59 18:59 Intake Total 120 Balance 120 Intake: Oral 120 Other: Voiding Method Toilet Toilet Toilet Urinal Urinal Urinal # Voids 2 1 # Bowel Movements 1 - Exam GENERAL EXAM: Alert, pleasant 62-year-old male, on room air, comfortable in no apparent distress. HEAD: Normocephalic. EYES: Normal reaction of pupils, equal size. NOSE: Clear with pink turbinates. THROAT: No erythema or exudates. NECK: No masses, no JVD. CHEST: No chest wall deformity. LUNGS: Equal air entry with no crackles, wheeze, rhonchi or dullness. CVS: S1 and S2 normal with no audible murmur, regular rhythm. ABDOMEN: No hepatosplenomegaly, normal bowel sounds, no guarding or rigidity. SPINE: No scoliosis or deformity SKIN: No rashes CENTRAL NERVOUS SYSTEM: No focal deficits, tone is normal in all 4 extremities. EXTREMITIES: There is no peripheral edema. No clubbing, no cyanosis. Peripheral pulses are intact. - Labs CBC & Chem 7: 11/23/22 06:11 11/23/22 06:11 Labs: Abnormal Lab Results - Last 24 Hours (Table) 11/23/22 Range/Units 06:11 WBC 11.2 H (3.8-10.6) k/uL Neutrophils # 9.0 H (1.3-7.7) k/uL Microbiology - Last 24 Hours (Table) 11/22/22 06:30 Blood Culture - Preliminary Blood 11/22/22 06:10 Blood Culture - Preliminary Blood 11/23/22 19:30 Sputum Culture - Preliminary Sputum 11/22/22 12:50 Gram Stain - Preliminary Sputum Sputum Culture - Preliminary Assessment and Plan Assessment: Acute community-acquired multifocal pneumonia worse in the left lower lobe. The patient has patchy infiltrate with significant consolidation of the left lung base follow-up chest x-ray showing improvement Acute hypoxic respiratory failure secondary to above, currently on room air oxygen with a pulse ox of 93% Acute leukocytosis improved Hypovolemic hyponatremia probably related to some nausea and emesis, recovered History of colon cancer History of hypertension Plan: The patient was seen and evaluated Chest x-ray, labs and medications reviewed Urine legionella antigen negative X-ray showing improvement Patient feeling back to his baseline Cleared for discharge from the pulmonary standpoint Complete course of antibiotics Follow-up in the office in 1 week I have personally seen and examined the patient, performed the documentation and the assessment and plan as written. Number of minutes spent on the visit: 10.
--- NOTE | 2022-11-24 12:17 | P.DS ---
Providers Date of admission: 11/22/22 06:02 Expected date of discharge: 11/24/22 Attending physician: Vishal Booth MD Consults: 11/22/22 06:02 Consult Physician Routine Consulting Provider: Guadalupe Collins Consult Reason/Comments: pneumonia, hypoxic resp failure Do you want consulting provider notified?: Yes Primary care physician: Alvarez Peters MD Hospital Course: Patient is a 62-year-old male with a PMH of stage II colon cancer status post resection and chemotherapy, and hypertension who presents to the emergency room with complaints of cough, fever, nausea, vomiting. CT angiogram of chest in the emergency room revealed multifocal pneumonia with reactive adenopathy with no evidence of PE. EKG revealed sinus tachycardia at [address]/T-wave changes are as reviewed by me. Laboratory evaluation was remarkable for leukocytosis of 15.4, hemoglobin 12.7, sodium 131, potassium 3.1, d-dimer 1.19, , troponin less than 0.012 with influenza, RSV, and coronavirus testing negative. Vital signs were reviewed with SpO2 92% on room air upon presentation with pulse 111. Patient was started on Rocephin and azithromycin and admitted for treatment of pneumonia. 11/23 Patient was seen and examined. No acute events overnight. Patient reports shortness of breath especially with exertion. Symptoms have improved slightly from admission. Currently on 2 L nasal cannula. 11/24 Patient was seen and examined. Patient reports significant improvement in his breath. States that his is 90% better. Cleared by pulmonology for discharge. Pertinent studies include chest x-ray, chest CT. Patient be discharged home on doxycycline 100 mg by mouth twice a day for 5 more days to complete a total of 7 days antibiotics. Follow-up with PCP within 1-2 days of discharge. Follow-up with pulmonology within 1 week of discharge. General: non toxic, no distress, appears at stated age Derm: warm, dry Head: atraumatic, normocephalic, symmetric Eyes: EOMI, no lid lag, anicteric sclera Cardiovascular: Good distal perfusion all 4 extremities Lungs: No accessory muscle use, speaking in full sentences Ext: no gross muscle atrophy, no edema, no contractures Neuro: no focal neuro deficits Psych: Alert, oriented, appropriate affect Discharge diagnosis: Acute hypoxic respiratory failure Sepsis secondary to community acquired pneumonia Elevated D-Dimer Resolved: Hypokalemia, Hypochloremic hyponatremia This complex discharge took 35 minutes to complete. Patient Condition at Discharge: Stable Plan - Discharge Summary New Discharge Prescriptions: Continue hydroCHLOROthiazide [Hydrodiuril] 25 mg PO DAILY lisinopriL [Zestril] 5 mg PO HS Ondansetron Odt [Zofran ODT] 4 mg PO Q8HR PRN PRN Reason: Nausea Doxycycline Monohydrate 100 mg PO BID #10 cap [place]-3 Fatty Acids/Fish Oil [Fish Oil 1,000 mg Softgel] 1 cap PO DAILY allopurinoL [Zyloprim] 100 mg PO DAILY Atorvastatin [Lipitor] 40 mg PO HS Ferrous Gluconate 240 mg PO DAILY Discharge Medication List hydroCHLOROthiazide [Hydrodiuril] 25 mg PO DAILY 12/08/13 [History] lisinopriL [Zestril] 5 mg PO HS 01/05/18 [History] [place]-3 Fatty Acids/Fish Oil [Fish Oil 1,000 mg Softgel] 1 cap PO DAILY 07/30/21 [History] allopurinoL [Zyloprim] 100 mg PO DAILY 07/30/21 [History] Atorvastatin [Lipitor] 40 mg PO HS 11/22/22 [History] Ferrous Gluconate 240 mg PO DAILY 11/22/22 [History] Ondansetron Odt [Zofran ODT] 4 mg PO Q8HR PRN 11/22/22 [History] Doxycycline Monohydrate 100 mg PO BID #10 cap 11/24/22 [Rx] Follow up Appointment(s)/Referral(s): Alvarez Peters MD [Primary Care Provider] - 11/26/22 2:40 pm Guadalupe Collins MD [STAFF PHYSICIAN] - 12/15/22 1:00 pm (They will call you if they get an appointment sooner.) Patient Instructions/Handouts: Doxycycline (By mouth), Dyspnea (DC), Pneumonia (DC) Discharge Disposition: HOME SELF-CARE
--- NOTE | 2022-11-24 14:50 | XR ---
EXAMINATION TYPE: XR chest 2V DATE OF EXAM: 11/24/2022 COMPARISON: 11/22/2022 INDICATION: Pneumonia and hypoxia TECHNIQUE: Frontal and lateral views of the chest are obtained. FINDINGS: The heart size is normal. The pulmonary vasculature is normal. Mild left lower lobe infiltrate is present. This may be greater in the retrocardiac region. Findings are worsening over the interval.. IMPRESSION: 1. Developing left lower lobe infiltrate. Correlate for atelectasis and pneumonia. Worsening from com parison
[2022-11-25 05:23] LABS: Mycoplasma IgG Antibody (EIA) 7.67 INDEX (<=0.90); Mycoplasma IgM Antibody 0.8 INDEX (<=0.90)
== END 2022-11-24 13:13 | disposition home or self-care (01) | DRG 871 ==
LOC: EC 23:34 → 4SSUR 11-22 06:02 → 5NMEDONC 11-22 19:42
PROVIDERS: ADMIT Internal Medicine; ATTEND Internal Medicine
DX: A41.9 Sepsis, unspecified organism (principal); J96.01 Acute respiratory failure with hypoxia; E87.1 Hypo-osmolality and hyponatremia; M10.9 Gout, unspecified; R65.20 Severe sepsis without septic shock; E86.1 Hypovolemia; Z20.822 Contact with and (suspected) exposure to COVID-19; E87.6 Hypokalemia; E87.8 Other disorders of electrolyte and fluid balance, not elsewhere classified; I10 Essential (primary) hypertension; Z79.899 Other long term (current) drug therapy; Z85.038 Personal history of other malignant neoplasm of large intestine; Z90.49 Acquired absence of other specified parts of digestive tract
CPT/HCPCS: 36415; 71046; 71275; 80048; 80053; 83880; 84145; 84484; 85025; 85379; 85610; 85730; 86738; 87040; 87070; 87205; 87449; 87636; 93005; 96361; 96365; 96367; 96372; 96375; 99285

== ENCOUNTER → 2022-12-29 | Outpatient (CLI) | payer BC ==
--- NOTE | 2022-12-29 07:33 | US ---
EXAMINATION TYPE: US abdomen limited DATE OF EXAM: 12/29/2022 COMPARISON: US CLINICAL INDICATION: Male, 62 years old with history of R74.8 ABN LEVELS SERUM ENZYMES; Abnormal labs TECHNIQUE: Multiple sonographic images of the right upper quadrant are obtained. FINDINGS: EXAM MEASUREMENTS: Liver Length: 20.6 cm Gallbladder Wall: 0.2 cm CBD: 0.6 cm Right Kidney: 12.8 x 6.0 x 6.3 cm COMPUTING ARCHITECT NOTES: Large pt body habitus and overlying bowel gas, VERY difficult to penetrate and v isualize abdominal structures Pancreas: ?thickened body/ tail obscured by overlying bowel gas Liver: Enlarged, heterogenous, difficult to penetrate Gallbladder: limited visualization, lumen appeared clear Evidence for sonographic Aceves's sign: No CBD: wnl Right Kidney: No evidence of hydro, lower pole gassed out IMPRESSION: 1. Limited exam with poor visualization of the pancreatic tail. 2. Hepatic steatosis 3. No evidence for acute process.
== END | disposition home or self-care (01) ==
LOC: RADUSWWP 06:54
PROVIDERS: ATTEND Internal Medicine
DX: K76.0 Fatty (change of) liver, not elsewhere classified (principal); R74.8 Abnormal levels of other serum enzymes
CPT/HCPCS: 76705

== ENCOUNTER → 2023-01-08 | Outpatient (CLI) | payer BC ==
[2023-01-08 17:16] LABS: Basophils # (A) 0.06 X 10*3/uL (0.00-0.10); Basophils % (A) 0.7 %; Eosinophils # (A) 0.12 X 10*3/uL (0.04-0.35); Eosinophils % (A) 1.4 %; HCT 47.3 % (39.6-50.0); HGB 15.1 d/dL (12.0-15.0); Lymphocytes # (A) 2.19 X 10*3/uL (0.90-5.00); Lymphocytes % (A) 25.8 %; MCH 26.4 pg (27.0-32.0); MCHC 31.9 d/dL (32.0-37.0); MCV 82.5 FL (80.0-97.0); Mean Platelet Volume 10.9 FL (9.5-12.2); Monocytes # (A) 0.55 X 10*3/uL (0.20-1.00); Monocytes % (A) 6.5 %; NRBC Per 100 WBC 0 X 10*3/uL (0.00-0.01); Neutrophils # (A) 5.56 X 10*3/uL (1.80-7.70); Neutrophils % (A) 65.5 %; Platelet Count 231 X 10*3/uL (140-440); RBC 5.73 X 10*6/uL (4.40-5.60); RDW 14.6 % (11.5-14.5); WBC 8.49 X 10*3/uL (4.50-10.00)
[2023-01-08 17:45] LABS: BUN/Creat Ratio 16.56 Ratio (12.00-20.00); Blood Urea Nitrogen 14.9 mg/dL (9.0-27.0); Chloride 102 mmol/L (96-109); Glucose 86 mg/dL (70-110); Sodium 140 mmol/L (135-145)
[2023-01-08 17:46] LABS: ALT 15 U/L (10-49); AST 14 U/L (14-35); Albumin 4.7 d/dL (3.8-4.9); Albumin/Globulin Ratio 1.57 Ratio (1.60-3.17); Alkaline Phosphatase 108 U/L (41-126); Calcium 9.8 mg/dL (8.7-10.3); Carbon Dioxide 24.4 mmol/L (21.6-31.8); Hepatitis A Antibody IgM Nonreactive; Hepatitis B Core IgM Nonreactive; Hepatitis B Surface Antigen Nonreactive; Hepatitis C IgG Antibody Nonreactive; Total Bilirubin 0.4 mg/dL (0.3-1.2); Total Protein 7.7 d/dL (6.2-8.2)
== END | disposition home or self-care (01) ==
LOC: LABWHC1 10:30
PROVIDERS: ATTEND Nurse Practitioner Family
DX: R74.8 Abnormal levels of other serum enzymes (principal)
CPT/HCPCS: 36415; 80053; 80074; 83516; 85025

== ENCOUNTER → 2023-01-09 | Outpatient (CLI) | payer BC ==
--- NOTE | 2023-01-09 10:33 | MR ---
EXAMINATION TYPE: MR MRCP DATE OF EXAM: 01/09/2023 7:42 AM CLINICAL INDICATION:Male, 62 years old with history of R74.8 COMPARISON: CT 04/17/2020 TECHNIQUE: Multi planar, T2-weighted imaging with and without fat saturation and chemical shift imag ing was performed of the abdomen. Then, heavily T2 weighted imaging (half-Fourier acquisition single- shot turbo spin-echo) was utilized in order to study the biliary system. Maximum intensity projectio n images were reconstructed from the original data of the biliary tree. 3D images were created on [employer] work station. No Gadolinium given. FINDINGS: MRCP: The intrahepatic ducts have a normal appearance. The common bile duct at the level of the molina creatic head measures 8 mm in size. The common hepatic duct measures 7 mm in size. The pancreatic du ct is normal. The gallbladder appears multiple layering gallstones are in the gallbladder lumen. Abdomen: Liver: Unremarkable. Pancreas: 7 mm pancreatic body cystic structure Spleen: Unremarkable. Adrenal glands: Unremarkable. Kidneys: Unremarkable. Stomach and Bowel: Second portion duodenal diverticulum. Peritoneum: No evidence of pneumoperitoneum, free fluid, or adenopathy. Vasculature: Unremarkable. No aortic aneurysm. Abdominal wall: Unremarkable. Musculoskeletal: The osseous structures appear intact. IMPRESSION: 1. No evidence to suggest ductal stricture or choledocholithiasis. 2. Ductal dilation of the extrahepatic very system is mild. Not significantly different from CT 04/17 given differences in technique. 3. Cholelithiasis. 4. Pancreatic body 7 mm cystic lesion could represent intraductal papillary mucinous neoplasm. Follo w-up imaging one year to ensure stability is recommended.
== END | disposition home or self-care (01) ==
LOC: RADMRIMAIN 06:28
PROVIDERS: ATTEND Internal Medicine
DX: K80.20 Calculus of gallbladder without cholecystitis without obstruction (principal); K86.2 Cyst of pancreas; K83.9 Disease of biliary tract, unspecified
CPT/HCPCS: 74181

== ENCOUNTER → 2023-02-06 | Outpatient (CLI) | payer BC ==
--- NOTE | 2023-02-06 09:33 | XR ---
EXAMINATION TYPE: XR chest 2V DATE OF EXAM: 02/06/2023 COMPARISON: NONE HISTORY: Shortness of breath TECHNIQUE: Frontal and lateral views of the chest are obtained. FINDINGS: Scattered senescent parenchymal changes noted. Hyperinflation compatible with COPD. No evidence for infiltrate. No evidence for atelectasis. Heart size is stable. Mediastinal structures are stable and grossly unremarkable. No evidence for hilar prominence. Degenerative changes dorsal spine. IMPRESSION: 1. No evidence for acute pulmonary disease.
== END | disposition home or self-care (01) ==
LOC: RADXRMAIN 09:04
PROVIDERS: ATTEND Internal Medicine
DX: J45.909 Unspecified asthma, uncomplicated (principal)
CPT/HCPCS: 71046

== ENCOUNTER → 2023-08-01 | Outpatient (CLI) | payer BC ==
[2023-08-01 16:04] LABS: Basophils # (A) 0.06 X 10*3/uL (0.00-0.10); Basophils % (A) 0.8 %; Eosinophils # (A) 0.12 X 10*3/uL (0.04-0.35); Eosinophils % (A) 1.6 %; HCT 45.2 % (39.6-50.0); HGB 14.4 g/dL (13.0-17.0); Lymphocytes # (A) 1.87 X 10*3/uL (0.90-5.00); Lymphocytes % (A) 24.9 %; MCH 26.6 pg (27.0-32.0); MCHC 31.9 g/dL (32.0-37.0); MCV 83.4 FL (80.0-97.0); Mean Platelet Volume 11.1 FL (9.5-12.2); Monocytes # (A) 0.51 X 10*3/uL (0.20-1.00); Monocytes % (A) 6.8 %; NRBC Per 100 WBC 0 X 10*3/uL (0.00-0.01); Neutrophils # (A) 4.94 X 10*3/uL (1.80-7.70); Neutrophils % (A) 65.6 %; Platelet Count 214 X 10*3/uL (140-440); RBC 5.42 X 10*6/uL (4.40-5.60); RDW 14.6 % (11.5-14.5); WBC 7.52 X 10*3/uL (4.50-10.00)
[2023-08-01 17:44] LABS: ALT 18 U/L (10-49); AST 19 U/L (14-35); Albumin 4.4 g/dL (3.8-4.9); Albumin/Globulin Ratio 1.63 Ratio (1.60-3.17); Alkaline Phosphatase 107 U/L (41-126); BUN/Creat Ratio 18.11 Ratio (12.00-20.00); Blood Urea Nitrogen 16.3 mg/dL (9.0-27.0); Calcium 9.4 mg/dL (8.7-10.3); Carbon Dioxide 21.5 mmol/L (21.6-31.8); Chloride 102 mmol/L (96-109); Chol/HDL Ratio 3.92 Ratio; Globulin 2.7 g/dL (1.6-3.3); Glucose 112 mg/dL (70-110); LDL Cholesterol,Calculated 58.8 mg/dL (0.0-131.0); Potassium 4.6 mmol/L (3.5-5.5); Prostate Specific Antigen 0.47 ng/mL (0.000-4.500); Sodium 137 mmol/L (135-145); Total Bilirubin 0.6 mg/dL (0.3-1.2); Total Protein 7.1 g/dL (6.2-8.2); Uric Acid 6.7 mg/dL (3.7-8.7)
== END | disposition home or self-care (01) ==
LOC: LABWHC1 08:16
PROVIDERS: ATTEND Internal Medicine
DX: Z12.5 Encounter for screening for malignant neoplasm of prostate (principal); I10 Essential (primary) hypertension; M10.9 Gout, unspecified
CPT/HCPCS: 36415; 80053; 80061; 83036; 84153; 84443; 84550; 85025

== ENCOUNTER → 2023-10-29 | Outpatient (CLI) | payer BC ==
--- NOTE | 2023-10-29 15:41 | XR ---
EXAMINATION TYPE: XR chest 2V DATE OF EXAM: 10/29/2023 COMPARISON: 02/06/2023 HISTORY: 62-year-old male R05.9, unspecified cough TECHNIQUE: Frontal and lateral views FINDINGS: Heart normal size. Aorta and pulmonary vasculature within normal limits. Some strandy atelectasis in the lower lungs. No consolidation or pleural effusion. IMPRESSION: No acute cardiopulmonary process.
== END | disposition home or self-care (01) ==
LOC: RADXRMAIN 13:02
PROVIDERS: ATTEND Internal Medicine
DX: R05.9 Cough, unspecified (principal)
CPT/HCPCS: 71046

== ENCOUNTER → 2024-01-25 | Outpatient (CLI) | payer BC ==
--- NOTE | 2024-01-25 13:40 | MR ---
MR MRCP INDICATION: Patient age:Male; 63 years old; Reason for study: K86.2 CYST OF PANCREAS; [facility]. COMPARISON: MRCP 01/09/2023. TECHNIQUE: Multi planar, T2-weighted imaging with and without fat saturation and chemical shift imag ing was performed of the abdomen. Then, heavily T2 weighted imaging (half-Fourier acquisition single- shot turbo spin-echo) was utilized in order to study the biliary system. Maximum intensity projectio n images were reconstructed from the original data of the biliary tree. 3D images were created on a [employer] work station. No Gadolinium given. FINDINGS: MRCP: The intrahepatic ducts have a normal appearance. The common bile duct at the level of the molina creatic head measures 7 mm in size. The common hepatic duct measures 8 mm in size. The pancreatic du ct is normal. Several tiny gallstones identified layering within the gallbladder. No wall thickening or surrounding inflammatory changes. Abdomen: Liver: Unremarkable. Pancreas: Stable 6 mm pancreatic body cystic structure (series 301, image 25). Evaluation is limited due to lack of intravenous contrast. Spleen: Unremarkable. Adrenal glands: Unremarkable. Kidneys: Unremarkable. Stomach and Bowel: Second portion duodenal diverticulum redemonstrated. Peritoneum: No evidence of pneumoperitoneum, free fluid, or adenopathy. Vasculature: Unremarkable. No aortic aneurysm. Abdominal wall: Unremarkable. Musculoskeletal: The osseous structures appear intact. IMPRESSION: 1. No evidence to suggest ductal stricture or choledocholithiasis. 2. No significant biliary ductal dilatation. 3. Cholelithiasis. 4. Stable pancreatic body 6 mm cystic lesion which likely represents an intraductal papillary mucino us neoplasm.
== END | disposition home or self-care (01) ==
LOC: RADMRIMAIN 08:03
PROVIDERS: ATTEND Internal Medicine Gastroenterology
DX: K80.20 Calculus of gallbladder without cholecystitis without obstruction (principal); K86.2 Cyst of pancreas
CPT/HCPCS: 74181

== ENCOUNTER → 2024-02-11 | Outpatient (CLI) | payer BC ==
[2024-02-11 16:52] VITALS: BP 128/85; PULSE 105; RESP 16; TEMP 97.8
--- NOTE | 2024-02-11 17:50 | P.SLEEP ---
History of Present Illness DATE: 02/11/2024 CONSULTATION/NEW PATIENT EVALUATION HISTORY OF PRESENT ILLNESS/SLEEP-WAKE EVALUATION: 63-year-old gentleman had be en evaluated in the sleep center for possible obstructive sleep apnea hypopnea syndrome. SLEEP SCHEDULE: Usually sleep schedule from 9 PM to 4:45 AM on weekdays and from 9:30 PM to 7 AM on weekend. FALLING ASLEEP: No problems with falling asleep. DURING SLEEP: Patient has loud snoring and witnessed episodes of stop breathing during sleep by his . Positive history of heartburn, gasping for air. Patient wakes up at night once to use bathroom. No history of hypnogogical hallucinations, sleep paralysis, or cataplexy. DURING THE DAY/WAKE STATE: In the morning patient wake up tired, worries about his sleep. [place] sleepiness scale is significantly increased to 15. Patient take nap at 3:30 PM. PAST MEDICAL HISTORY: Hypertension, gout, hyperlipidemia, anxiety, kidney stones. PAST SURGICAL HISTORY: Colon resection for cancer treatment. MEDICATIONS: Please see below. SOCIAL HISTORY: Please see below. FAMILY HISTORY: Heart problems. REVIEW OF SYSTEMS: Loud snoring, stop breathing during sleep, sleepiness during the day. No fevers. No double vision. No recent chest pain. No shortness of breath. No abdominal pain. No bleeding episodes. No blood in urine. No seizure episodes. PHYSICAL EXAMINATION: GENERAL: A pleasant patient without any distress. VITAL SIGNS: Please see below, weight 295 pounds, BMI 41.7. HEENT: PERRLA, EOMI. Evaluation of oropharynx showed tongue protrudes midline, low position of soft palate Mallampati 4. NECK: Supple. No JVD. Thyroid is not palpable. 21 inches in circumference. LUNGS: Clear to percussion and to auscultation. Good air exchange. No wheezing or rhonchi. HEART: S1, S2 regular. No murmurs, gallops or rubs. ABDOMEN: Soft and nontender. Bowel sounds are present. No organomegaly appreciated. EXTREMITIES: No clubbing or cyanosis. FORMS ANALYST: Awake, alert, and oriented x3. Cranial nerves 2 to 7 intact. There is no fasciculation or atrophy noted. No focal deficits observed. ASSESSMENT: 1. Loud snoring, witnessed episodes of stop breathing during the sleep, extremely low position of soft palate Mallampati 4, extremely wide neck 21 inches in circumference. Obstructive sleep apnea hypopnea syndrome. 2. Obesity, BMI 41.7. 3. Hypertension. 4. Gout. 5 hyperlipidemia. 6 . Anxiety. 7. Status post surgical treatment for colon cancer. 8. History of kidney stones. PLAN: 1. Polysomnography for evaluation of patient's breathing during sleep. 2. Following plan after reading sleep study. 3. Preferable position during sleep on the side. 4. No driving if patient feels any sleepiness. Patient is aware of civil and criminal liability for unsafe driving. 5. Sleep hygiene with regular sleep time for at least 7.5-8 hours. 6. Watching and losing weight. Thank you very much for referring this patient for consultation. Sincerely, Jay Greenwood MD, PhD, FAASM. Diplomat of [place] [employer], Sleep Medicine Board by [place] [employer] [place] [employer] Glass Frame Fitter [facility] [place] cc: Alvarez Schmitt DO Past Medical History Past Medical History: Cancer, Hypertension Additional Past Medical History / Comment(s): HX COLON Cancer, gout, kidney stones History of Any Multi-Drug Resistant Organisms: None Reported Past Surgical History: Bowel Resection Additional Past Surgical History / Comment(s): PORT A CATH/later removed , lithotripsy Past Anesthesia/Blood Transfusion Reactions: No Reported Reaction Past Psychological History: No Psychological Hx Reported Smoking Status: Never smoker Past Alcohol Use History: None Reported Past Drug Use History: None Reported - Past Family History Father History Unknown: Yes Mother History Unknown: Yes Sister(s) Family Medical History: Cancer Additional Family Medical History / Comment(s): TONGUE Medications and Allergies Home Medications Medication Instructions Recorded Confirmed Type lisinopriL [Zestril] 5 mg PO HS 01/05/18 02/11/24 History [place]-3 Fatty Acids/Fish Oil [Fish 1 cap PO DAILY 07/30/21 02/11/24 History Oil 1,000 mg Softgel] allopurinoL [Zyloprim] 100 mg PO DAILY 07/30/21 02/11/24 History Atorvastatin [Lipitor] 40 mg PO HS 11/22/22 02/11/24 History ALPRAZolam [Xanax] 0.25 mg PO DAILY PRN 02/11/24 02/11/24 History Cyclobenzaprine [Flexeril] 5 mg PO HS PRN 02/11/24 02/11/24 History Sildenafil Citrate 100 mg PO 02/11/24 History Allergies Allergy/AdvReac Type Severity Reaction Status Date / Time codeine AdvReac Nausea & Verified 11/22/22 12:03 [From Tylenol-Codeine #3] Vomiting hydrocodone [From [place]] AdvReac constipatio Verified 11/22/22 12:03 n Physical Exam Vitals: Vital Signs Temp Pulse Resp BP Pulse Ox 02/11/24 16:52 97.8 F 105 H 16 128/85 95 Intake and Output 02/11/24 02/11/24 02/11/24 06:59 14:59 22:59 Other: Weight 133.81 kg Sleep Note - Sleep Data ESS Total: 15 - Sleep Note Sleep Note: Temperature: 97.8 F Pulse Rate: 105 Respiratory Rate: 16 Blood Pressure: 128/85 SpO2: 95 Height: 5 ft 10.5 in Weight: 133.81 kg BMI: Neck Circumference: 21
== END ==
LOC: 3 N SLEEP 16:18
PROVIDERS: ATTEND Internal Medicine
DX: G47.33 Obstructive sleep apnea (adult) (pediatric) (principal); E66.9 Obesity, unspecified; I10 Essential (primary) hypertension; M10.9 Gout, unspecified; E78.5 Hyperlipidemia, unspecified; F41.9 Anxiety disorder, unspecified; Z98.890 Other specified postprocedural states; Z87.442 Personal history of urinary calculi; Z85.038 Personal history of other malignant neoplasm of large intestine; Z68.41 Body mass index [BMI] 40.0-44.9, adult; Z88.5 Allergy status to narcotic agent; Z79.899 Other long term (current) drug therapy
CPT/HCPCS: 99211

== ENCOUNTER → 2024-03-28 | Outpatient (CLI) | payer BC ==
--- NOTE | 2024-04-06 17:24 | P.PCN ---
Description of Procedure: CLINICAL: A home sleep apnea test has been done for confirmation of possible obstructive sleep apnea-hypopnea syndrome. DESCRIPTION OF PROCEDURE: RESULTS: Recording time was 7 hours. 33 Minutes. Evaluation time was 7 hours 22 minutes. Evaluation time is sufficient for making conclusion about results of the test. Raw data of sleep recording has been reviewed and is adequate. Respiratory channel showed 118 apneas and 392 hypopneas. Apnea-hypopnea index was 69.2 per hour. Pulse rate in the range between minimum 40, maximum 107, average 83 by computer calculation. Lowest desaturation was 74%. IMPRESSION: 1. Severe Obstructive Sleep Apnea Hypopnea Syndrome with severe oxygen desaturation. Please see other impressions from consultation. PLAN: 1. The patient should have PAP titration for correction of respiratory abnormallities during sleep. 2. Sleep hygiene with regular time in bed for at least 8 hours. 3. Watching and aggressive losing weight. 4. No driving if feeling any sleepiness. Thank you very much for allowing me to participate in the management of your patient. Sincerely, Jay Greenwood MD, PhD, FAASM Diplomat of [place] [employer] Sleep Medicine Board of [place] [employer] Internal Medicine Key Account Manager [facility] [place] cc: Alvarez Peters DO
== END ==
LOC: 3 N SLEEP 14:37
PROVIDERS: ATTEND Internal Medicine

== ENCOUNTER 2024-03-29 19:39 | Outpatient (CLI) | payer BC ==
--- NOTE | 2024-03-30 11:15 | P.PCN ---
Description of Procedure: CLINICAL: Titration with positive air pressure has been done for correction of respiratory abnormalities during sleep. DESCRIPTION OF PROCEDURE: The standard montage for clinical polysomnography included the electroencephalogram, the electrocardiogram, the mentalis surface electromyography and Lead II cardiography. The respiratory battery consisted of measurements of nasal /buccal air flow, pressure transducer measurements from the nose, thoracic and /or abdominal effort and intercostal surface electromyography. Video monitoring has been done to check for any parasomnia events. Nocturnal oxyhemoglobin saturations were obtained by finger oximetry. Step-kaur titration with positive airway pressure was utilized to control respiratory events. Raw data of sleep recording has been reviewed and is adequate. RESULTS: Sleep efficiency was borderline 87.3%. Latency to sleep onset was normal 11.5 minutes.]. Sleep architecture showed stage N1 was slightly decreased to 3.0%, Delta sleep was not high range 19.2%, REM sleep was increased to 31.4%. Heart rate was minimum 70 BPM, maximum 82 BPM, average 74 BPM. EMG showed 0 periodic limb movements per hour. PAP titration have been done with CPAP up to the pressure 14 cm H2O. Patient had problems with CPAP, switched to BPAP. BPAP titrated up to 16/12 cm H2O. The best results were at the pressure 14 cm H2O. Apnea hypopnea index reduced to 0, but patient was at that pressure for short period of time. IMPRESSION: 1. Severe obstructive sleep apnea hypopnea syndrome mostly on controle with PAP treatment. 2. No significant periodic limb movements have been documented. Please see other impressions from consultation. PLAN: 1. The patient will have treatment with positive air pressure equipment with the level of pressure AutoPAP 6-14 cm H2O and should use it every night for the whole night. 2. Watching and losing weight. 3. Sleep hygiene with regular time in bed for at least 8 hours. 4. No driving if feeling any sleepiness. 5. I will see the patient for follow up visit to explain the results of the test, recommendations, check compliance with treatment and make any necessary adjustment related to mask fitting, pressure and humidification. Thank you very much for allowing me to participate in the management of your patient. Sincerely, Jay Greenwood MD, PhD, FAASM Diplomat of [place] [employer] Sleep Medicine Board of [place] [employer] of Internal Medicine Cask Maker [facility] [place] cc: Alvarez Schmitt DO
== END 2024-03-30 06:50 | disposition home or self-care (01) ==
LOC: 3 N SLEEP 19:39
PROVIDERS: ATTEND Internal Medicine
CPT/HCPCS: 95811

== ENCOUNTER → 2024-06-22 | Outpatient (CLI) | payer BC ==
[2024-06-22 15:03] VITALS: BP 118/77; PULSE 104; RESP 16; TEMP 97.6
--- NOTE | 2024-06-22 15:17 | P.PROGSL ---
Subjective DATE: 06/22/2024 FOLLOW UP VISIT. Patient with obstructive sleep apnea hypopnea syndrome return to sleep center for follow-up visit. Recently patient had sleep study which documented obstructive sleep apnea hypopnea syndrome. Patient was initiated on PAP therapy and today is first visit after treatment was started. I explained to the patient results of sleep studies in details. He has severe sleep apnea with apnea-hypopnea index 69.2. Patient was able to use PAP equipment every night for the whole night. The patient does not have significant problems with the mask, PAP pressure and humidification. [place] sleepiness scale is 11. I checked information from PAP unit. PAP unit pressure 6-14, average 13.5 cm H2O. Usage is 100% for more then 4 hours, average 7.70 hours per night. Leak is slightly increased to 34 l/m. Apnea Hypopnea Index is slightly increased to 7.6. MEDICATIONS: Please see below During physical exam: GENERAL: A pleasant patient without any distress. VITAL SIGNS: Please see below. HEENT: PERRLA, EOMI.low position of soft palate, Mallapati 4 . NECK: Supple. No JVD. LUNGS: Clear to percussion and to auscultation. Good air exchange. No wheezing or rhonchi. HEART: S1, S2 regular. ABDOMEN: Soft and nontender. Obese EXTREMITIES: No clubbing or cyanosis. CLAY PIGEON LOADER: Awake, alert, and oriented x3. No focal deficit. Impressions: 1. Severe obstructive sleep apnea-hypopnea syndrome, apnea hypopnea index 69.2. Patient demonstrated great compliance with treatment, benefiting from treatment. 2. Obesity, weight 294 pounds, BMI 41. 3. Hypertension. 4. Gout. 5. Anxiety. 6. Hyperlipidemia. 7. History of kidney stones. 8. Status post surgical treatment for colon cancer. I increased range of the pressure in CPAP unit 6-15 cm of water. Plan: 1. Continue using PAP equipment every night for the whole night. 2. To change air filter at least 1-2 times per month. 3. PAP unit should stay lower then position of the head. 4. Advised patient to remove all remaining water from humidifier canister daily and make it dry after each usage. Refill canister with fresh distilled water before each usage. 5. Sleep hygiene with regular time in bed for at least 8 hours. 6. Precautions related to driving. No driving if feel any sleepiness. 7. I will maintain prescription for PAP supplies including mask, tube, filters. 8. Follow up visit in 8 months or earlier if patient has any problems. 9. Watching weight. Thank you very much for allowing me to participate in the management of your patient. Jay Greenwood MD, PhD, FAASM. Diplomat of [place] [employer] Sleep Medicine, Sleep Medicine Board by [place] [employer] Ear Flap Binder [facility] [place] Objective - Vital Signs Vital Signs: Vital Signs Temp 97.6 F 06/22/24 15:01 Pulse 104 H 06/22/24 15:01 Resp 16 06/22/24 15:01 BP 118/77 06/22/24 15:01 Pulse Ox 94 L 06/22/24 15:01 FiO2 Home Medications: Home Medications Medication Instructions Recorded Confirmed Type lisinopriL [Zestril] 5 mg PO HS 01/05/18 02/11/24 History [place]-3 Fatty Acids/Fish Oil [Fish 1 cap PO DAILY 07/30/21 02/11/24 History Oil 1,000 mg Softgel] allopurinoL [Zyloprim] 100 mg PO DAILY 07/30/21 02/11/24 History Atorvastatin [Lipitor] 40 mg PO HS 11/22/22 02/11/24 History ALPRAZolam [Xanax] 0.25 mg PO DAILY PRN 02/11/24 02/11/24 History Cyclobenzaprine [Flexeril] 5 mg PO HS PRN 02/11/24 02/11/24 History Sildenafil Citrate 100 mg PO 02/11/24 History
== END ==
LOC: 3 N SLEEP 14:52
PROVIDERS: ATTEND Internal Medicine
DX: G47.33 Obstructive sleep apnea (adult) (pediatric) (principal); E66.9 Obesity, unspecified; Z68.41 Body mass index [BMI] 40.0-44.9, adult; I10 Essential (primary) hypertension; M10.9 Gout, unspecified; F41.9 Anxiety disorder, unspecified; E78.5 Hyperlipidemia, unspecified; Z98.890 Other specified postprocedural states; Z99.89 Dependence on other enabling machines and devices; Z88.5 Allergy status to narcotic agent
CPT/HCPCS: 99212

== ENCOUNTER → 2024-08-13 | Outpatient (CLI) | payer BC ==
[2024-08-13 13:44] LABS: ALT 19 U/L (10-49); AST 18 U/L (14-35); Albumin 4.5 g/dL (3.8-4.9); Alkaline Phosphatase 115 U/L (41-126); BUN/Creat Ratio 15.44 Ratio (12.00-20.00); Blood Urea Nitrogen 13.9 mg/dL (9.0-27.0); Calcium 9.3 mg/dL (8.7-10.3); Carbon Dioxide 23.1 mmol/L (21.6-31.8); Chloride 104 mmol/L (96-109); Chol/HDL Ratio 3.74 Ratio; Glucose 107 mg/dL (70-110); LDL Cholesterol,Calculated 57.1 mg/dL (0.0-131.0); Magnesium 1.9 mg/dL (1.5-2.4); Potassium 4.6 mmol/L (3.5-5.5); Prostate Specific Antigen 0.54 ng/mL (0.000-4.500); Sodium 139 mmol/L (135-145); Total Bilirubin 0.5 mg/dL (0.3-1.2); Total Protein 7.5 g/dL (6.2-8.2); Uric Acid 6.8 mg/dL (3.7-8.7)
[2024-08-13 14:10] LABS: Basophils # (A) 0.05 X 10*3/uL (0.00-0.10); Basophils % (A) 0.6 %; Eosinophils # (A) 0.11 X 10*3/uL (0.04-0.35); Eosinophils % (A) 1.4 %; HCT 43.7 % (39.6-50.0); HGB 13.6 g/dL (13.0-17.0); Lymphocytes # (A) 2.02 X 10*3/uL (0.90-5.00); Lymphocytes % (A) 25.4 %; MCH 26.1 pg (27.0-32.0); MCHC 31.1 g/dL (32.0-37.0); MCV 83.9 FL (80.0-97.0); Mean Platelet Volume 10.9 FL (9.5-12.2); Monocytes # (A) 0.51 X 10*3/uL (0.20-1.00); Monocytes % (A) 6.4 %; NRBC Per 100 WBC 0 X 10*3/uL (0.00-0.01); Neutrophils # (A) 5.24 X 10*3/uL (1.80-7.70); Neutrophils % (A) 65.8 %; Platelet Count 203 X 10*3/uL (140-440); RBC 5.21 X 10*6/uL (4.40-5.60); RDW 14.6 % (11.5-14.5); WBC 7.96 X 10*3/uL (4.50-10.00)
== END | disposition home or self-care (01) ==
LOC: LABWHC1 08:30
PROVIDERS: ATTEND Internal Medicine
DX: I10 Essential (primary) hypertension (principal); Z12.5 Encounter for screening for malignant neoplasm of prostate; E78.5 Hyperlipidemia, unspecified; M10.9 Gout, unspecified; R73.03 Prediabetes
CPT/HCPCS: 36415; 80053; 80061; 83036; 83735; 84153; 84443; 84550; 85025

== ENCOUNTER → 2025-01-25 | Outpatient (CLI) | payer BC ==
--- NOTE | 2025-01-25 11:05 | MR ---
EXAMINATION TYPE: MR MRCP DATE OF EXAM: 01/25/2025 6:44 AM COMPARISON: 01/25/2024 01/09/2023. CLINICAL INDICATION: Male, 64 years old with history of K86.2 CYST OF PANCREAS; [facility], F/U pancreatic c yst. TECHNIQUE: Multi planar, T2-weighted imaging with and without fat saturation and chemical shift imag ing was performed of the abdomen. Then, heavily T2 weighted imaging (half-Fourier acquisition single- shot turbo spin-echo) was utilized in order to study the biliary system. Maximum intensity projectio n images were reconstructed from the original data of the biliary tree. 3D images were created on a [employer] work station. No Gadolinium given. FINDINGS: MRCP: The intrahepatic ducts have a normal appearance. The common bile duct at the level of the molina creatic head measures 7 mm in size. The common hepatic duct measures 8 mm in size. The pancreatic du ct is normal. Several tiny gallstones identified layering within the gallbladder. No wall thickening or surrounding inflammatory changes. Abdomen: Liver: Unremarkable. Pancreas: Cystic lesion is not well appreciated due to slice selection on today's exam. No new lesion s. No solid mass. No dilated ducts. Evaluation is limited due to lack of intravenous contrast. Spleen: Unremarkable. Adrenal glands: Unremarkable. Kidneys: Unremarkable. Stomach and Bowel: Second portion duodenal diverticulum redemonstrated. Peritoneum: No evidence of pneumoperitoneum, free fluid, or adenopathy. Vasculature: Unremarkable. No aortic aneurysm. Abdominal wall: Unremarkable. Musculoskeletal: The osseous structures appear intact. IMPRESSION: 1. Pancreatic body cystic lesions not well appreciated on today's exam possibly due to slice selecti on. No evidence to suggest ductal stricture or choledocholithiasis. 2. No significant biliary ductal dilatation. 3. Cholelithiasis. [facility], , 01/25/2025 11:03 AM
== END | disposition home or self-care (01) ==
LOC: RADMRIMAIN 06:01
PROVIDERS: ATTEND Internal Medicine Gastroenterology
DX: K86.2 Cyst of pancreas (principal); K80.20 Calculus of gallbladder without cholecystitis without obstruction
CPT/HCPCS: 74181

== ENCOUNTER → 2025-02-03 | Outpatient (CLI) | payer BC ==
[2025-02-03 15:54] LABS: ALT 19 U/L (10-49); AST 18 U/L (14-35); Albumin 4.3 g/dL (3.8-4.9); Albumin/Globulin Ratio 1.65 Ratio (1.60-3.17); Alkaline Phosphatase 99 U/L (41-126); Alpha Fetoprotein, Tumor Mkr <3.00 ng/mL (0.00-7.90); Anion Gap 11.00 mmol/L (4.00-12.00); BUN/Creat Ratio 17.67 Ratio (12.00-20.00); Blood Urea Nitrogen 15.9 mg/dL (9.0-27.0); Calcium 9.2 mg/dL (8.7-10.3); Carbon Dioxide 23.0 mmol/L (21.6-31.8); Chloride 104 mmol/L (96-109); Globulin 2.6 g/dL (1.6-3.3); Glucose 107 mg/dL (70-110); Potassium 4.9 mmol/L (3.5-5.5); Sodium 138 mmol/L (135-145); Total Protein 6.9 g/dL (6.2-8.2)
== END | disposition home or self-care (01) ==
LOC: LABWHC1 08:17
PROVIDERS: ATTEND Nurse Practitioner Family
DX: K86.2 Cyst of pancreas (principal)
CPT/HCPCS: 36415; 80053; 82105; 86301